=== PATIENT | female | born 1985 | race Caucasian/White ===

== ENCOUNTER → 2017-12-10 13:36 | Outpatient (CLI) | payer OTHER, SELFPAY ==
--- NOTE | 2017-12-10 13:37 | DI.MRI.S_ITS ---
PROCEDURE: MR LUMBAR SPINE WO CON INDICATIONS: Back pain w/sciatica RLE TECHNIQUE: Noncontrast sagittal T1 spin echo and T2 fast echo, sagittal STIR, axial T1 and T2 fast spin echo through the lumbar spine. In cases with scoliosis, additional coronal T2 fast spin echo may be performed. COMPARISON: [facility], , L-SPINE 2-3 VIEWS, 10/05/2014, 12:23. FINDINGS: Image quality: Motion degraded examination. Alignment and Curvature: There is normal bony alignment. Bone Marrow: Marrow is of normal overall signal. No acute vertebral body compression fractures. Lower lumbar facet arthropathy from L4-S1 Spinal Cord: Conus medullaris terminates at the L2 level. Visualized cord demonstrates normal signal and size. Paraspinous Soft Tissues: No paravertebral masses. Dependent subcutaneous soft tissue edema seen from the level of L1-L4 primarily. L1-L2: Normal appearance. L2-L3: Normal appearance. L3-L4: Normal appearance. L4-L5: Normal appearance. L5-S1: Mild disc height loss and broad-based posterior disc bulge. Superimposed small central disc protrusion image 30 series 5. There is mild central canal narrowing. Mild partial effacement of the left and right lateral recess although does not definitely abut the descending nerve roots. Moderate right foraminal narrowing. Mild left foraminal stenosis. IMPRESSION: L5-S1 disc degeneration and lower lumbar facet arthropathy. Moderate right L5-S1 foraminal narrowing. Mild left foraminal narrowing Dictated by: Sunny Benjamin M.D. on 12/10/2017 at 14:55 Approved by: Sunny Benjamin M.D. on 12/10/2017 at 15:02
== END ==
PROVIDERS: PCP Physician Assistant; Visit Provider Physician Assistant
DX: M51.17 Intervertebral disc disorders with radiculopathy, lumbosacral region (principal); M47.27 Other spondylosis with radiculopathy, lumbosacral region; M48.07 Spinal stenosis, lumbosacral region
CPT/HCPCS: 72148

== ENCOUNTER → 2018-04-03 11:22 | Outpatient (CLI) | payer OTHER, SELFPAY ==
--- NOTE | 2018-04-03 11:24 | DI.RAD.S_ITS ---
PROCEDURE: XR FINGER LT MIN 2V INDICATIONS: Possible broken thumb TECHNIQUE: AP hand, 2 views of the first finger(s) acquired. COMPARISON: None. FINDINGS: Bones: No fractures or dislocations. No suspicious bony lesions. Soft tissues: No suspicious soft tissue calcifications. IMPRESSION: No gross acute left thumb fracture or dislocation. Dictated by: Akshat Sanchez M.D. on 04/03/2018 at 12:00 Approved by: Akshat Sanchez M.D. on 04/03/2018 at 12:03
== END ==
PROVIDERS: PCP Physician Assistant; Visit Provider Physician Assistant
DX: S69.92XA Unspecified injury of left wrist, hand and finger(s), initial encounter (principal)
CPT/HCPCS: 73140

== ENCOUNTER → 2018-09-16 15:42 | Outpatient (CLI) | payer OTHER, SELFPAY ==
[2018-09-16 16:46] LABS: Alanine Aminotransferase 47 IU/L (9-52); Albumin 4.3 g/dL (3.5-5.0); Albumin Globulin Ratio 1.4 (1.0-2.8); Alkaline Phosphatase 78 U/L (38-126); Aspartate Aminotransferase 29 IU/L (14-36); BUN Creatinine Ratio 26.7 (6-22); Bilirubin Total 0.4 mg/dL (0.2-1.3); Blood Urea Nitrogen 16 mg/dL (7-17); Calcium 9.1 mg/dL (8.4-10.2); Carbon Dioxide 23 mmol/L (22-32); Chloride 107 mmol/L (98-107); Estimated Glomerular Filt Rate > 60.0 mL/min (>60); Globulin 3.1 g/dL (1.7-4.1); Glucose 84 mg/dL (70-100); HEMOLYSIS < 15 (0-50); Potassium 3.6 mmol/L (3.4-5.1); Sodium 140 mmol/L (137-145); Total Protein 7.4 g/dL (6.3-8.2)
[2018-09-16 16:59] LABS: Prolactin 20.1 ng/mL (3.0-18.6)
[2018-09-16 17:00] LABS: Follicle Stimulating Hormone 5.61 mIU/mL; Luteinizing Hormone 2.07 mIU/mL; Progesterone, Total 0.84 ng/mL
[2018-09-16 17:13] LABS: Thyroid Stimulating Hormone 0.73 uIU/mL (0.47-4.68)
[2018-09-16 17:16] LABS: Estradiol, Total 31.1 pg/mL; Testosterone 26.4 ng/dL (5.71-77.0)
[2018-09-18 12:28] LABS: Dehydroepiandrosterone Sulfate 269 mcg/dL (23-266)
[2018-09-19 20:01] LABS: Estrogen 129.9 pg/mL
== END ==
PROVIDERS: PCP Physician Assistant; Visit Provider Physician Assistant
DX: L68.0 Hirsutism (principal); N92.6 Irregular menstruation, unspecified; R10.2 Pelvic and perineal pain; E66.01 Morbid (severe) obesity due to excess calories; Z68.41 Body mass index [BMI] 40.0-44.9, adult
CPT/HCPCS: 36415; 80053; 82627; 82670; 82672; 83001; 83002; 84144; 84146; 84403; 84443

== ENCOUNTER → 2018-11-05 11:44 | Outpatient (CLI) | payer OTHER, SELFPAY ==
--- NOTE | 2018-11-05 11:47 | DI.MRI.S_ITS ---
PROCEDURE: MR BRAIN (PITUITARY) WWO CON INDICATIONS: Elevated Prolactin and DHEA levels; irreg menses; wt gain TECHNIQUE: Noncontrast sagittal and axial FLAIR, axial gradient echo, axial diffusion and ADC through the brain. Thin-slice sagittal and coronal T1 spin echo, coronal T2 fast spin echo through the pituitary. After the administration contrast, optional dynamic coronal T1 spin echo, thin-slice coronal and sagittal T1 spin echo images through the pituitary fossa; axial T1 spin echo with fat saturation through the brain. COMPARISON: None. FINDINGS: Image quality: Excellent. Pituitary Gland: The pituitary tissue is largely seen along the floor of the sella turcica.. On the postcontrast imaging, no masses or abnormally enhancing areas are seen. The pituitary stalk and infundibulum have an unremarkable appearance. A normal appearing pituitary bright spot is seen posteriorly on the precontrast sagittal T1-weighted images. The optic chiasm and the ventral forebrain have an unremarkable appearance. CSF Spaces: Ventricles are normal in size and shape. Basal cisterns are patent. No extra-axial fluid collections. Brain: No intracranial bleeds or mass effects. No abnormal intracranial enhancement. Huitron-white matter interface is intact. Diffusion weighted images demonstrate no acute ischemic insults. Brainstem is normal. Normal intravascular flow voids are present. Skull and face: Calvarial marrow is normal in signal. Orbits appear normal. Scrutiny is given to the posterior globes. It does not appear flattened. The optic nerves are unremarkable, without abnormal fluid seen along the optic nerves. Sinuses: Moderate mucosal thickening is seen within the layers of the significant paranasal sinus disease is seen elsewhere. No significant abnormal mastoid air cell can be seen. IMPRESSION: No pituitary masses or abnormal enhancement can be seen. The pituitary tissue is largely compressed along the floor of the sella turcica. Dictated by: Nic Angel M.D. on 11/05/2018 at 13:24 Approved by: Nic Angel M.D. on 11/05/2018 at 13:27
== END ==
PROVIDERS: PCP Physician Assistant; Visit Provider Physician Assistant
DX: E22.9 Hyperfunction of pituitary gland, unspecified (principal); N92.6 Irregular menstruation, unspecified; R63.5 Abnormal weight gain; E27.8 Other specified disorders of adrenal gland
CPT/HCPCS: 70553

== ENCOUNTER 2019-01-08 15:56 | Emergency (ER) | payer OTHER, SELFPAY ==
[2019-01-08 16:05] VITALS: BP 135/87; PULSE 94; RESP 18; TEMP 37.1; O2SAT 99; BMI 40.7
--- NOTE | 2019-01-08 16:25 | ED.GENADULT ---
HPI - General Adult <Zohaib Holt DO - Last Filed: 01/09/19 17:59> General Chief complaint: Urogenital-Female Stated complaint: tumors on or near ovary, has pains Time Seen by Provider: 01/08/19 16:10 Source: patient Mode of arrival: Ambulatory Limitations: no limitations History of Present Illness HPI narrative: 33-year-old female here for evaluation of acute onset of right-sided lower abdomen/adnexal pain. Patient states she has known large dermoid cyst diagnosed by her weight loss counselor provider. She has also been on control for the past 10 days secondary to PCOS. She was told that if she ever had worsening abdominal pain she should come to the emergency department for concern of ovarian torsion. Related Data Home Medications Medication Instructions Recorded Confirmed pseudoephedrine HCl 30 mg PO Q6HP PRN #0 11/23/15 01/08/19 magnesium oxide 500 mg PO BEDTIME #0 05/02/17 01/08/19 multivitamin [Multiple Vitamins] 1 tab PO DAILY #0 05/02/17 01/08/19 cetirizine 10 mg PO DAILY PRN #0 05/28/17 01/08/19 albuterol sulfate [Proventil HFA] 2 puff INH Q4H PRN 01/08/19 01/08/19 clonazepam 0.5 - 1 mg PO DAILY PRN 01/08/19 01/08/19 desog-e.estradiol/e.estradiol 1 tab PO QPM 01/08/19 01/08/19 [Kariva (28)] gabapentin [Neurontin] 300 mg PO BEDTIME 01/08/19 01/08/19 methocarbamol 500 - 1,000 mg PO DAILY PRN 01/08/19 01/08/19 sertraline 50 mg PO QPM 01/08/19 01/08/19 Previous Rx's Medication Instructions Recorded oxycodone 5 mg tablet 5 - 10 mg PO QDAYP PRN #40 tab 12/02/18 oxycodone 5 mg PO Q4-6H PRN #10 tab 01/08/19 Allergies Allergy/AdvReac Type Severity Reaction Status Date / Time adhesive [ADHESIVE] Allergy Mild Rash Verified 01/08/19 16:05 acetaminophen [From [facility]CO] AdvReac Intermediate MADE ME Verified 01/08/19 16:05 FEEL WIRED. I COULDN'T SLEEP. NOT EFFECTIVE hydrocodone [From [facility]CO] AdvReac Intermediate MADE ME Verified 01/08/19 16:05 FEEL WIRED. I COULDN'T SLEEP. NOT EFFECTIVE Review of Systems <Zohaib Holt DO - Last Filed: 01/09/19 17:59> Constitutional Constitutional: Denies fever(s) Cardiovascular Cardiovascular: Denies chest pain and Denies dyspnea Respiratory Respiratory: Denies dyspnea Gastrointestinal Gastrointestinal: Reports abdominal pain, Denies nausea and Denies vomiting Genitourinary Genitourinary: Denies dysuria, Reports pelvic pain and Denies vaginal discharge Musculoskeletal Musculoskeletal: Denies myalgias and Denies arthralgias Integumentary/Breasts Skin/Breast: Denies lesions and Denies rash Neurologic Neurologic: Denies behavioral changes Psychiatric Psychiatric: Denies behavioral changes Hematologic/Lymphatic Hematologic/Lymphatic: Denies easy bleeding and Denies easy bruising Patient History <DO Richy Pillai Last Filed: 01/09/19 17:59> Medical History Vaginal delivery (Acute) Surgical History (Updated 06/19/17 @ 06:34 by Conversion Provider) Status post tonsillectomy and adenoidectomy Social History Smoking Status: Never smoker second hand exposure: No alcohol intake: current substance use type: does not use Substance Use Type: does not use Exam <DO Richy Pillai Last Filed: 01/09/19 17:59> Initial Vital Signs Initial Vital Signs: Vital Signs Temperature 98.8 F 01/08/19 16:05 Pulse Rate 94 H 01/08/19 16:05 Respiratory Rate 18 01/08/19 16:05 Blood Pressure 135/87 01/08/19 16:05 Pulse Oximetry 99 01/08/19 16:05 Const General: cooperative and comfortable Orientation: alert, awake and oriented x3 HENMT Head: normal to inspection and normocephalic Resp Effort & Inspection: normal respiratory effort Auscultation: clear to auscultation bilaterally Cardio Rate: regular rate Rhythm: regular rhythm GI Inspection: non-distended Palpation: soft, No firm and tender (Left lower abdomen left adnexa) Back/Spine/Pelvis Back: No CVA tenderness Skin Lesions: no lesions Rashes: no rashes Neuro General: alert, awake and oriented x3 Cognition: normal cognition Speech: speech normal Extrem General: normal to inspection and capillary refill normal Psych Appearance: grossly normal and well kempt <Brown Magdaleno DO - Last Filed: 01/08/19 23:23> Initial Vital Signs Initial Vital Signs: Vital Signs Temperature 98.8 F 01/08/19 16:05 Pulse Rate 94 H 01/08/19 16:05 Respiratory Rate 18 01/08/19 16:05 Blood Pressure 135/87 01/08/19 16:05 Pulse Oximetry 99 01/08/19 16:05 Course <Zohaib Holt DO - Last Filed: 01/09/19 17:59> Orders Ordered: Discontinued Medications Hydromorphone HCl (Dilaudid) 0.5 mg IV NOW ONE Stop: 01/08/19 17:21 Last Admin: 01/08/19 17:26 Dose: 0.5 mg Documented by: MALOU Hydromorphone HCl (Dilaudid) 0.5 mg IV NOW ONE Stop: 01/08/19 18:49 Last Admin: 01/08/19 19:02 Dose: 0.5 mg Documented by: CARMENARRINGJUSTINA Morphine Sulfate (Morphine) 4 mg IV NOW ONE Stop: 01/08/19 16:28 Last Admin: 01/08/19 16:46 Dose: 4 mg Documented by: ANANYA Ondansetron HCl (Zofran) 4 mg IV NOW ONE Stop: 01/08/19 16:28 Last Admin: 01/08/19 16:46 Dose: 4 mg Documented by: CARMENARRINGJUSTINA Vital Signs Vital signs: Vital Signs - 8 hr 01/08/19 16:05 01/08/19 16:53 01/08/19 17:10 Temperature 98.8 F Pulse Rate 94 H 89 91 H Respiratory Rate 18 17 22 Blood Pressure 135/87 Blood Pressure [Right Arm] 116/74 119/81 Pulse Oximetry 99 98 98 01/08/19 18:00 01/08/19 19:10 Temperature Pulse Rate 87 Respiratory Rate 16 Blood Pressure Blood Pressure [Right Arm] 122/77 107/75 Pulse Oximetry 97 <Brown Magdaleno DO - Last Filed: 01/08/19 23:23> Course Course Narrative: Patient has been signed out to me by Dr. Holt. I have performed an independent history and physical exam. Ultrasound demonstrates good flow to both ovaries, torsion thought much less likely at this point. Her pain is drastically improved. I have discussed the case with her hop worker whom suggest we discharged her home with good return precautions as she has an appointment scheduled for Sunday already. Patient has had questions answered to her apparent satisfaction Orders Ordered: Discontinued Medications Hydromorphone HCl (Dilaudid) 0.5 mg IV NOW ONE Stop: 01/08/19 17:21 Last Admin: 01/08/19 17:26 Dose: 0.5 mg Documented by: MALOU Hydromorphone HCl (Dilaudid) 0.5 mg IV NOW ONE Stop: 01/08/19 18:49 Last Admin: 01/08/19 19:02 Dose: 0.5 mg Documented by: CAMRENARRINGJUSTINA Morphine Sulfate (Morphine) 4 mg IV NOW ONE Stop: 01/08/19 16:28 Last Admin: 01/08/19 16:46 Dose: 4 mg Documented by: CARMENARRINGJUSTINA Ondansetron HCl (Zofran) 4 mg IV NOW ONE Stop: 01/08/19 16:28 Last Admin: 01/08/19 16:46 Dose: 4 mg Documented by: CARMENARRINGJUSTINA Vital Signs Vital signs: Vital Signs - 8 hr 01/08/19 16:05 01/08/19 16:53 01/08/19 17:10 Temperature 98.8 F Pulse Rate 94 H 89 91 H Respiratory Rate 18 17 22 Blood Pressure 135/87 Blood Pressure [Right Arm] 116/74 119/81 Pulse Oximetry 99 98 98 01/08/19 18:00 01/08/19 19:10 Temperature Pulse Rate 87 Respiratory Rate 16 Blood Pressure Blood Pressure [Right Arm] 122/77 107/75 Pulse Oximetry 97 Medical Decision Making <Zohaib Holt, DO - Last Filed: 01/09/19 17:59> Medical Records Medical records reviewed: Yes I reviewed the patient's medical records. Lab Data Lab results reviewed: Yes I reviewed the patient's lab results. Result diagrams: 01/08/19 16:41 01/08/19 16:41 Labs: Lab Results 01/08/19 01/08/19 Range/Units 16:41 16:41 WBC 9.0 (4.5-11.0) X10^3/uL RBC 4.49 (4.0-5.2) X10^6/uL Hgb 13.5 (12.0-16.0) g/dL Hct 39.0 (36-46) % MCV 86.8 (80-100) fL MCH 30.1 (26-34) PG MCHC 34.7 (30-36) % RDW 13.1 (11.6-14.8) % Plt Count 235 (150-400) X10^3/uL Neut % (Auto) 66.3 (50-75) % Lymph % (Auto) 25.5 (25-40) % [place] % (Auto) 6.1 (3-14) % Eos % (Auto) 0.9 L (2-4) % Baso % (Auto) 1.2 (0-2) % Neut # (Auto) 6000 (6466-0070) /uL Lymph # (Auto) 2300 (0920-4064) /uL [place] # (Auto) 600 (0-900) /uL Eos # (Auto) 100 (0-450) /uL Baso # (Auto) 100 (0-100) /uL Sodium 139 (137-145) mmol/L Potassium 4.2 (3.4-5.1) mmol/L Chloride 107 (98-107) mmol/L Carbon Dioxide 22 (22-32) mmol/L BUN 15 (7-17) mg/dL Creatinine 0.60 (0.52-1.04) mg/dL Estimated GFR > 60.0 (>60) mL/min BUN/Creatinine Ratio 25.0 H (6-22) Glucose 92 (70-100) mg/dL Calcium 9.3 (8.4-10.2) mg/dL Point of Care Testing Test Results Negative Urine Dip Bedside Urine Glucose Negative Bedside Urine Bilirubin ++ 2 Bedside Urine Ketone +/- 5 Urine Specific [place] 1.020 Bedside Urine Occult Blood - Negative Bedside Urine pH 6.0 Bedside Urine Protein +/- 15 Bedside Urine Urobilinogen +/- 1mg Bedside Urine Nitrite - Negative Bedside Urine Leukocytes - Negative Esterase Point of care testing: Point of Care Testing Test Results Negative Urine Dip Bedside Urine Glucose Negative Bedside Urine Bilirubin ++ 2 Bedside Urine Ketone +/- 5 Urine Specific [place] 1.020 Bedside Urine Occult Blood - Negative Bedside Urine pH 6.0 Bedside Urine Protein +/- 15 Bedside Urine Urobilinogen +/- 1mg Bedside Urine Nitrite - Negative Bedside Urine Leukocytes - Negative Esterase MDM Narrative Medical decision making narrative: Patient with known large dermoid cyst. Patient does have left lower quadrant/left adnexal pain. Ultrasound ordered for evaluation of ovarian torsion. Care turned over to Dr. Magdaleno at change of shift to follow up on ultrasound. <Brown Magdaleno DO - Last Filed: 01/08/19 23:23> Lab Data Labs: Lab Results 01/08/19 01/08/19 Range/Units 16:41 16:41 WBC 9.0 (4.5-11.0) X10^3/uL RBC 4.49 (4.0-5.2) X10^6/uL Hgb 13.5 (12.0-16.0) g/dL Hct 39.0 (36-46) % MCV 86.8 (80-100) fL MCH 30.1 (26-34) PG MCHC 34.7 (30-36) % RDW 13.1 (11.6-14.8) % Plt Count 235 (150-400) X10^3/uL Neut % (Auto) 66.3 (50-75) % Lymph % (Auto) 25.5 (25-40) % [place] % (Auto) 6.1 (3-14) % Eos % (Auto) 0.9 L (2-4) % Baso % (Auto) 1.2 (0-2) % Neut # (Auto) 6000 (5479-8010) /uL Lymph # (Auto) 2300 (3213-9811) /uL [place] # (Auto) 600 (0-900) /uL Eos # (Auto) 100 (0-450) /uL Baso # (Auto) 100 (0-100) /uL Sodium 139 (137-145) mmol/L Potassium 4.2 (3.4-5.1) mmol/L Chloride 107 (98-107) mmol/L Carbon Dioxide 22 (22-32) mmol/L BUN 15 (7-17) mg/dL Creatinine 0.60 (0.52-1.04) mg/dL Estimated GFR > 60.0 (>60) mL/min BUN/Creatinine Ratio 25.0 H (6-22) Glucose 92 (70-100) mg/dL Calcium 9.3 (8.4-10.2) mg/dL Point of Care Testing Test Results Negative Urine Dip Bedside Urine Glucose Negative Bedside Urine Bilirubin ++ 2 Bedside Urine Ketone +/- 5 Urine Specific [place] 1.020 Bedside Urine Occult Blood - Negative Bedside Urine pH 6.0 Bedside Urine Protein +/- 15 Bedside Urine Urobilinogen +/- 1mg Bedside Urine Nitrite - Negative Bedside Urine Leukocytes - Negative Esterase Point of care testing: Point of Care Testing Test Results Negative Urine Dip Bedside Urine Glucose Negative Bedside Urine Bilirubin ++ 2 Bedside Urine Ketone +/- 5 Urine Specific [place] 1.020 Bedside Urine Occult Blood - Negative Bedside Urine pH 6.0 Bedside Urine Protein +/- 15 Bedside Urine Urobilinogen +/- 1mg Bedside Urine Nitrite - Negative Bedside Urine Leukocytes - Negative Esterase Discharge Plan Departure Patient Disposition: Home Clinical Impression: Pelvic pain, Dermoid cyst of both ovaries Discharge Date/Time: 01/08/19 19:18 Instructions: DI for Pelvic Pain Activity Restrictions/Additional Instructions: *You have been diagnosed with [pelvic pain, likely from dermoid cysts ] *What to do: *Take medications as directed *Follow up with 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 on Sunday as planned *Return to ER if you should have any new, worsening or concerning symptoms, such as [worsening pain, persistent vomiting, fever >101F, or other bothersome symptoms ] Prescriptions: New oxycodone 5 mg tablet 5 mg PO Q4-6H PRN (Reason: pain) Qty: 10 RF: 0 No Action pseudoephedrine HCl 30 MG tablet 30 mg PO Q6HP PRN (Reason: Congestion) Qty: 0 RF: 0 magnesium oxide 500 mg Tablet 500 mg PO BEDTIME Qty: 0 RF: 0 multivitamin [Multiple Vitamins] 1 EACH tablet 1 tab PO DAILY Qty: 0 RF: 0 cetirizine 10 MG tablet 10 mg PO DAILY PRN (Reason: Allergy Symptoms) Qty: 0 RF: 0 oxycodone 5 mg tablet 5 - 10 mg PO QDAYP PRN (Reason: back pain) Qty: 40 RF: 0 methocarbamol 500 mg tablet 500 - 1,000 mg PO DAILY PRN (Reason: muscle spasm) RF: 0 clonazepam 1 mg tablet 0.5 - 1 mg PO DAILY PRN (Reason: Anxiety) RF: 0 gabapentin [Neurontin] 300 mg capsule 300 mg PO BEDTIME RF: 0 albuterol sulfate [Proventil HFA] 90 MCG/PUFF HFA aerosol inhaler 2 puff INH Q4H PRN (Reason: Shortness Of Breath) RF: 0 sertraline 50 mg tablet 50 mg PO QPM RF: 0 desog-e.estradiol/e.estradiol [Kariva (28)] 0.15-0.02 mgx21 /0.01 mg x 5 tablet 1 tab PO QPM RF: 0 Referrals: Maye Borja PA-C [Primary Care Provider] -
--- NOTE | 2019-01-08 16:27 | DI.US.S_ITS ---
PROCEDURE: US PELVIC COMPLETE INDICATIONS: KNOWN DERMOID; INCREASING PAIN TECHNIQUE: Real-time scanning was performed of the pelvic organs, with image documentation. Additional endovaginal scanning was necessary due to incomplete visualization of the adnexal and endometrial structures by transabdominal scanning. COMPARISON: [facility], US, US PELVIC COMPLETE, 12/17/2018, 15:39. FINDINGS: Transabdominal scanning: Limited scanning through the kidneys shows no hydronephrosis. No pathologic free abdominal or pelvic fluid. Endovaginal scanning: Uterus: Uterus is normal in size at 7.5 x 4.3 x 5.0 cm. The endometrium measures 5-6 mm in combined thickness. Ovaries: Right ovary is unremarkable measuring 2.4 x 2.1 x 3.1 cm. Doppler interrogation demonstrating the expected waveforms The left ovary measures 2.4 x 1.5 cm and there is a large 9.3 x 8.5 x 9.4 cm known dermoid with heterogeneous echotexture. Doppler interrogation demonstrates expected waveforms within the left ovary. IMPRESSION: Large known left dermoid. No evidence of ovarian torsion Dictated by: Sunny Benjamin M.D. on 01/08/2019 at 19:36 Approved by: Sunny Benjamin M.D. on 01/08/2019 at 19:38
[2019-01-08] MEDS: MORPHINE 4 MG/ML INJ IV (16:46)
[2019-01-08] MEDS: ONDANSETRON 4 MG/2 ML INJ IV (16:46)
[2019-01-08 16:50] LABS: Add Manual Diff / Slide Review NO; Basophils Absolute Auto 100 /uL (0-100); Basophils Percent Auto 1.2 % (0-2); Eosinophils Absolute Auto 100 /uL (0-450); Eosinophils Percent Auto 0.9 % (2-4); Hemoglobin 13.5 g/dL (12.0-16.0); Lymphocytes Absolute Auto 2300 /uL (1100-4500); Lymphocytes Percent Auto 25.5 % (25-40); Mean Corpuscular HGB Conc 34.7 % (30-36); Mean Corpuscular Hemoglobin 30.1 PG (26-34); Mean Corpuscular Volume 86.8 fL (80-100); Monocytes Absolute Auto 600 /uL (0-900); Monocytes Percent Auto 6.1 % (3-14); Neutrophils Absolute Auto 6000 /uL (1500-7000); Neutrophils Percent Auto 66.3 % (50-75); Platelet Count 235 X10^3/uL (150-400); Red Blood Cell Count 4.49 X10^6/uL (4.0-5.2); Red Cell Distribution Width 13.1 % (11.6-14.8)
[2019-01-08 16:53] VITALS: BP 116/74; PULSE 89; RESP 17; O2SAT 98
[2019-01-08 17:03] LABS: Blood Urea Nitrogen 15 mg/dL (7-17); Calcium 9.3 mg/dL (8.4-10.2); Carbon Dioxide 22 mmol/L (22-32); Chloride 107 mmol/L (98-107); Estimated Glomerular Filt Rate > 60.0 mL/min (>60); Glucose 92 mg/dL (70-100); HEMOLYSIS 42 (0-50); Potassium 4.2 mmol/L (3.4-5.1); Sodium 139 mmol/L (137-145)
[2019-01-08 17:10] VITALS: BP 119/81; PULSE 91; RESP 22; O2SAT 98
[2019-01-08] MEDS: HYDROMORPHONE 0.5 MG INJ IV ×2 (17:26→19:02)
[2019-01-08 18:00] VITALS: BP 122/77
[2019-01-08 19:10] VITALS: BP 107/75; PULSE 87; RESP 16; O2SAT 97
== END 2019-01-08 19:18 | disposition home or self-care (01) ==
PROVIDERS: Emergency Medicine; Emergency Provider Emergency Medicine; PCP Physician Assistant
DX: R10.2 Pelvic and perineal pain (principal); D27.1 Benign neoplasm of left ovary; D27.0 Benign neoplasm of right ovary
CPT/HCPCS: 36415; 76830; 76856; 80048; 81003; 81025; 85025; 96374; 96375; 96376; 99283; 99284; J1170; J2270; J2405

== ENCOUNTER 2019-01-24 06:35 | Day surgery (SDC) | payer OTHER, SELFPAY ==
[2019-01-22 13:25] VITALS: BMI 40.1
[2019-01-24] VITALS (10 sets, daily range): BP systolic 103–127; BP diastolic 59–82; PULSE 93–135; RESP 10–20; TEMP 36.9–37.2; O2SAT 96–100; BMI 40.1
--- NOTE | 2019-01-24 | PATH_ITS ---
[facility] Accession Number: [id number] . 01 Material submitted: . uterine adnexa - LEFT OVARY, FALLOPIAN TUBE AND DERMOID CYST . 02 Diagnosis: Left Fallopian Tube, Ovary and Dermoid Cyst: Complete cross-sections of fallopian tube x1; negative for epithelial atypia or malignancy. Ovary with a mature cystic teratoma / dermoid cyst (8.5 x 6.8 x 2.5 cm); negative for atypia or malignancy. MRV 01/27/2019 1500 Local . 02 Electronically signed: . Lili Ordaz MD, Pathologist NPI- [id number] . 01 Gross description: . Received in formalin, labeled left fallopian tube + ovary + dermoid cyst, is a fimbriated fallopian tube (length-4.5 cm, diameter-0.4 cm) and a solid and cystic ovary in multiple pieces (8.5 x 6.8 x 2.5 cm in aggregate). The fallopian tube has heredia-rg smooth shiny serosa and a heredia unremarkable lumen. The ovary has rg-pink smooth shiny flat serosa and contains yellow greasy wax-like material and matted strands of hair. A scant amount of normal ovarian parenchyma is identified. Section code: (A1) fallopian tube, representative government relations serial sections; (A2) fimbria, bivalved, entirely submitted; (A3-A7) ovary, representative government relations tissue. ([id number]) /MRV 01/27/2019 1500 Local . 02 Pathologist provided ICD-10: D27.1, D27.0, R10.2 . 02 CPT . 276499 Performed at: [address], [place], [place] [id number] MD Mich Moran MD Phone: [phone] Performed at: 02 [facility] [address] [place] [id number] MD Mariya Espinoza MD Phone: [phone]
[2019-01-24] MEDS: LACTATED RINGERS 1,000 ML 100 ML IV ×2 (07:11→09:30)
--- NOTE | 2019-01-24 07:44 | PM.PREOP ---
Pre-operative Note Interval Note History & Physical reviewed/Exam performed by Physician: Yes Changes to H&P: No
[2019-01-24] MEDS: MIDAZOLAM 2 MG/2 ML VIAL IV (07:46)
--- NOTE | 2019-01-24 08:23 | SUR.OPER ---
Lithotomy on padded OR bed, head on pillow, arms secured on padded arm boards at <90 degrees abduction. Legs secured in padded yellow fins stirrups.
[2019-01-24] MEDS: BUPIVACAINE 0.25% W/ EPI (PF) 10 ML VIAL 20 ML INJ (08:29)
[2019-01-24] MEDS: ONDANSETRON 4 MG/2 ML INJ IV ×2 (09:51→10:20)
--- NOTE | 2019-01-24 09:56 | PM.OP.1 ---
Operative Date/Time/Diagnoses Date of procedure: 01/24/19 Time of procedure: 07:56 Pre-op diagnosis: Left ovarian dermoid cyst Post-op diagnosis: same Procedure & Clinicians Procedure: Left salpingoophorectomy Same procedure as scheduled: Yes Indications: Left ovarian dermoid cyst, pelvic pain Surgeon: Re Islas [employer] Specialist: July Gonzalez Anesthesia Type: General Operative Notes Findings: Normal uterus, right tube and right ovary. Left ovary with large, fat and hair filled cyst, causing stretching of fallopian tube. Abdominal survey otherwise normal. Closure Type: primary Specimen(s): other (left ovary and tube, left dermoid cyst) Estimated Blood Loss (mL): 0 Procedure in detail: After proper consents were obtained, the patient was taken to the operating room and general anesthesia obtained. She was placed in the dorsal lithotomy position and prepped and draped in the normal sterile fashion. A kramer catheter was placed in the bladder, and a sponge stick in the vagina. Attention was turned to the abdomen, where the patient became was infiltrated and a 5mm incision was made through her prior infraumbilical laparoscopy scar. Entry was attempted with a Veress needle, but the patient's preperitoneal tissue thickness required open entry via the cut down method, which was performed in the usual fashion with two Allis clamps and metzenbaum scissors. A 12mm trocar was introduced under direct visualization, and the abdomen insufflated through this trocar to 15 mm of mercury. 5 mm ports were introduced on the right and left sides of the abdomen under direct visualization in the usual fashion. The patient was placed in Trendelenburg, and an abdominal survey performed with the above findings noted. The right ovary and tube were noted to be normal, and the left ovary noted to have a large dermoid cyst. The left fallopian tube was grasped with atraumatic graspers, and the PK device used to cauterize and cut the infundibulopelvic ligament, the utero-ovarian ligament, and to remove the left fallopian tube. Good hemostasis was noted. At this point, a 15 mm Endo-Catch bag was introduced through the infraumbilical port after removal of the trocar. Under direct visualization, the left fallopian tube and ovary were placed in this bag and the end of the bag drawn up through the incision. With the assistance of a small Jolynn, the left ovarian cyst was removed piecemeal through the incision from within the bag without complication. The repeat abdominal survey was performed with the laparoscopic, and irrigation performed. Good hemostasis was noted at the site of the removal of the left ovary and tube, the trocars removed from the abdomen, incisions closed with 4 0 Biosyn with Dermabond. The sponge stick and Kramer catheter were removed. The patient tolerated the procedure well and was transferred to recovery room in stable condition. Complications: none Post-operative Condition: stable Disposition: PACU Plan for aftercare: Patient for discharge home
[2019-01-24] MEDS: fentaNYL 100 MCG/2 ML INJ 50 MCG IV (10:31)
[2019-01-24] MEDS: OXYCODONE/ACETAMINOPHEN 5/325 TABLET 1 TAB PO (10:32)
[2019-01-24] MEDS: fentaNYL 100 MCG/2 ML INJ IV (10:38)
--- NOTE | 2019-01-24 10:41 | SUR.PHASEI ---
Pt arrived, awakened and c/o nausea, medicated with zofran, order obtained for reglan due to continued nausea, after reglan given nausea resolved, pt then c/0 8/10 pain and medicated with fentanyl and percocet. pt in pacu observation after iv med given.
--- NOTE | 2019-01-24 11:05 | SUR.PHASEI ---
Pt to opd, pain 0/10.
== END 2019-01-24 11:33 | disposition home or self-care (01) ==
PROVIDERS: PCP Physician Assistant; Visit Provider Obstetrics & Gynecology
PROC: (CPT 58661; principal; 2019-01-24 07:45)
DX: D27.1 Benign neoplasm of left ovary (principal); E66.9 Obesity, unspecified; Z68.41 Body mass index [BMI] 40.0-44.9, adult
CPT/HCPCS: 58661; J1100; J1885; J2250; J2405; J2704; J3010

== ENCOUNTER 2019-01-25 06:56 | Inpatient (IN) | payer OTHER, SELFPAY ==
[2019-01-25] VITALS (56 sets, daily range): BP systolic 62–130; BP diastolic 38–88; PULSE 126–153; RESP 16–45; TEMP 35.4–38.4; O2SAT 91–99; BMI 39.5
--- NOTE | 2019-01-25 07:08 | DI.RAD.S_ITS ---
PROCEDURE: XR CHEST 1V INDICATIONS: chest pain TECHNIQUE: One view of the chest was acquired. COMPARISON: [facility], , XR CXR 2 VIEW, 06/05/1998, 14:05. FINDINGS: Surgical changes and devices: None. Lungs and pleura: There are low lung volumes. Linear opacities are demonstrated in the lung bases. No pleural effusions or pneumothorax. Mediastinum: Mediastinal contours appear normal. Heart size is normal. Bones and chest wall: No suspicious bony lesions. Overlying soft tissues appear unremarkable. IMPRESSION: 1. Low lung volumes with linear bibasilar opacities likely representing atelectasis. Dictated by: Mich Urrutia M.D. on 01/25/2019 at 7:26 Approved by: Mich Urrutia M.D. on 01/25/2019 at 7:27
[2019-01-25] MEDS: ONDANSETRON 4 MG/2 ML INJ IV (07:20)
[2019-01-25 07:29] LABS: Add Manual Diff / Slide Review NO; Basophils Absolute Auto 100 /uL (0-100); Basophils Percent Auto 1.3 % (0-2); Eosinophils Absolute Auto 0 /uL (0-450); Eosinophils Percent Auto 0.1 % (2-4); Hematocrit 58.1 % (36-46); Hemoglobin 19.4 g/dL (12.0-16.0); Lymphocytes Absolute Auto 500 /uL (1100-4500); Lymphocytes Percent Auto 9.5 % (25-40); Mean Corpuscular HGB Conc 33.4 % (30-36); Mean Corpuscular Hemoglobin 30.1 PG (26-34); Mean Corpuscular Volume 90.1 fL (80-100); Monocytes Absolute Auto 300 /uL (0-900); Monocytes Percent Auto 5.6 % (3-14); Neutrophils Absolute Auto 4700 /uL (1500-7000); Neutrophils Percent Auto 83.5 % (50-75); Platelet Count 418 X10^3/uL (150-400); Red Blood Cell Count 6.45 X10^6/uL (4.0-5.2); Red Cell Distribution Width 13.4 % (11.6-14.8); White Blood Cell Count 5.6 X10^3/uL (4.5-11.0)
[2019-01-25 07:35] LABS: INR 1.2 (0.9-1.3); Prothrombin Time 14.3 SECONDS (10.1-12.7)
--- NOTE | 2019-01-25 07:36 | PC.NURSE ---
Pt arrived to ED pale in color, vomiting into emesis basin. Pt skin cool and clammy. sclera pale. Hypotensive 80's systolic, HR 145. MD at bedside. pt had L ovary removed for Dermoid cyst yesterday and has been vomiting x 12 hours. no blood noted in vomit. AAOx3, RR 30-35, coached to slow breathing, placed on cardiac monitoring, abd firm and distended. Laproscopic incisions intact. MD at bedside for FAST exam. pt lied flat and trendelenberged. IV x 2 placed and labs drawn and sent. Meds given per MAR. IVF infusing by pressure bag and Lab notified of 2 units of STAT blood. OR team called. 0749: OR team in ED to consult. 0800: O Neg STAT blood infusing at this time. consent signed and in chart. 0815: pt tolerating blood well. Fentanyl given per order. BP 90/55. pt appears more pink in color.
[2019-01-25 07:38] LABS: PTT Partial Thromboplastin Tim 30 SECONDS (26.4-36.2)
[2019-01-25 07:39] LABS: Albumin 4.4 g/dL (3.5-5.0); Albumin Globulin Ratio 1.4 (1.0-2.8); Alkaline Phosphatase 60 U/L (38-126); Aspartate Aminotransferase 27 IU/L (14-36); BUN Creatinine Ratio 14.2 (6-22); Bilirubin Total 1.6 mg/dL (0.2-1.3); Blood Urea Nitrogen 17 mg/dL (7-17); Calcium 9.8 mg/dL (8.4-10.2); Carbon Dioxide 14 mmol/L (22-32); Chloride 103 mmol/L (98-107); Creatine Kinase 44 U/L (30-135); Estimated Glomerular Filt Rate 51.7 mL/min (>60); Globulin 3.2 g/dL (1.7-4.1); Glucose 228 mg/dL (70-100); HEMOLYSIS 23 (0-50); Lipase 24 U/L (23-300); Potassium 3.8 mmol/L (3.4-5.1); Sodium 138 mmol/L (137-145); Total Protein 7.6 g/dL (6.3-8.2)
[2019-01-25] MEDS: fentaNYL 100 MCG/2 ML INJ 25 MCG IV ×2 (07:39→08:10)
--- NOTE | 2019-01-25 07:42 | ED_ITS ---
HPI - Nausea/Vomiting/Diarrhea General Chief complaint: Nausea/Vomiting/Diarrhea Stated complaint: surgery yesterday/throwing up Time Seen by Provider: 01/25/19 07:18 Mode of arrival: Wheelchair History of Present Illness HPI Narrative: This is a 33-year-old female who underwent oophorectomy and dermoid cyst removal wt Dr. Islas yesterday who presents with abdominal pain distention and lightheadedness. She states that she was in pain and nauseated throughout most of the night, this morning she began to feel lightheaded she feels like her abdomen is more distended than usual, and she has pain which she rates as severe and somewhat diffuse throughout her abdomen but worse on the right side. She has had vomiting multiple times throughotu the night, she denies any blood in her vomit or blood in her stool. Related Data Home Medications Medication Instructions Recorded Confirmed pseudoephedrine HCl 30 mg PO Q6HP PRN #0 11/23/15 01/22/19 magnesium oxide 500 mg PO BEDTIME #0 05/02/17 01/24/19 multivitamin [Multiple Vitamins] 1 tab PO DAILY #0 05/02/17 01/24/19 cetirizine 10 mg PO DAILY PRN #0 05/28/17 01/24/19 albuterol sulfate [Proventil HFA] 2 puff INH Q4H PRN 01/08/19 01/22/19 clonazepam 0.5 - 1 mg PO DAILY PRN 01/08/19 01/24/19 desog-e.estradiol/e.estradiol 1 tab PO QPM 01/08/19 01/24/19 [Lyudmila (28)] gabapentin [Neurontin] 300 mg PO BEDTIME 01/08/19 01/24/19 methocarbamol 500 - 1,000 mg PO DAILY PRN 01/08/19 01/24/19 sertraline 50 mg PO QPM 01/08/19 01/24/19 Previous Rx's Medication Instructions Recorded oxycodone 5 mg tablet 5 mg PO Q4-6H PRN #40 tab 01/11/19 ondansetron 4 mg PO Q8H #30 each 01/24/19 oxycodone 5 mg PO Q6H PRN #5 tab 01/24/19 Allergies Allergy/AdvReac Type Severity Reaction Status Date / Time adhesive [ADHESIVE] Allergy Mild Rash Verified 01/10/19 13:45 hydrocodone [From NORCO] AdvReac Intermediate MADE ME Verified 01/10/19 13:45 FEEL WIRED. I COULDN'T SLEEP. NOT EFFECTIVE Review of Systems Constitutional Constitutional: Denies fever(s) Eyes Eyes: Denies change in vision Cardiovascular Cardiovascular: Denies chest pain Respiratory Respiratory: Denies hemoptysis Gastrointestinal Gastrointestinal: Reports abdominal pain Genitourinary Genitourinary: Denies hematuria Musculoskeletal Comments: No LE edema Neurologic Comments: lightheaded Hematologic/Lymphatic Hematologic/Lymphatic: Denies easy bleeding Patient History Medical History Vaginal delivery (Acute) Surgical History Status post tonsillectomy and adenoidectomy Social History household members: spouse Smoking Status: Never smoker second hand exposure: No alcohol intake: current substance use type: does not use Smoking Status: Never smoker Substance Use Type: does not use Exam Narrative Exam Narrative: General:Pale, tachypneic, awake and alert Head: Atraumatic Neck: Normal range of motion ENT: Pale lips, pale conjunctiva Cardiac: Tachycardic, regular rhythm, narrow complex which appears to be sinus on the monitor Respiratory: Tachypneic, lungs clear to auscultation bilaterally Abd: Soft, rotund, laparoscopy incisions appear well closed and approximated with skin glue in place. Patient is diffusely tender more so on the right abdomen, no guarding Neuro: Alert and oriented x 3 Initial Vital Signs Initial Vital Signs: Vital Signs Temperature 95.8 F L 01/25/19 07:11 Pulse Rate 145 H 01/25/19 07:11 Respiratory Rate 30 H 01/25/19 07:11 Blood Pressure 92/58 L 01/25/19 07:11 Pulse Oximetry 97 01/25/19 07:11 Course Orders Ordered: Acetaminophen (Tylenol) 650 mg [place] Q6HR PRN PRN Reason: Fever Last Admin: 01/25/19 17:41 Dose: 650 mg Documented by: KEV Dextrose ([email or web address]) 25 gm IV PRN PRN PRN Reason: Hypoglycemia Enoxaparin Sodium (Lovenox) 40 mg SUBCUT DAILY [facility] Last Admin: 01/25/19 15:34 Dose: 40 mg Documented by: KEV Lactated Ringer's (Lactated Ringers) 1,000 mls @ 175 mls/hr IV CONT WILDA Last Admin: 01/25/19 19:28 Dose: 175 mls/hr Documented by: Infusion: 01/25/19 19:28 Dose: 175 mls/hr Documented by: Infusion: 01/25/19 16:11 Dose: 175 mls/hr Documented by: Admin: 01/25/19 13:58 Dose: 125 mls/hr Documented by: DENVER Piperacillin/Tazobactam/Dextrose (Zosyn) 3.375 gm in 50 mls @ 100 mls/hr IV Q6H WILDA Last Infusion: 01/25/19 18:55 Dose: 0 mls/hr Documented by: Admin: 01/25/19 18:25 Dose: 100 mls/hr Documented by: KEV Norepinephrine Bitartrate 4 mg (/ Dextrose) 254 mls @ 30.48 mls/hr IV TITRATE WILDA; Protocol Last Titration: 01/25/19 19:37 Dose: 15 mcg/min, 57.15 mls/hr Documented by: Admin: 01/25/19 19:37 Dose: 20 mcg/min, 76.2 mls/hr Documented by: Titration: 01/25/19 19:29 Dose: 20 mcg/min, 76.2 mls/hr Documented by: Titration: 01/25/19 18:55 Dose: 20 mcg/min, 76.2 mls/hr Documented by: Titration: 01/25/19 16:00 Dose: 15 mcg/min, 57.15 mls/hr Documented by: Titration: 01/25/19 15:04 Dose: 10 mcg/min, 38.1 mls/hr Documented by: Titration: 01/25/19 13:46 Dose: 6 mcg/min, 22.86 mls/hr Documented by: Titration: 01/25/19 13:40 Dose: 4 mcg/min, 15.24 mls/hr Documented by: Admin: 01/25/19 13:36 Dose: 2 mcg/min, 7.62 mls/hr Documented by: DENVER Propofol (Propofol) 1,000 mg in 100 mls @ 3.334 mls/hr IV TITRATE WILDA; Protocol Last Admin: 01/25/19 18:36 Dose: 45 mcg/kg/min, 30.005 mls/hr Documented by: Titration: 01/25/19 18:36 Dose: 45 mcg/kg/min, 30.005 mls/hr Documented by: Titration: 01/25/19 17:33 Dose: 45 mcg/kg/min, 30.005 mls/hr Documented by: Titration: 01/25/19 16:55 Dose: 40 mcg/kg/min, 26.671 mls/hr Documented by: Titration: 01/25/19 16:40 Dose: 45 mcg/kg/min, 30.005 mls/hr Documented by: Admin: 01/25/19 15:24 Dose: 50 mcg/kg/min, 33.339 mls/hr Documented by: Titration: 01/25/19 15:24 Dose: 50 mcg/kg/min, 33.339 mls/hr Documented by: Admin: 01/25/19 12:25 Dose: 50 mcg/kg/min, 33.339 mls/hr Documented by: JAGJIT Lactated Ringer's (Lactated Ringers) 1,000 mls @ 1,000 mls/hr IV BOLUS ONE Stop: 01/25/19 20:10 Last Admin: 01/25/19 19:27 Dose: 1,000 mls/hr Documented by: KEV Vasopressin 20 unit/ Sodium (Chloride) 101 mls @ 6.06 mls/hr IV TITRATE WILDA Last Admin: 01/25/19 19:54 Dose: 0.02 unit/min, 6.06 mls/hr Documented by: KEV Insulin Aspart (Novolog Flexpen) 0 unit SUBCUT Q6HR WILDA; Protocol Last Admin: 01/25/19 17:55 Dose: 1 unit Documented by: KEV Cosigned by: CHARU Morphine Sulfate (Morphine) 2 mg IV Q1H PRN PRN Reason: Pain, Moderate (4-6) Last Admin: 01/25/19 18:24 Dose: 2 mg Documented by: Admin: 01/25/19 16:34 Dose: 2 mg Documented by: KEV Naloxone HCl (Narcan) 0.2 mg IV Q2MIN PRN PRN Reason: Opiate Reversal Pantoprazole Sodium (Protonix) 40 mg IV DAILY WILDA Discontinued Medications Albuterol (Ventolin) 2.5 mg INH NOW PRN PRN Reason: Coughing, Wheezing, Dyspnea Bupivacaine HCl/Epinephrine Bitart (Sensorcaine 0.5% W/ Epi (Pf)) 30 ml INJ NOW ONE Stop: 01/25/19 10:54 Last Admin: 01/25/19 10:53 Dose: 30 ml Documented by: JENNY Diphenhydramine HCl (Benadryl) 25 mg IV NOW ONE Stop: 01/25/19 12:46 Last Admin: 01/25/19 12:20 Dose: 25 mg Documented by: JAGJIT Fentanyl (Sublimaze) 25 mcg IV Q1H PRN PRN Reason: Pain, Severe (7-10) Last Admin: 01/25/19 07:39 Dose: 25 mcg Documented by: SHOAIB Fentanyl (Sublimaze) 25 mcg IV NOW ONE Stop: 01/25/19 08:07 Last Admin: 01/25/19 08:10 Dose: 25 mcg Documented by: SHOAIB Fentanyl (Sublimaze) 50 mcg IV NOW ONE Stop: 01/25/19 08:43 Last Admin: 01/25/19 08:47 Dose: 50 mcg Documented by: SHOAIB Hydromorphone HCl (Dilaudid) 0 mg IV Q5M PRN PRN Reason: Pain, Severe (7-10) Hydromorphone HCl (Dilaudid) 0 mg IV Q5M PRN PRN Reason: Pain, Moderate (4-6) Hydromorphone HCl (Dilaudid) 0 mg IV Q5MIN PRN PRN Reason: Pain, Mild (1-3) Sodium Chloride (Normal Saline 0.9%) 1,000 mls @ 1,000 mls/hr IV BOLUS STA Stop: 01/25/19 09:16 Last Infusion: 01/25/19 09:00 Dose: 0 mls/hr Documented by: Admin: 01/25/19 08:41 Dose: 1,000 mls/hr Documented by: SHOAIB Acetaminophen (Ofirmev) 1,000 mg in 100 mls @ 400 mls/hr IV NOW ONE Stop: 01/25/19 09:45 Last Infusion: 01/25/19 10:15 Dose: 0 mls/hr Documented by: Admin: 01/25/19 09:50 Dose: 400 mls/hr Documented by: LEXUS Lactated Ringer's (Lactated Ringers) 1,000 mls @ 42 mls/hr IV CONT WILDA Last Infusion: 01/25/19 14:11 Dose: 0 mls/hr Documented by: Admin: 01/25/19 11:51 Dose: 42 mls/hr Documented by: Infusion: 01/25/19 10:40 Dose: 42 mls/hr Documented by: Admin: 01/25/19 09:30 Dose: 42 mls/hr Documented by: Infusion: 01/25/19 09:30 Dose: 42 mls/hr Documented by: Admin: 01/25/19 09:00 Dose: 42 mls/hr Documented by: GE[place] Piperacillin/Tazobactam/Dextrose (Zosyn) 3.375 gm in 50 mls @ 100 mls/hr IV NOW ONE Stop: 01/25/19 10:18 Last Infusion: 01/25/19 11:38 Dose: 0 mls/hr Documented by: Admin: 01/25/19 10:10 Dose: 100 mls/hr Documented by: LEXUS Cefazolin Sodium/Dextrose (Ancef) 2 gm in 100 mls @ 200 mls/hr IV NOW ONE Stop: 01/25/19 11:22 Last Infusion: 01/25/19 09:26 Dose: 0 mls/hr Documented by: Admin: 01/25/19 09:10 Dose: 200 mls/hr Documented by: [place] Lactated Ringer's (Lactated Ringers) 1,000 mls @ 1,000 mls/hr IV BOLUS ONE Stop: 01/25/19 13:55 Last Infusion: 01/25/19 14:11 Dose: 0 mls/hr Documented by: Admin: 01/25/19 12:30 Dose: 1,000 mls/hr Documented by: [place] Norepinephrine Bitartrate 4 mg (/ Dextrose) 254 mls @ 30.48 mls/hr IV TITRATE [facility]; Protocol Last Admin: 01/25/19 13:37 Dose: Not Given Documented by: DENVER Piperacillin/Tazobactam/Dextrose (Zosyn) 3.375 gm in 50 mls @ 100 mls/hr IV NOW ONE Stop: 01/25/19 13:45 Last Admin: 01/25/19 14:54 Dose: Not Given Documented by: JAGJIT Fluconazole (Diflucan) 400 mg in 200 mls @ 100 mls/hr IV NOW ONE Stop: 01/25/19 15:59 Last Infusion: 01/25/19 16:00 Dose: 0 mls/hr Documented by: Admin: 01/25/19 13:45 Dose: 100 mls/hr Documented by: JAGJIT Lactated Ringer's (Lactated Ringers) 1,000 mls @ 500 mls/hr IV BOLUS ONE Stop: 01/25/19 17:47 Last Infusion: 01/25/19 18:13 Dose: 0 mls/hr Documented by: Admin: 01/25/19 16:11 Dose: 500 mls/hr Documented by: KEV Insulin Aspart (Novolog Flexpen) 0 unit SUBCUT Q6H [facility]; Protocol Ondansetron HCl (Zofran) 4 mg IV Q2HR PRN PRN Reason: Nausea And Vomiting Last Admin: 01/25/19 07:20 Dose: 4 mg Documented by: SHOAIB Ondansetron HCl (Zofran) 4 mg IV NOW PRN PRN Reason: Nausea And Vomiting Oxycodone HCl (Percolone) 5 mg PO NOW PRN PRN Reason: Mild or moderate pain Pantoprazole Sodium (Protonix) 40 mg IV NOW ONE Stop: 01/25/19 13:17 Last Admin: 01/25/19 14:53 Dose: 40 mg Documented by: JAGJIT Vasopressin (Vasostrict) 20 unit IV CONT WILDA Vital Signs Vital signs: Vital Signs - 8 hr 01/25/19 07:11 01/25/19 07:23 01/25/19 07:26 Temperature 95.8 F L Pulse Rate 145 H 142 H 130 H Respiratory Rate 30 H 45 H 33 H Blood Pressure 92/58 L Blood Pressure [Right Arm] 62/40 L 96/67 Pulse Oximetry 97 95 95 01/25/19 07:30 01/25/19 07:35 01/25/19 07:40 Temperature Pulse Rate 130 H 127 H 127 H Respiratory Rate 35 H 35 H 36 H Blood Pressure Blood Pressure [Right Arm] 105/71 90/61 Pulse Oximetry 95 95 95 MDM - Nausea/Vomiting/Diarrhea Differential Diagnosis Differential diagnosis: Likely drug-induced nausea and vomiting, dehydration and other (Hypovolemic shock, intraabdominal hemorrhage, bowel injury, electrolyte abnormality) Medical Records Attestation: I reviewed the patient's medical records. Lab Data Attestation: I reviewed the patient's lab results. Result diagrams: 01/25/19 18:10 01/25/19 18:10 Labs: Lab Results 01/25/19 01/25/19 01/25/19 Range/Units 07:15 07:15 07:15 WBC 5.6 (4.5-11.0) X10^3/uL RBC 6.45 H (4.0-5.2) X10^6/uL Hgb 19.4 H (12.0-16.0) g/dL Hct 58.1 H (36-46) % MCV 90.1 (80-100) fL MCH 30.1 (26-34) PG MCHC 33.4 (30-36) % RDW 13.4 (11.6-14.8) % Plt Count 418 H (150-400) X10^3/uL Neut % (Auto) 83.5 H (50-75) % Lymph % (Auto) 9.5 L (25-40) % [place] % (Auto) 5.6 (3-14) % Eos % (Auto) 0.1 L (2-4) % Baso % (Auto) 1.3 (0-2) % Neut # (Auto) 4700 (2690-3770) /uL Lymph # (Auto) 500 L (7970-1464) /uL [place] # (Auto) 300 (0-900) /uL Eos # (Auto) 0 (0-450) /uL Baso # (Auto) 100 (0-100) /uL PT 14.3 H (10.1-12.7) SECONDS INR 1.2 (0.9-1.3) APTT 30 (26.4-36.2) SECONDS Sodium 138 (137-145) mmol/L Potassium 3.8 (3.4-5.1) mmol/L Chloride 103 (98-107) mmol/L Carbon Dioxide 14 L (22-32) mmol/L BUN 17 (7-17) mg/dL Creatinine 1.20 H (0.52-1.04) mg/dL Estimated GFR 51.7 L (>60) mL/min BUN/Creatinine Ratio 14.2 (6-22) Glucose 228 H (70-100) mg/dL Lactate (0.7-2.1) mmol/L Calcium 9.8 (8.4-10.2) mg/dL Total Bilirubin 1.6 H (0.2-1.3) mg/dL AST 27 (14-36) IU/L ALT 27 (<35) IU/L Alkaline Phosphatase 60 (38-126) U/L Total Creatine Kinase 44 (30-135) U/L CK-MB (CK-2) TNP CK-MB (CK-2) Rel Index TNP Troponin I < 0.012 (0.01-0.034) ng/mL Total Protein 7.6 (6.3-8.2) g/dL Albumin 4.4 (3.5-5.0) g/dL Globulin 3.2 (1.7-4.1) g/dL Albumin/Globulin Ratio 1.4 (1.0-2.8) Lipase 24 (23-300) U/L Blood Type Antibody Screen Crossmatch 01/25/19 01/25/19 Range/Units 07:15 07:15 WBC (4.5-11.0) X10^3/uL RBC (4.0-5.2) X10^6/uL Hgb (12.0-16.0) g/dL Hct (36-46) % MCV (80-100) fL MCH (26-34) PG MCHC (30-36) % RDW (11.6-14.8) % Plt Count (150-400) X10^3/uL Neut % (Auto) (50-75) % Lymph % (Auto) (25-40) % [place] % (Auto) (3-14) % Eos % (Auto) (2-4) % Baso % (Auto) (0-2) % Neut # (Auto) (7631-4491) /uL Lymph # (Auto) (4217-9287) /uL [place] # (Auto) (0-900) /uL Eos # (Auto) (0-450) /uL Baso # (Auto) (0-100) /uL PT (10.1-12.7) SECONDS INR (0.9-1.3) APTT (26.4-36.2) SECONDS Sodium (137-145) mmol/L Potassium (3.4-5.1) mmol/L Chloride (98-107) mmol/L Carbon Dioxide (22-32) mmol/L BUN (7-17) mg/dL Creatinine (0.52-1.04) mg/dL Estimated GFR (>60) mL/min BUN/Creatinine Ratio (6-22) Glucose (70-100) mg/dL Lactate 7.2 H* (0.7-2.1) mmol/L Calcium (8.4-10.2) mg/dL Total Bilirubin (0.2-1.3) mg/dL AST (14-36) IU/L ALT (<35) IU/L Alkaline Phosphatase (38-126) U/L Total Creatine Kinase (30-135) U/L CK-MB (CK-2) CK-MB (CK-2) Rel Index Troponin I (0.01-0.034) ng/mL Total Protein (6.3-8.2) g/dL Albumin (3.5-5.0) g/dL Globulin (1.7-4.1) g/dL Albumin/Globulin Ratio (1.0-2.8) Lipase (23-300) U/L Blood Type O Positive Antibody Screen Negative Crossmatch See Detail Imaging Data CT scan - abdomen: Radiologist's impression: IMPRESSION: 1. Small to moderate amount of pneumoperitoneum and free fluid. Although the findings are likely related to patient's recent arthroscopic surgery, there is a slightly hyperdense component of the free fluid in the right lower quadrant. Associated hemorrhage cannot be excluded although no discrete focus of active extravasation is identified. Recommend correlation clinically and a short term followup repeat study if indicated. 2. Segmental wall thickening involving small bowel loops in the left upper quadrant and the ascending colon are nonspecific. The findings may reflect a mild infectious or inflammatory process or reactive changes related to recent surgery. A message was left with the patient's nurse for Dr. Islas who was in surgery at the time of dictation. Dictated by: Mich Urrutia M.D. on 01/25/2019 at 7:57 Approved by: Mich Urrutia M.D. on 01/25/2019 at 8:08 ECG Data Interpretation: Time 7:14 a.m., rate 145, rhythm sinus tachycardia, there is poor R-wave progression, there is questionable ST depression in 1 and aVL though this may be rate related, there is no convincing ST elevation. MDM Narrative Medical decision making narrative: On arrival patient is hypotensive, tachycardic, and tachypneic. She appears very uncomfortable and she has generalized abdominal tenderness. Her initial systolic blood pressures in the 80s. IVs were inserted bilaterally, she was placed on a monitor, and the labs and a blood type and screen were ordered. Bedside ultrasound was performed showing free fluid in the abdomen, which is difficult to interpret given the patient has had laparoscopic surgery yesterday, but is concerning for potential hemorrhagic process or possible hollow viscous injury. She was given a L of normal saline and a unit of blood empirically, and I immediately called Dr. Islas discussing my concern and feeling that she needs to go to the OR for re- exploration. Dr. Islas performed the surgery on the patient yesterday, she promptly arrived in the emergency department. With these interventions pt had improvement in her heart rate, which decreased from the 140s to 110s, her systolic blood pressure increased from a low of around 60 systolic up to 100s. No fever. Patient got Zofran as well as pushes of fentanyl 25 mg for pain control. After discussion with Dr. Islas she would like a CT prior to OR, I do feel patient is hemodynamically stable enough to tolerate this. Labs showed hemoconcentration, no leukocytosis, borderline mild leukopenia. She was given additional L of normal saline. Patient was taken to CT and subsequently was quickly transferred to the operating room, with plans for admission to OB afterwards. While she was in the operating room the read came back showing some pneumoperitoneum and free fluid, which may represent hemorrhage versus postoperative findings, there is some small bowel thickening which is read as nonspecific. I did update Dr. Islas with this read while they were in the OR, they are performing laparoscopy. Discharge Plan Departure Patient Disposition: Admitted As Inpatient Clinical Impression: Hypovolemic shock Discharge Date/Time: 01/25/19 09:00 Admit Date/Time: 01/25/19 07:44 Admit Provider: Re Islas
[2019-01-25 07:43] LABS: Lactate (Lactic Acid) 7.2 mmol/L (0.7-2.1)
[2019-01-25 07:45] LABS: Alanine Aminotransferase 27 IU/L (<35)
[2019-01-25 07:51] LABS: Troponin I < 0.012 ng/mL (0.01-0.034)
--- NOTE | 2019-01-25 07:53 | DI.CT.S_ITS ---
PROCEDURE: CT ABDOMEN PELVIS W CON INDICATIONS: Abdominal pain and distension one day status post laparoscopic oophorectomy. TECHNIQUE: After the administration of intravenous contrast, 5 mm thick sections acquired from the diaphragm to the symphysis. 5 mm coronal and sagittal reformats were acquired. For radiation dose reduction, the following was used: automated exposure control, adjustment of mA and/or kV according to patient size. COMPARISON: [facility], , PELVIC COMPLETE, 01/08/2019, 18:00. FINDINGS: Image quality: Excellent. ABDOMEN: Lung bases: There are small bilateral pleural effusions with associated dependent atelectasis. Heart size is normal. Solid organs: Evaluation of the liver demonstrates no focal hepatic lesions. The gallbladder is surgically absent. Biliary system is non-dilated. Pancreas enhances normally. No peripancreatic fat stranding or fluid collections. No pancreatic duct dilatation. The spleen is normal in size. No adrenal nodules. Kidneys demonstrate no hydronephrosis. Peritoneum and bowel: There are a few segments of mild small bowel wall thickening in the left upper quadrant. There is also mild segmental wall thickening of the ascending and proximal transverse colon. Colonic diverticulosis is demonstrated. There is a moderate amount of pneumoperitoneum throughout the abdomen and pelvis likely related to recent laparoscopic surgery. There is also a small to moderate amount of free fluid them straight within all 4 quadrants in the abdomen and pelvis. This includes slightly hyperdense fluid in the right lower quadrant. No loculated fluid collections. No definite focus of active extravasation identified. Nodes and vessels: No retroperitoneal or mesenteric adenopathy by size criteria. Aorta and inferior vena cava are normal in size. Miscellaneous: No ventral hernias. PELVIS: Genitourinary: Bladder wall thickness is normal. Miscellaneous: No inguinal hernias or adenopathy. Bones: No suspicious bony lesions. No vertebral body compression fractures. IMPRESSION: 1. Small to moderate amount of pneumoperitoneum and free fluid. Although the findings are likely related to patient's recent arthroscopic surgery, there is a slightly hyperdense component of the free fluid in the right lower quadrant. Associated hemorrhage cannot be excluded although no discrete focus of active extravasation is identified. Recommend correlation clinically and a short term followup repeat study if indicated. 2. Segmental wall thickening involving small bowel loops in the left upper quadrant and the ascending colon are nonspecific. The findings may reflect a mild infectious or inflammatory process or reactive changes related to recent surgery. A message was left with the patient's nurse for Dr. Islas who was in surgery at the time of dictation. Dictated by: Mich Urrutia M.D. on 01/25/2019 at 7:57 Approved by: Mich Urrutia M.D. on 01/25/2019 at 8:08
[2019-01-25 08:06] LABS: Hematocrit 52.5 % (36-46); Hemoglobin 17.8 g/dL (12.0-16.0); Mean Corpuscular HGB Conc 33.8 % (30-36); Mean Corpuscular Hemoglobin 30.4 PG (26-34); Mean Corpuscular Volume 89.7 fL (80-100); Platelet Count 376 X10^3/uL (150-400); Red Blood Cell Count 5.86 X10^6/uL (4.0-5.2); Red Cell Distribution Width 13.2 % (11.6-14.8); White Blood Cell Count 4.4 X10^3/uL (4.5-11.0)
--- NOTE | 2019-01-25 08:19 | P.HP_ITS ---
History of Present Illness History of Present Illness Date Patient Seen: 01/25/19 Time Patient Seen: 08:00 Chief complaint: surgery yesterday/throwing up Narrative: This patient is a 33yo P1 presenting to the ED with pain, nausea, vomiting, tachycardia, and hypotension after a laparoscopic left salpingoophorectomy on the morning of 01/24, for a large dermoid cyst. The patient reports that she began having nausea and right shoulder pain last night at approx. 8 PM, and that she has been nauseated and vomiting, unable to tolerate PO fluids or pain medication, and in increasingly severe abdominal pain since. She reports that she has no chest pain, palpitations, NEWBY, visual changes, or fevers. She has voided, but is not passing flatus. Her surgery had no noted intraoperative complications. Patient History Medical History Vaginal delivery (Acute) Surgical History Status post tonsillectomy and adenoidectomy Family & Social History Social History: household members spouse Safety & Behavioral: Feels Safe in Current Yes Environment Been Physically Hurt or No Threatened By a Person Tobacco & Substance use: Smoking Status Never smoker alcohol intake current Substance Use Type does not use Meds Home Medications and Allergies Home Medications Medication Instructions Recorded Confirmed Type pseudoephedrine HCl 30 mg PO Q6HP PRN #0 11/23/15 01/22/19 History magnesium oxide 500 mg PO BEDTIME #0 05/02/17 01/24/19 History multivitamin [Multiple Vitamins] 1 tab PO DAILY #0 05/02/17 01/24/19 History cetirizine 10 mg PO DAILY PRN #0 05/28/17 01/24/19 History albuterol sulfate [Proventil HFA] 2 puff INH Q4H PRN 01/08/19 01/22/19 History clonazepam 0.5 - 1 mg PO DAILY PRN 01/08/19 01/24/19 History desog-e.estradiol/e.estradiol 1 tab PO QPM 01/08/19 01/24/19 History [Kariva (28)] gabapentin [Neurontin] 300 mg PO BEDTIME 01/08/19 01/24/19 History methocarbamol 500 - 1,000 mg PO DAILY PRN 01/08/19 01/24/19 History sertraline 50 mg PO QPM 01/08/19 01/24/19 History oxycodone 5 mg tablet 5 mg PO Q4-6H PRN #40 tab 01/11/19 01/24/19 Rx ondansetron 4 mg PO Q8H #30 each 01/24/19 Rx oxycodone 5 mg PO Q6H PRN #5 tab 01/24/19 Rx Allergies Allergy/AdvReac Type Severity Reaction Status Date / Time adhesive [ADHESIVE] Allergy Mild Rash Verified 01/10/19 13:45 hydrocodone [From NORCO] AdvReac Intermediate MADE ME Verified 01/10/19 13:45 FEEL WIRED. I COULDN'T SLEEP. NOT EFFECTIVE Review of Systems Constitutional Constitutional: Reports system reviewed and no additional complaints, except as documented Cardiovascular Cardiovascular: Reports as per HPI Respiratory Respiratory: Reports as per HPI Gastrointestinal Gastrointestinal: Reports as per HPI Genitourinary Genitourinary: Reports as per HPI Exam Vital Signs (past 8 hours): - 01/25/19 07:11 01/25/19 07:23 01/25/19 07:26 Temperature 95.8 F L Pulse Rate 145 H 142 H 130 H Respiratory Rate 30 H 45 H 33 H Blood Pressure 92/58 L Blood Pressure [Right Arm] 62/40 L 96/67 Pulse Oximetry 97 95 95 01/25/19 07:30 01/25/19 07:35 01/25/19 07:40 Temperature Pulse Rate 130 H 127 H 127 H Respiratory Rate 35 H 35 H 36 H Blood Pressure Blood Pressure [Right Arm] 105/71 90/61 Pulse Oximetry 95 95 95 01/25/19 07:45 01/25/19 07:50 01/25/19 07:55 Temperature Pulse Rate 133 H 131 H 133 H Respiratory Rate 39 H 28 H 38 H Blood Pressure Blood Pressure [Right Arm] 92/68 91/38 L 81/56 L Pulse Oximetry 95 95 96 01/25/19 07:59 01/25/19 08:01 01/25/19 08:13 Temperature 98.3 F 97.7 F Pulse Rate 135 H 134 H 133 H Respiratory Rate 44 H 40 H 36 H Blood Pressure 81/56 L 90/55 L Blood Pressure [Right Arm] 81/54 L Pulse Oximetry 95 Oxygen Delivery Method Room Air Const Other: Patient visibly pale and uncomfortable, though alert/oriented and able to converse easily. Patient accompanied by and mother. GI Inspection: distended, incision (well approximated laparoscopy incisions covered in dermabond. ) and obesity Palpation: guarding and tender Objective Labs Result Diagrams: 01/25/19 07:54 01/25/19 07:15 Labs: Laboratory Results - last 24 hr 01/25/19 01/25/19 01/25/19 07:15 07:15 07:15 WBC 5.6 RBC 6.45 H Hgb 19.4 H Hct 58.1 H MCV 90.1 MCH 30.1 MCHC 33.4 RDW 13.4 Plt Count 418 H Neut % (Auto) 83.5 H Lymph % (Auto) 9.5 L [place] % (Auto) 5.6 Eos % (Auto) 0.1 L Baso % (Auto) 1.3 Neut # (Auto) 4700 Lymph # (Auto) 500 L [place] # (Auto) 300 Eos # (Auto) 0 Baso # (Auto) 100 PT 14.3 H INR 1.2 APTT 30 Sodium 138 Potassium 3.8 Chloride 103 Carbon Dioxide 14 L BUN 17 Creatinine 1.20 H Estimated GFR 51.7 L BUN/Creatinine Ratio 14.2 Glucose 228 H Lactate Calcium 9.8 Total Bilirubin 1.6 H AST 27 ALT 27 Alkaline Phosphatase 60 Total Creatine Kinase 44 CK-MB (CK-2) TNP CK-MB (CK-2) Rel Index TNP Troponin I < 0.012 Total Protein 7.6 Albumin 4.4 Globulin 3.2 Albumin/Globulin Ratio 1.4 Lipase 24 01/25/19 01/25/19 07:15 07:54 WBC 4.4 L RBC 5.86 H Hgb 17.8 H Hct 52.5 H MCV 89.7 MCH 30.4 MCHC 33.8 RDW 13.2 Plt Count 376 Neut % (Auto) Lymph % (Auto) [place] % (Auto) Eos % (Auto) Baso % (Auto) Neut # (Auto) Lymph # (Auto) [place] # (Auto) Eos # (Auto) Baso # (Auto) PT INR APTT Sodium Potassium Chloride Carbon Dioxide BUN Creatinine Estimated GFR BUN/Creatinine Ratio Glucose Lactate 7.2 H* Calcium Total Bilirubin AST ALT Alkaline Phosphatase Total Creatine Kinase CK-MB (CK-2) CK-MB (CK-2) Rel Index Troponin I Total Protein Albumin Globulin Albumin/Globulin Ratio Lipase Assessment & Plan Assessment & Plan narrative: Based on this patient's presentation, the ddx includes intraabdominal bleeding, bowel injury, and severe dehydration due to nausea and vomiting after surgery. The patient is being rescusitated with IV fluids and is responding, and is stable to transport to CT scan to assess for bowel injury. The above was explained to the patient, and she was consented for diagnostic laparoscopy, possible laparotomy, and all other indicated procedures. The patient and her mother vocalized understanding. - Continue aggressive IV hydration, administered 1 u pRBCs in ED - Patient for CT scan, then transfer to OR for above evaluation - Further plan pending results
[2019-01-25] MEDS: SODIUM CHLORIDE 0.9% 1,000 ML 1000 ML IV (08:41)
[2019-01-25] MEDS: fentaNYL 100 MCG/2 ML INJ 50 MCG IV (08:47)
--- NOTE | 2019-01-25 08:47 | PC.NURSE ---
0828: Pt taken to CT with this RN and CAR WASHER. pt tolerated well. Blood completed on fluid warmer and flushed and documented per TAR. Per MD, no need for additional unit of blood due. Order for 2nd liter NS. Warmed NS infusing per order. 0847: Verbal order from Dr Islas for Fentanyl 50mcg. given. BP 130/88 HR 128, 96% RA. Pt c/o SOB and placed on 2L and tolerating well. Awaiting further orders.
[2019-01-25] MEDS: LACTATED RINGERS 1,000 ML 42 ML IV ×3 (09:00→11:51)
[2019-01-25] MEDS: CEFAZOLIN 2 GM/100 ML FROZ.PIGGY IV (09:10)
--- NOTE | 2019-01-25 09:11 | PC.NURSE ---
0900: Assisted pt to OR at 0900. Report given to OR team. Taken on cafeteria monitor.
[2019-01-25 09:33] LABS: Reflexed Lactate in 2 Hours Y
[2019-01-25] MEDS: ACETAMINOPHEN IV 1,000 MG/100 ML VIAL 400 MG IV (09:50)
[2019-01-25] MEDS: PIPERACILLIN-TAZO 3.375 GM/50 ML FROZ.PIGGY IV ×2 (10:10→18:25)
--- NOTE | 2019-01-25 10:46 | SUR.OPER ---
Supine on padded OR bed, head on pillow, arms secured on padded arm boards at <90 degrees abduction, legs uncrossed, safety belt at thigh, tape over blanket over lower legs.
[2019-01-25] MEDS: BUPIVACAINE 0.5% W/ EPI (PF) 30 ML VIAL INJ (10:53)
[2019-01-25 10:54] LABS: Hematocrit 49.1 % (36-46); Hemoglobin 16.5 g/dL (12.0-16.0); Mean Corpuscular HGB Conc 33.5 % (30-36); Mean Corpuscular Hemoglobin 30.4 PG (26-34); Mean Corpuscular Volume 90.7 fL (80-100); Platelet Count 283 X10^3/uL (150-400); Red Blood Cell Count 5.41 X10^6/uL (4.0-5.2); Red Cell Distribution Width 13.6 % (11.6-14.8)
[2019-01-25 11:05] LABS: INR 1.5 (0.9-1.3); Prothrombin Time 17.4 SECONDS (10.1-12.7)
[2019-01-25 11:08] LABS: D Dimer 978 ng/mL (<230); PTT Partial Thromboplastin Tim 30 SECONDS (26.4-36.2)
[2019-01-25 11:34] LABS: Fibrinogen 481 mg/dL (211-428)
[2019-01-25 11:46] LABS: Lactate 2HR (Lactic Acid Rflx) 5.5 mmol/L (0.7-2.1)
[2019-01-25] MEDS: diphenhydrAMINE 50 MG/ML VIAL 25 MG IV (12:20)
--- NOTE | 2019-01-25 12:21 | DI.RAD.S_ITS ---
PROCEDURE: XR CHEST 1V INDICATIONS: ET tube TECHNIQUE: One view of the chest was acquired. COMPARISON: [facility], CT, CT ABDOMEN PELVIS W CON, 01/25/2019, 8:26. [facility], CR, XR CHEST 1V, 01/25/2019, 7:11. FINDINGS: Surgical changes and devices: There is a new endotracheal tube with the tip approximately 3.3 cm from the adama. Lungs and pleura: There are new confluent left retrocardiac opacities consistent with consolidation or atelectasis. No definite pleural effusions or pneumothorax. Mediastinum: Mediastinal contours appear unchanged. Heart size is normal. Bones and chest wall: No suspicious bony lesions. Overlying soft tissues appear unremarkable. IMPRESSION: 1. New confluent left retrocardiac opacities consistent with consolidation or atelectasis. Dictated by: Mich Urrutia M.D. on 01/25/2019 at 11:44 Approved by: Mich Urrutia M.D. on 01/25/2019 at 11:46
[2019-01-25] MEDS: PROPOFOL 1,000 MG/100 ML VIAL 33.339 MG IV ×2 (12:25→15:24)
--- NOTE | 2019-01-25 12:27 | P.OP_ITS ---
Operative Date/Time/Diagnoses Date of procedure: 01/25/19 Time of procedure: 08:00 Pre-op diagnosis: suspected bowel injury vs intraabdominal bleeding Post-op diagnosis: same Procedure & Clinicians Procedure: exploratory laparoscopy converted to exploratory laparotomy with intraoperative general surgery consult, end to end small bowel reanastomosis after resection of bowel injury, and open wound packing. Same procedure as scheduled: No Indications: Septic shock Surgeon: Re Islas Pulling Unit Operator: July Gonzalez Anesthesia Type: General Operative Notes Findings: Significant amount of intraabdominal stool and fluid. Closure Type: not applicable Specimen(s): none sent Applied: catheter and drain(s) Blood products transfused: packed red blood cells (continued 1u pRBCs from ED) Procedure in detail: The patient's prior infraumbilical port site was used for directly visualized entry into the abdomen with a 10mm trocar. On insertion of the laproscope, a significant amount of stool was visualized, and an intraoperative consult to general surgery was placed. Please see Dr. Aguirre's note for further details. Post-operative Condition: critical Disposition: ICU
--- NOTE | 2019-01-25 12:28 | P.CONS_ITS ---
History of Present Illness Consult details Date Patient Seen: 01/25/19 Time Patient Seen: 13:07 Chief complaint: surgery yesterday/throwing up Reason for consult: septic shock Requesting provider: Re Islas Narrative: Sophie Verdin is a 33-year-old female with history of chronic low back pain, and possible PCOS who presented to the emergency room today with abdominal pain and emesis. History from the patient unable to be obtained as she is currently sedated and intubated so history is largely gathered from ernesto tavarez notes and discussion. She is status post laparoscopic left salpingoophorectomy on the morning of 01/24 for a large dermoid cyst. Intraoperatively there were no donated complications. According to notes, she reported right shoulder pain last night as well as nausea and vomiting with inability to tolerate fluids or medications. She had increasing abdominal pain and decided to come to the emergency room this morning. In the emergency room, she was tachycardic, tachypneic, hypotensive and she had a distended and severely tender abdomen. Her initial labs were notable for a normal WBC count, a hemoglobin of 19 from baseline of around 13 per prior labs, INR 1.5, creatinine of 1.2 from baseline of 0.6, total bilirubin of 1.6, and a lactate of 7 which has improved slightly with IVF. Initial concern was for possible postoperative bleeding, she was given 1 unit of PRBCs. The blood bank has called to say that she may have a possible reaction, however it may just be cold agglutinins. CT scan of the abdomen was done which showed nonspecific small bowel wall thickening and a small amount of free fluid in the pelvis as well as a small amount of free air. In the operating room she was noted to have a small-bowel perforation, and underwent a short segment small-bowel resection. There was stool in the abdomen, her abdomen was left open and she currently has a wound VAC and 2 drains which are hooked up to continuous suction. Upon my evaluation the patient was sedated on propofol, intubated on minimal vent settings and saturating well. She received a total of 4 L and a 5th L of fluid was running, she remained hypotensive. PICC line is currently pending so patient to be started on peripheral pressors until PICC line is placed. She did have mildly elevated peak and plateau pressures, this improved slightly with decreased volume. Blood gas is pending. Her chest x-ray was unremarkable. Medicine was consulted for assistance with management of septic shock and ventilator management. [facility] Medical History Vaginal delivery (Acute) Surgical History Status post tonsillectomy and adenoidectomy Social History household members: spouse Smoking Status: Never smoker second hand exposure: No alcohol intake: current substance use type: does not use Meds Home Medications and Allergies Home Medications Medication Instructions Recorded Confirmed Type pseudoephedrine HCl 30 mg PO Q6HP PRN #0 11/23/15 01/22/19 History magnesium oxide 500 mg PO BEDTIME #0 05/02/17 01/24/19 History multivitamin [Multiple Vitamins] 1 tab PO DAILY #0 05/02/17 01/24/19 History cetirizine 10 mg PO DAILY PRN #0 05/28/17 01/24/19 History albuterol sulfate [Proventil HFA] 2 puff INH Q4H PRN 01/08/19 01/22/19 History clonazepam 0.5 - 1 mg PO DAILY PRN 01/08/19 01/24/19 History desog-e.estradiol/e.estradiol 1 tab PO QPM 01/08/19 01/24/19 History [Kariva (28)] gabapentin [Neurontin] 300 mg PO BEDTIME 01/08/19 01/24/19 History methocarbamol 500 - 1,000 mg PO DAILY PRN 01/08/19 01/24/19 History sertraline 50 mg PO QPM 01/08/19 01/24/19 History oxycodone 5 mg tablet 5 mg PO Q4-6H PRN #40 tab 01/11/19 01/24/19 Rx ondansetron 4 mg PO Q8H #30 each 01/24/19 Rx oxycodone 5 mg PO Q6H PRN #5 tab 01/24/19 Rx Allergies Allergy/AdvReac Type Severity Reaction Status Date / Time adhesive [ADHESIVE] Allergy Mild Rash Verified 01/10/19 13:45 hydrocodone [From NORCO] AdvReac Intermediate MADE ME Verified 01/10/19 13:45 FEEL WIRED. I COULDN'T SLEEP. NOT EFFECTIVE Review of Systems Review of Systems ROS Unobtainable: due to endotracheal tube Exam Vital Signs (past 8 hours): - 01/25/19 07:11 01/25/19 07:23 01/25/19 07:26 Temperature 95.8 F L Pulse Rate 145 H 142 H 130 H Respiratory Rate 30 H 45 H 33 H Blood Pressure 92/58 L Blood Pressure [Right Arm] 62/40 L 96/67 Pulse Oximetry 97 95 95 01/25/19 07:30 01/25/19 07:35 01/25/19 07:40 Temperature Pulse Rate 130 H 127 H 127 H Respiratory Rate 35 H 35 H 36 H Blood Pressure Blood Pressure [Right Arm] 105/71 90/61 Pulse Oximetry 95 95 95 01/25/19 07:45 01/25/19 07:50 01/25/19 07:55 Temperature Pulse Rate 133 H 131 H 133 H Respiratory Rate 39 H 28 H 38 H Blood Pressure Blood Pressure [Right Arm] 92/68 91/38 L 81/56 L Pulse Oximetry 95 95 96 01/25/19 07:59 01/25/19 08:01 01/25/19 08:13 Temperature 98.3 F 97.7 F Pulse Rate 135 H 134 H 133 H Respiratory Rate 44 H 40 H 36 H Blood Pressure 81/56 L 90/55 L Blood Pressure [Right Arm] 81/54 L Pulse Oximetry 95 01/25/19 08:35 01/25/19 08:40 01/25/19 08:45 Temperature Pulse Rate 130 H Respiratory Rate 28 H Blood Pressure Blood Pressure [Right Arm] 110/68 130/88 130/88 Pulse Oximetry 96 01/25/19 08:50 01/25/19 09:00 Temperature Pulse Rate 126 H 127 H Respiratory Rate 34 H 20 Blood Pressure 101/66 Blood Pressure [Right Arm] 101/71 Pulse Oximetry 95 96 Oxygen Delivery Method Nasal Cannula Oxygen Flow Rate 2 Narrative Exam Narrative: GENERAL APPEARANCE: Obese female, slightly pale, intubated and sedated SKIN: Inspection of the skin reveals no rashes, ulcerations or petechiae. HEENT: ETT in place, thin white secretions upon suction, oral mucosa appears dry. NECK: Supple and symmetric. There was no thyroid enlargement, and no tenderness, or masses were felt. CHEST: Normal AP diameter and normal contour without any kyphoscoliosis. LUNGS: Auscultation of the lungs anteriorly revealed no wheezes, rhonchi, or rales. CARDIOVASCULAR: Tachycardic and regular without murmurs rubs or gallops. ABDOMEN: open abdomen with wound VAC and 2 drains with serosanguineous output. Dressings c/d/i. MUSCULOSKELETAL: There were no effusions noted. EXTREMITIES: No cyanosis, clubbing or edema. NEUROLOGIC: Sedated, breathing over set breathing rate. Objective Imaging Chest x-ray: Radiologist's impression: 1. New confluent left retrocardiac opacities consistent with consolidation or atelectasis. CT scan - abdomen: Radiologist's impression: 1. Small to moderate amount of pneumoperitoneum and free fluid. Although the findings are likely related to patient's recent arthroscopic surgery, there is a slightly hyperdense component of the free fluid in the right lower quadrant. Associated hemorrhage cannot be excluded although no discrete focus of active extravasation is identified. Recommend correlation clinically and a short term followup repeat study if indicated. 2. Segmental wall thickening involving small bowel loops in the left upper quadrant and the ascending colon are nonspecific. The findings may reflect a mild infectious or inflammatory process or reactive changes related to recent surgery. Labs Result Diagrams: 01/25/19 10:15 01/25/19 07:15 Labs: Laboratory Results - last 24 hr 01/25/19 01/25/19 01/25/19 07:15 07:15 07:15 WBC 5.6 RBC 6.45 H Hgb 19.4 H Hct 58.1 H MCV 90.1 MCH 30.1 MCHC 33.4 RDW 13.4 Plt Count 418 H Neut % (Auto) 83.5 H Lymph % (Auto) 9.5 L [place] % (Auto) 5.6 Eos % (Auto) 0.1 L Baso % (Auto) 1.3 Neut # (Auto) 4700 Lymph # (Auto) 500 L [place] # (Auto) 300 Eos # (Auto) 0 Baso # (Auto) 100 PT 14.3 H INR 1.2 APTT 30 Fibrinogen D-Dimer Sodium 138 Potassium 3.8 Chloride 103 Carbon Dioxide 14 L BUN 17 Creatinine 1.20 H Estimated GFR 51.7 L BUN/Creatinine Ratio 14.2 Glucose 228 H Lactate Calcium 9.8 Total Bilirubin 1.6 H AST 27 ALT 27 Alkaline Phosphatase 60 Total Creatine Kinase 44 CK-MB (CK-2) TNP CK-MB (CK-2) Rel Index TNP Troponin I < 0.012 Total Protein 7.6 Albumin 4.4 Globulin 3.2 Albumin/Globulin Ratio 1.4 Lipase 24 Blood Type Antibody Screen Crossmatch 01/25/19 01/25/19 01/25/19 07:15 07:15 07:54 WBC 4.4 L RBC 5.86 H Hgb 17.8 H Hct 52.5 H MCV 89.7 MCH 30.4 MCHC 33.8 RDW 13.2 Plt Count 376 Neut % (Auto) Lymph % (Auto) [place] % (Auto) Eos % (Auto) Baso % (Auto) Neut # (Auto) Lymph # (Auto) [place] # (Auto) Eos # (Auto) Baso # (Auto) PT INR APTT Fibrinogen D-Dimer Sodium Potassium Chloride Carbon Dioxide BUN Creatinine Estimated GFR BUN/Creatinine Ratio Glucose Lactate 7.2 H* Calcium Total Bilirubin AST ALT Alkaline Phosphatase Total Creatine Kinase CK-MB (CK-2) CK-MB (CK-2) Rel Index Troponin I Total Protein Albumin Globulin Albumin/Globulin Ratio Lipase Blood Type O Positive Antibody Screen Negative Crossmatch See Detail 01/25/19 01/25/19 01/25/19 10:15 10:15 10:15 WBC 3.0 L RBC 5.41 H Hgb 16.5 H Hct 49.1 H MCV 90.7 MCH 30.4 MCHC 33.5 RDW 13.6 Plt Count 283 Neut % (Auto) Lymph % (Auto) [place] % (Auto) Eos % (Auto) Baso % (Auto) Neut # (Auto) Lymph # (Auto) [place] # (Auto) Eos # (Auto) Baso # (Auto) PT 17.4 H INR 1.5 H APTT 30 Fibrinogen 481 H D-Dimer 978 H Sodium Potassium Chloride Carbon Dioxide BUN Creatinine Estimated GFR BUN/Creatinine Ratio Glucose Lactate 5.5 H* Calcium Total Bilirubin AST ALT Alkaline Phosphatase Total Creatine Kinase CK-MB (CK-2) CK-MB (CK-2) Rel Index Troponin I Total Protein Albumin Globulin Albumin/Globulin Ratio Lipase Blood Type Antibody Screen Crossmatch Assessment & Plan Assessment & Plan narrative: Sophie Verdin is a 33-year-old female with history of chronic low back pain, and possible PCOS who presented to the emergency room today with abdominal pain and emesis. She is status post laparoscopic left salpingoophorectomy on the morning of 01/24 for a large dermoid cyst, she underwent a diagnostic laparoscopy which revealed a small bowel perforation. She is now status post short-segment small bowel resection and admitted to the ICU. Medicine is consulted for assistance with management for septic shock and ventilator management. 1. Septic shock, present on admission -secondary to bowel perforation and subsequent stool spillage into her abdomen. Patient was given antibiotics and was fluid resuscitated but her pressures remain low. She will start on per ipheral Levophed until a PICC line is placed. SOFA score is 6. -continue to wean from Levophed as able. -monitor drain output -chest x-ray read as left retrocardiac infiltrate versus atelectasis, likely atelectasis upon my interpretation. However patient was urgently taken to operating room and had vomited prior. Continue to monitor for aspiration and patient's current antibiotics are covering any aspiration event. -continue Zosyn -continue fluid resuscitation, monitor drain output. -continue mechanical ventilation until improved hemodynamically. Continue propofol and prn morphine. -respiratory therapy eval and treat -continue to follow lactate 2. Acute renal failure, present on admission, active - Baseline cr 0.6, on admission 1.2 from septic shock and hypovolemic. - continue care as noted above. 3. Acute hypoxemic respiratory failure secondary to sepsis, ABG on vent showing PF ratio of 202. Will continue to treat underling sepsis and optimize ventilatory status until hemodynamically improved. Possible aspiration given emesis and then subsequent intubation as well, however patient is on zosyn at this time for intra-abdominal source which will cover aspiration event. - repeat blood gas this evening, titrate settings as necessary. - continue management of sepsis as noted above. 4. Anion gap metabolic acidosis, present on admission, active - secondary to s eptic shock and elevated lactate. Continue management as noted above. Her gas showed a slight repspiratory component to her acidosis as well 5. Elevated glucose - may be reactive secondary to sepsis however given possible PCOS and obesity diabetes is a possibilty. - A1c will be unreliable given recent transfusion - FS q6 hr with corrective sliding scale - recommend outpatient A1c after approx. 90 days given transfusion. 6. Dehydration, acute, present on admission - secondary to nausea / vomiting and intra-abdominal spillage. Hg on admission was 19 (baseline of around 13). She will need continued IVF for management of sepsis as well as replacement of her abdominal losses given drains. 7. S/p Small bowel resection - complication of laparoscopic salpingoophorectomy. - Plan for return to the operating room on 01/27 per general surgery - monitor drain output and replete as necessary. I spent 35 minutes providing critical care management this patient. This excludes time spent in performing separately billed procedures. Medicine will continue to follow this patient.
[2019-01-25] MEDS: LACTATED RINGERS 1,000 ML 1000 ML IV ×2 (12:30→19:27)
--- NOTE | 2019-01-25 13:13 | SUR.PHASEI ---
Pt transported to room 103 via bed. Pt bagged by Dr. Calloway, RT in room upon arrival, attached to vent with vent settings- see anasthesia work sheet. BP low on arrival treated with fluids and meds per Dr. Calloway. Abdominal wound open with clear covering C/D/I. Three VIPUL in place. Byers draining yuniel clear urine. Both Dr. Aguirre and Dr. Calloway at bedside. Care assumed by Kristal DUNLAP.
[2019-01-25] MEDS: NOREPINEPHRINE 4 MG in DEXTROSE 5% IN WATER 250 ML 7.62 ML IV (13:36)
[2019-01-25 13:41] LABS: Fractionated Inspired Oxygen 35; HCO3 ABG 16 mmol/L (22-26); Oxygen Saturation ABG 91 % (95-100); PCO2 ABG 36.4 mmHg (35-45); PO2 ABG 71 mmHg (80-100); TCO2 ABG 17 mmol/L (21-31); pH ABG 7.26 (7.35-7.45)
[2019-01-25] MEDS: FLUCONAZOLE 400 MG/200 ML PIGGYBACK 100 MG IV (13:45)
[2019-01-25] MEDS: LACTATED RINGERS 1,000 ML 125 ML IV (13:58)
--- NOTE | 2019-01-25 14:28 | DI.RAD.S_ITS ---
PROCEDURE: XR CHEST FOR PICC 1V INDICATIONS: PICC placement TECHNIQUE: One limited view of the chest was acquired. COMPARISON: [facility], , XR CHEST 1V, 01/25/2019, 12:21. FINDINGS: Surgical changes and devices: There is a left upper extremity PICC line with the tip extending into the proximal right atrium. Lungs and pleura: The lung apices are incompletely included on the current study. The visualized lung bases demonstrate confluent left retrocardiac opacities and indistinct peripheral right basilar opacities Mediastinum: Mediastinal contours appear normal. Heart size is normal. Bones and chest wall: No suspicious bony lesions. Overlying soft tissues appear unremarkable. IMPRESSION: 1. PICC line tip extends into the right atrium. 2. Persistent left retrocardiac and peripheral right basilar opacities consistent with consolidation, atelectasis or aspiration. 3. Lung apices not included on the current study. Dictated by: Mich Urrutia M.D. on 01/25/2019 at 14:03 Approved by: Mich Urrutia M.D. on 01/25/2019 at 14:19
[2019-01-25] MEDS: PANTOPRAZOLE 40 MG VIAL IV (14:53)
--- NOTE | 2019-01-25 15:17 | P.OP_ITS ---
Operative Date/Time/Diagnoses Date of procedure: 01/25/19 Time of procedure: 11:39 Pre-op diagnosis: Sepsis. Post-op diagnosis: same (Sepsis secondary to small-bowel transsection with leakage of succus) Procedure & Clinicians Procedure: Open exploration with resection of transected ends of small bowel and primary small bowel to small bowel anastomosis. Abdomen packed open due to degree of spillage/soiling Same procedure as scheduled: No (Initial operation was begun by Dr. Villanueva and I was called in to assist) Indications: Septic shock with elevated lactate, hypotension, tachycardia, peritoneal findings on examination and fluid within the abdomen on CT Surgeon: Dayo Aguirre Student Accounts Coordinator: Re Islas Click Yes if Unassisted: No Anesthesia Type: General Operative Notes Findings: Transected jejunum with extensive spillage Closure Type: non-primary (Not closed) Specimen(s): none sent Prosthetic devices, grafts, tissues, transplants, or devices: None Applied: catheter (Byers), drain(s) and other (Endotracheal tube) Estimated Blood Loss (mL): 10 Blood products transfused: none Procedure in detail: The patient was asleep prepped draped with laparoscopic incision at the umbilicus when I arrived. I'd been called because of a finding of stool within the abdomen. Vertical incision was made from the umbilicus to the suprapubic area and carried down into the abdomen proper. We encountered a large amount of succus colored fluid which was suctioned as we went. I began to deliver the intestine into the wound and identified a complete transection of the small bowel under the omentum. We placed stitches in the end of it to close both ends and then continued to explore for any other injuries. I extended the incision above the umbilicus to allow exploration to be more complete. The small bowel was run and there were no other injuries though there was a great deal of exudate on the surface of the small intestine. The sigmoid and cecum appeared to be intact. There were no other apparent injuries and I felt that because of the location of the patient's prior operation that any injury of the colon elsewhere or of the stomach was highly unlikely. I suctioned a very large amount of fluid not only from the pelvis but also from both upper quadrants. There was a great deal of green fluid above the liver and spleen. There was also fluid between loops of small bowel. I dissected between all of this and copiously irrigated the abdomen. There was a fair amount of vegetable material which I attempted to remove. I then resected the ends of the small bowel back to viable tissue with sharp dissection and performed an end-to-end 2 layer anastomosis with an inner running layer of 3 0 Vicryl and an outer seromuscular layer of silk. This was done by extending the incision along the anti mesenteric border to make the anastomosis wider. I tested it and there was a small amount of leak on the anti mesenteric border which I corrected with additional suture. Retested for leak and it appeared to be patent and allow fluid and gas to go across without any further leakage. I irrigated the entire abdomen and pelvis once again and removed all the fluid that I could. Because of the extensive amount of spillage and the patient's profound sepsis I decided not to close her abdomen by rather to place a sterile plastic drape over the intestine with holes in it to allow for fluid to leak through into 5 lap pads which are counted and then 2 drains placed within that followed by a Betadine impregnated sticky drape(ioban). An additional drain was placed in the pelvis of a flat Hans-Villalpando type prior to placing plastic over the intestine. Suction was applied and it appeared to be adequate. There had been very little blood loss during the procedure. Patient's blood pressure required pharmacologic support through the operation. She appeared to make good urine however. Complications: none Post-operative Condition: critical Disposition: ICU (On a ventilator)
--- NOTE | 2019-01-25 15:25 | PC.NURSE ---
PT ACCEPTED TO ROOM 103, ON MECHANICAL VENTILATION - HYPOTENSIVE AND REQUIRED IV NORPINEPHRINE- ON PROPOFOL, AND IV FLUIDS- VIPUL DRAINS X 3, MOELLER PATENT
[2019-01-25] MEDS: ENOXAPARIN 40 MG/0.4 ML SYRINGE SUBCUT (15:34)
[2019-01-25] MEDS: LACTATED RINGERS 1,000 ML 500 ML IV (16:11)
[2019-01-25] MEDS: MORPHINE 2 MG/ML INJ IV ×2 (16:34→18:24)
[2019-01-25] MEDS: ACETAMINOPHEN 650 MG SUPP PR (17:41)
[2019-01-25] MEDS: INSULIN ASPART 100 UNIT/ML INSULN PEN SUBCUT (17:55)
[2019-01-25] MEDS: PROPOFOL 1,000 MG/100 ML VIAL 30.005 MG IV ×2 (18:36→21:45)
[2019-01-25 18:37] LABS: Basophils Absolute Auto 0 /uL (0-100); Basophils Percent Auto 0.1 % (0-2); Eosinophils Absolute Auto 0 /uL (0-450); Eosinophils Percent Auto 0.1 % (2-4); Hematocrit 49.1 % (36-46); Hemoglobin 16.7 g/dL (12.0-16.0); Lymphocytes Absolute Auto 800 /uL (1100-4500); Lymphocytes Percent Auto 21.4 % (25-40); Mean Corpuscular Hemoglobin 30.3 PG (26-34); Mean Corpuscular Volume 89.2 fL (80-100); Monocytes Absolute Auto 300 /uL (0-900); Monocytes Percent Auto 6.4 % (3-14); Neutrophils Absolute Auto 2800 /uL (1500-7000); Platelet Count 265 X10^3/uL (150-400); Red Cell Distribution Width 13.3 % (11.6-14.8)
[2019-01-25 18:39] LABS: Add Manual Diff / Slide Review SLIDE REVIEW
[2019-01-25 18:42] LABS: Albumin 2.1 g/dL (3.5-5.0); Alkaline Phosphatase 28 U/L (38-126); Aspartate Aminotransferase 22 IU/L (14-36); Bilirubin Total 1.6 mg/dL (0.2-1.3); Blood Urea Nitrogen 18 mg/dL (7-17); Calcium 7.6 mg/dL (8.4-10.2); Carbon Dioxide 17 mmol/L (22-32); Chloride 108 mmol/L (98-107); Estimated Glomerular Filt Rate > 60.0 mL/min (>60); Globulin 2.1 g/dL (1.7-4.1); Glucose 161 mg/dL (70-100); HEMOLYSIS 16 (0-50); Potassium 3.7 mmol/L (3.4-5.1); Sodium 134 mmol/L (137-145); Total Protein 4.2 g/dL (6.3-8.2)
[2019-01-25 18:50] LABS: Alanine Aminotransferase 18 IU/L (<35)
[2019-01-25 19:01] LABS: Lactate (Lactic Acid) 4.3 mmol/L (0.7-2.1)
[2019-01-25 19:15] LABS: RBC Morphology Normal Morphology
[2019-01-25] MEDS: LACTATED RINGERS 1,000 ML 175 ML IV (19:28)
[2019-01-25] MEDS: NOREPINEPHRINE 4 MG in DEXTROSE 5% IN WATER 250 ML 76.2 ML IV (19:37)
[2019-01-25 19:45] LABS: HCO3 ABG 16 mmol/L (22-26); Oxygen Saturation ABG 93 % (95-100); PCO2 ABG 34.8 mmHg (35-45); PO2 ABG 77 mmHg (80-100); TCO2 ABG 17 mmol/L (21-31); pH ABG 7.28 (7.35-7.45)
[2019-01-25 19:46] LABS: Fractionated Inspired Oxygen 35
[2019-01-25] MEDS: VASOPRESSIN 20 UNIT in SODIUM CHLORIDE 0.9% 100 ML 6.06 ML IV (19:54)
[2019-01-25 20:21] LABS: Reflexed Lactate in 2 Hours Y
[2019-01-25 20:55] LABS: Magnesium 1.2 mg/dL (1.6-2.3)
[2019-01-25 21:18] LABS: Lactate 2HR (Lactic Acid Rflx) 3.8 mmol/L (0.7-2.1)
[2019-01-25 21:24] LABS: Hematocrit 49.2 % (36-46); Hemoglobin 16.9 g/dL (12.0-16.0); Mean Corpuscular HGB Conc 34.3 % (30-36); Mean Corpuscular Hemoglobin 30.7 PG (26-34); Mean Corpuscular Volume 89.3 fL (80-100); Platelet Count 232 X10^3/uL (150-400); Red Blood Cell Count 5.51 X10^6/uL (4.0-5.2); Red Cell Distribution Width 13.3 % (11.6-14.8); White Blood Cell Count 4.9 X10^3/uL (4.5-11.0)
[2019-01-25 21:31] LABS: Blood Urea Nitrogen 18 mg/dL (7-17); Calcium 7.4 mg/dL (8.4-10.2); Carbon Dioxide 18 mmol/L (22-32); Chloride 106 mmol/L (98-107); Estimated Glomerular Filt Rate > 60.0 mL/min (>60); Glucose 162 mg/dL (70-100); HEMOLYSIS 37 (0-50); Potassium 4.1 mmol/L (3.4-5.1); Sodium 133 mmol/L (137-145)
--- NOTE | 2019-01-25 21:44 | PM.EVENT ---
Event Note Date Patient Seen: 01/25/19 Time Patient Seen: 21:15 Event Note: Patient's chart reviewed. Patient was seen at bedside. s/p laparoscopic left salpingo-oophrectomy for large dermoid cyst. 01/24 developed right shoulder pain, nausea, vomiting, and inability to tolerate oral intake 01/25 presented to ED tachycardic, tachypneic, and hypotensive. Abdomen noted as tender and distended. - Patient was taken to the OR. - She was found to have small-bowel perforation, s/p resection Lab trend since admission reviewed. - Add on Mag to 01/25 1810 lab - No labs until am scheduled. STAT labs at 2100 - CBC, BMP, lactate - Spiked a low grade temp at 2006, 101.1F (non-pharmacological interventions, passive cooling), ie received rectal tylenol 650 mg at 1741 01/25 2115, patient seen at bedside and plan of care discussed w/ RN VS BP 92/46 (on levophed at 10 mcg/min) HR 151-153 RR 25-26 (ventilated) SpO2 95% (FiO2 35%) GCS E(4) V(NT-intubated) M(NT - sedated) RASS -1 Sedated with propofol (at 50 mcg/kg/min). Opens eye spontaneously to light tactile stimuli. Restrained Intubated / Ventilated. Rate 12 TV 450 Peep 5 FiO2 35%. Spontaneous respirations, overbreathing the vent. Does not appear to be in an overt respiratory distress Auscultated (anterior chest only). RUL - clear RML - diminished RLL - crackles CASSI - clear LLL - diminished Pupils reactive. Opens spontaneously. No ocular edema or scleral icterus. No OGT present ST on tele monitor in the room, rates 151-153. S1S2. No murmur. No JVD. Abdomen remarkable for central obesity. Soft. Iqip-sy-xiqwsury distention. +BS (hypoactive in RLQ, LUQ, and LLQ) Mid-line abdominal incision, partially open. Appears to have abdominal packing. Site covered with occlusive dressing. Mild drainage present. x2 VIPUL drains present, attached to suction. Upper and lower extremity bilateral edema, non-pitting No mottling Folley catheter present, to DD (it was reported that FC was placed in ED - Add on mag (Mg 1.2). Give 4 mg MgSO4 IV. - STAT 2100 labs (drawn at 2114) reviewed wbc 4.9 rbc 5.51 hgb 16.9 hct 49.2 plt 232 Na 133 k 4.1 Cl 106 CO2 18 BUN 18 Cr 0.9 Glu 162 - Cr improved, (1.2 -. 0.9, baseline 0.6), will give toradol 30 mg x1 for febrile state and suspected pain / discomfort - Change rectal tylenol dosing to from Q6H to Q4H - Most recent lactate ordered and lactate trend reviewed... 7.2 (714) -> 5.5 (1015) -> (4.3 (1809) -> 3.8 (2099) - Continue trending lactate Q3H until WNL, next draw on 01/26 at 0030 - Continue IVF hydration (LR at 175 ml/hr) - Next lab 01/26 30 - CBC, Renal Panel, Mg, lactate, ionized calcium Patient's condition is guarded, but improving, will monitor closely 0020 seen at bedside Discussed with RN patient care Increasing Vasopressin from 0.02 to 0.03 Would like to avoid upward titration of Levophed of possible, goal SBP > 100 Hourly UO monitoring Patient able to reports that she is in pain, will give 2 mg morphine now On propofol, goal sedation RASS to -1 to -2 0155 checked on patient will give 1L NS bolus 0400 checked on patient Continues to be on Levophed 10 mcg, vasopressin 0.03, and propofol 50 mcg SBP 113 mg, maintaining. discussed about titrating Levophed downward 1-2 mcg at this time OG tube has been placed in she had 350 mls out HR improved 130-135 RR 22-24, no titration on FiO2 UO of 350 since 2299, approximately 40 ml/hr, adequate checked on patient multiple times again up to 7a BP remains stable, titrating levophed downward, weaned to 3 mcg by 7 am HR elevated 140-150 range, I'm being told patient c/o pain / restless / more awake this am, encouraged RN to give morphine to abril pain Ok to increase propofol, goal RASS -1 to -2 Am labs reviewed, continues to have downward trending sodium, will change IVF to NS at 150
[2019-01-25] MEDS: KETOROLAC 30 MG/ML VIAL IV (21:53)
[2019-01-25] MEDS: MAGNESIUM SULFATE 4 GM/100 ML PIGGYBACK IV (22:00)
--- NOTE | 2019-01-25 22:27 | PC.NURSE ---
Pt. remain on vent support with sats in the mid 90's, lungs CTA. Pt. also on vasopressin at 0.02unit/min and Norepi at 10mcg/min. Pt. also received a total of 2L LR boluses. Pt. remains tachycardic currently in the 150's, T-max of 101.1 temporal. pt. received TN tylenol and toradol IV. Hospitalist came to bedside and assess pt's status and labs ordered, Mg+ ordered and currently infusing. BT's absent, Right VIPUL with 5 ml serosanguinous output. Left VIPUL with same amt. as previous shift. Midline abd. incision with drsg. intact. Byers with 300 ml. dark yuniel output. Cont. to monitor and treat.
[2019-01-25 22:57] LABS: Neutrophils Absolute Manual 2940 /uL (3000-5900); Total Cells Counted 100
[2019-01-25 22:58] LABS: Nucleated Red Blood Cells 1 #/Diff; RBC Morphology Normal Morphology
[2019-01-26] VITALS (59 sets, daily range): BP systolic 86–121; BP diastolic 42–79; PULSE 131–153; RESP 14–30; TEMP 37.1–38.4; O2SAT 91–97
[2019-01-26] MEDS: MORPHINE 2 MG/ML INJ IV ×12 (00:40→20:25)
[2019-01-26 00:50] LABS: Hematocrit 51.4 % (36-46); Hemoglobin 17.2 g/dL (12.0-16.0); Mean Corpuscular HGB Conc 33.5 % (30-36); Mean Corpuscular Hemoglobin 29.9 PG (26-34); Mean Corpuscular Volume 89.2 fL (80-100); Platelet Count 254 X10^3/uL (150-400); Red Blood Cell Count 5.76 X10^6/uL (4.0-5.2); Red Cell Distribution Width 13.3 % (11.6-14.8); White Blood Cell Count 6.1 X10^3/uL (4.5-11.0)
--- NOTE | 2019-01-26 00:51 | PC.NURSE ---
Addendum entered by Karl Ann R.N. 01/26/19 07:02: 0645: Norepinephrine drip decreased to 3mcg/min per KIYA Dwyer Addendum entered by Karl Ann R.N. 01/26/19 07:00: 0615: Portable CXR done. Addendum entered by Karl Ann R.N. 01/26/19 07:00: 0550: Norepinephrine drip decreased to 5mcg/min. Addendum entered by Karl Ann R.N. 01/26/19 06:59: 0545: RT here to draw ABG. Addendum entered by Karl Ann R.N. 01/26/19 05:27: 0500: Lab here to draw morning labs. Addendum entered by Karl Ann R.N. 01/26/19 05:24: 0445: Norepinepherin drep rate decreased to 8mcg/min = 30.5cc/hr. Addendum entered by Karl Ann R.N. 01/26/19 05:17: 0330: OG tube placed. Pt tolerated well. 300cc green secretions returned. Tube to low suction. Morphine 2mg IV given prior to tube insertion. Addendum entered by Karl Ann R.N. 01/26/19 05:16: 0240: Lab here to draw lactate. Addendum entered by Karl Ann R.N. 01/26/19 05:15: 0210: Dr. Aguirre called to get update on pt. No new orders given. Addendum entered by Karl Ann R.N. 01/26/19 04:54: 0100: Pt opens eyes, able to communicate by nodding head. Turned with Poonam bed rotation. Original Note: Quality Improvement Coordinator (Rn) Note: 2329: Current blood pressure reading from 2327 is 84/52 with map 64. KIYA Dwyer notified. Pt remains on Propofol drip at 50mcg/kg/min = 33.3cc/hr. Vasopressin drip in infusing at 0.02u/m = 6ml/hr. Norepinepherine drip is infusing at 10mcg/min = 38cc/hr. PICC in place in lt upper arm. PIVs in rt hand and lt AC are in place. Byers catheter patent, with dark yuniel urine. Urine meter placed at this time. VIPUL drain in rt side of abdominal wound intact and compressed. Wound drains on lt side of wound intact and to low continuous wall suction. Current ventilator settings: TV 450, rate 14, FIO2 35%. SCDs on. 2344: B/P cuff re-placed on rt arm. Magnesium rider finished. 0010: KIYA Dwyer at bedside. Vasopressin rate changed as ordered to 0.3u/m = 9cc/hr at 0007. CBG 150 = no insulin coverage.
[2019-01-26 01:00] LABS: Lactate (Lactic Acid) 3.8 mmol/L (0.7-2.1)
[2019-01-26 01:01] LABS: Albumin 2.6 g/dL (3.5-5.0); Blood Urea Nitrogen 18 mg/dL (7-17); Calcium 7.9 mg/dL (8.4-10.2); Carbon Dioxide 18 mmol/L (22-32); Chloride 105 mmol/L (98-107); Estimated Glomerular Filt Rate > 60.0 mL/min (>60); Glucose 163 mg/dL (70-100); HEMOLYSIS 29 (0-50); Magnesium 2.6 mg/dL (1.6-2.3); Phosphorous 3.8 mg/dL (2.5-4.5); Potassium 4.2 mmol/L (3.4-5.1); Sodium 132 mmol/L (137-145)
[2019-01-26] MEDS: PROPOFOL 1,000 MG/100 ML VIAL 33.299 MG IV ×2 (02:00→04:31)
[2019-01-26] MEDS: PIPERACILLIN-TAZO 3.375 GM/50 ML FROZ.PIGGY IV ×4 (02:08→19:04)
[2019-01-26] MEDS: SODIUM CHLORIDE 0.9% 1,000 ML 1000 ML IV (02:10)
[2019-01-26 02:34] LABS: Reflexed Lactate in 2 Hours Y
[2019-01-26 02:58] LABS: Lactate 2HR (Lactic Acid Rflx) 3.4 mmol/L (0.7-2.1)
[2019-01-26] MEDS: LACTATED RINGERS 1,000 ML 175 ML IV (03:36)
[2019-01-26] MEDS: NOREPINEPHRINE 4 MG in DEXTROSE 5% IN WATER 250 ML 38.1 ML IV (03:37)
[2019-01-26 05:10] LABS: Neutrophils Absolute Manual 3294 /uL (3000-5900); Total Cells Counted 100
[2019-01-26 05:11] LABS: RBC Morphology Normal Morphology
[2019-01-26 05:34] LABS: Lactate (Lactic Acid) 3.8 mmol/L (0.7-2.1)
[2019-01-26 05:36] LABS: Alanine Aminotransferase 15 IU/L (<35); Albumin 2.5 g/dL (3.5-5.0); Alkaline Phosphatase 40 U/L (38-126); Aspartate Aminotransferase 27 IU/L (14-36); BUN Creatinine Ratio 17.8 (6-22); Bilirubin Total 1.6 mg/dL (0.2-1.3); Blood Urea Nitrogen 16 mg/dL (7-17); Calcium 7.6 mg/dL (8.4-10.2); Carbon Dioxide 19 mmol/L (22-32); Chloride 104 mmol/L (98-107); Estimated Glomerular Filt Rate > 60.0 mL/min (>60); Globulin 2.6 g/dL (1.7-4.1); Glucose 157 mg/dL (70-100); HEMOLYSIS 22 (0-50); INR 1.9 (0.9-1.3); Magnesium 2.3 mg/dL (1.6-2.3); Phosphorous 3.6 mg/dL (2.5-4.5); Potassium 4.1 mmol/L (3.4-5.1); Prothrombin Time 22.2 SECONDS (10.1-12.7); Sodium 132 mmol/L (137-145); Total Protein 5.1 g/dL (6.3-8.2)
[2019-01-26 05:38] LABS: Hematocrit 46.7 % (36-46); Hemoglobin 15.9 g/dL (12.0-16.0); Mean Corpuscular HGB Conc 34.1 % (30-36); Mean Corpuscular Hemoglobin 30.4 PG (26-34); Mean Corpuscular Volume 89.3 fL (80-100); Platelet Count 214 X10^3/uL (150-400); Red Blood Cell Count 5.23 X10^6/uL (4.0-5.2); Red Cell Distribution Width 13.4 % (11.6-14.8); White Blood Cell Count 7.3 X10^3/uL (4.5-11.0)
[2019-01-26 05:40] LABS: Add Manual Diff / Slide Review YES
--- NOTE | 2019-01-26 06:00 | DI.RAD.S_ITS ---
PROCEDURE: XR CHEST 1V INDICATIONS: intubated TECHNIQUE: One view of the chest was acquired. COMPARISON: [facility], CR, XR CHEST FOR PICC 1V, 01/25/2019, 14:33. FINDINGS: Surgical changes and devices: Endotracheal tube redemonstrated with tip approximately 3 cm from the adama. Left upper extremity PICC line has been slightly withdrawn with the tip in the superior vena cava. Nasogastric tube extends into the stomach with the tip not included on current study. Lungs and pleura: There are increased bilateral [id number]-wkvmcrni sized pleural effusions. There are persistent confluent left retrocardiac opacities consistent with consolidation or atelectasis. There also increased right basilar opacities consistent with atelectasis or consolidation. No definite pneumothorax on this supine study. Mediastinum: Mediastinal contours appear unchanged. Heart size is normal. Bones and chest wall: No suspicious bony lesions. Overlying soft tissues appear unremarkable. IMPRESSION: 1. Increased bilateral pleural effusions and bibasilar opacities consistent with consolidation or atelectasis. Dictated by: Mich Urrutia M.D. on 01/26/2019 at 7:09 Approved by: Mich Urrutia M.D. on 01/26/2019 at 7:11
[2019-01-26] MEDS: INSULIN ASPART 100 UNIT/ML INSULN PEN SUBCUT ×2 (06:12→12:04)
[2019-01-26 06:19] LABS: Fractionated Inspired Oxygen 35; HCO3 ABG 17 mmol/L (22-26); Oxygen Saturation ABG 96 % (95-100); PCO2 ABG 31.5 mmHg (35-45); PO2 ABG 84 mmHg (80-100); TCO2 ABG 18 mmol/L (21-31); pH ABG 7.35 (7.35-7.45)
[2019-01-26 07:22] LABS: Reflexed Lactate in 2 Hours Y
[2019-01-26] MEDS: MORPHINE 5 MG/ML INJ 2 MG IV (07:25)
[2019-01-26 07:29] LABS: Neutrophils Absolute Manual 5767 /uL (3000-5900); RBC Morphology Normal Morphology; Total Cells Counted 100
[2019-01-26 07:56] LABS: Lactate 2HR (Lactic Acid Rflx) 3.6 mmol/L (0.7-2.1)
[2019-01-26] MEDS: PROPOFOL 1,000 MG/100 ML VIAL 40.007 MG IV ×6 (08:00→18:56)
[2019-01-26] MEDS: SODIUM CHLORIDE 0.9% 1,000 ML 150 ML IV (08:23)
[2019-01-26 08:42] LABS: Bacteria Urine None Seen; RBC Urine None Seen (0-5/HPF)
[2019-01-26 08:45] LABS: Bilirubin Urine UA 1+ (NEGATIVE); Color Urine UA YELLOW; Glucose Urine UA NEGATIVE (Negative); Ketones Urine UA NEGATIVE (NEGATIVE); Leukocyte Esterase Urine UA NEGATIVE (NEGATIVE); Nitrite Urine UA NEGATIVE (Negative); Occult Blood Urine UA TRACE-LYSED (Negative); Protein Urine UA 1+ (Negative); Specific Gravity Urine UA >=1.030 (1.000-1.035); Urobilinogen Urine UA 0.2 E.U./dL (0.2)
[2019-01-26 08:46] LABS: Appearance Urine UA CLOUDY; pH Urine UA 5.5 (4.5-8.0)
[2019-01-26] MEDS: ENOXAPARIN 40 MG/0.4 ML SYRINGE SUBCUT (08:51)
[2019-01-26] MEDS: PANTOPRAZOLE 40 MG VIAL IV (08:51)
[2019-01-26 08:56] LABS: Amorphous Sediment Urine 4+; Culture Indicated Urine Cult Not Indicated; Ictotest Urine Negative (Negative); WBC Urine 0-1/HPF (0-5/HPF)
--- NOTE | 2019-01-26 09:58 | PM.PNPO.1 ---
Subjective Subjective Date Patient Seen: 01/26/19 Time Patient Seen: 09:59 Interval history: Patient remains on a ventilator with a propofol drip. She has been weaned off of her vasopressin and is presently on a low dose of Levophed infusion. Blood pressure has been acceptable through the night. Her urine output has been acceptable as well. Exam Vital Signs (past 8 hours): - 01/26/19 02:00 01/26/19 02:20 01/26/19 02:45 Temperature 98.8 F Pulse Rate 134 H 131 H Respiratory Rate 24 22 24 Blood Pressure 113/74 110/67 107/69 Pulse Oximetry 96 96 01/26/19 03:00 01/26/19 03:15 01/26/19 03:30 Temperature Pulse Rate 131 H 134 H 136 H Respiratory Rate 22 21 22 Blood Pressure 111/73 107/76 106/72 Pulse Oximetry 95 95 95 01/26/19 03:45 01/26/19 04:00 01/26/19 04:15 Temperature Pulse Rate 135 H 133 H 133 H Respiratory Rate 26 H 25 H 26 H Blood Pressure 108/79 113/69 113/73 Pulse Oximetry 96 96 95 01/26/19 04:30 01/26/19 04:45 01/26/19 05:10 Temperature 99.8 F H Pulse Rate 136 H 136 H 136 H Respiratory Rate 20 27 H 23 Blood Pressure 113/69 107/70 118/73 Pulse Oximetry 95 95 95 01/26/19 05:15 01/26/19 05:30 01/26/19 05:45 Temperature Pulse Rate 138 H 141 H 141 H Respiratory Rate 22 26 H 25 H Blood Pressure 112/79 121/76 113/77 Pulse Oximetry 95 95 95 01/26/19 06:00 01/26/19 06:15 01/26/19 06:30 Temperature Pulse Rate 140 H 138 H 139 H Respiratory Rate 23 24 28 H Blood Pressure 115/73 101/67 106/70 Pulse Oximetry 95 95 94 01/26/19 06:45 01/26/19 07:00 01/26/19 07:15 Temperature 99.4 F Pulse Rate 145 H 150 H 138 H Respiratory Rate 29 H 29 H 21 Blood Pressure 113/64 113/69 101/55 L Pulse Oximetry 92 96 94 01/26/19 07:40 01/26/19 08:40 01/26/19 09:45 Temperature Pulse Rate 135 H 138 H 137 H Respiratory Rate 21 23 18 Blood Pressure 97/56 L 99/59 L 98/59 L Pulse Oximetry 95 93 91 Fraction of Inspired Oxygen 35 Oxygen Delivery Method Mechanical Ventilation Oxygen Flow Rate 2 Narrative Exam Narrative: Breathing spontaneously. Lungs are clear anteriorly. Decreased breath sounds in the bases. Heart rapid rate and rhythm. Abdomen is protuberant soft. The dressing/open abdomen is intact. No this of any evisceration. Objective Labs Result Diagrams: 01/26/19 05:05 01/26/19 05:05 Labs: Laboratory Results - last 24 hr 01/25/19 01/25/19 01/25/19 07:15 10:15 10:15 WBC 3.0 L RBC 5.41 H Hgb 16.5 H Hct 49.1 H MCV 90.7 MCH 30.4 MCHC 33.5 RDW 13.6 Plt Count 283 Neut % (Auto) Lymph % (Auto) [place] % (Auto) Eos % (Auto) Baso % (Auto) Neut # (Auto) Lymph # (Auto) [place] # (Auto) Eos # (Auto) Baso # (Auto) Total Counted Seg Neutrophils % Band Neutrophils % Lymphocytes % (Manual) Monocytes % (Manual) Metamyelocytes % Myelocytes % Neutrophils # (Manual) Nucleated RBCs RBC Morphology PT INR APTT Fibrinogen D-Dimer ABG pH ABG pCO2 ABG pO2 ABG HCO3 ABG Total CO2 ABG O2 Saturation ABG Base Excess FiO2 Sodium Potassium Chloride Carbon Dioxide BUN Creatinine Estimated GFR BUN/Creatinine Ratio Glucose Lactate 5.5 H* Calcium Phosphorus Magnesium Total Bilirubin AST ALT Alkaline Phosphatase Total Protein Albumin Globulin Albumin/Globulin Ratio Urine Color Urine Appearance Urine pH Ur Specific [place] Urine Protein Urine Glucose (UA) Urine Ketones Urine Occult Blood Urine Nitrate Urine Bilirubin Urine Ictotest Urine Urobilinogen Ur Leukocyte Esterase Urine RBC Urine WBC Amorphous Sediment Urine Bacteria Ur Culture Indicated? Nasal Screen MRSA (PCR) Blood Type O Positive Antibody Screen Negative Crossmatch See Detail 01/25/19 01/25/19 01/25/19 10:15 12:20 13:22 WBC RBC Hgb Hct MCV MCH MCHC RDW Plt Count Neut % (Auto) Lymph % (Auto) [place] % (Auto) Eos % (Auto) Baso % (Auto) Neut # (Auto) Lymph # (Auto) [place] # (Auto) Eos # (Auto) Baso # (Auto) Total Counted Seg Neutrophils % Band Neutrophils % Lymphocytes % (Manual) Monocytes % (Manual) Metamyelocytes % Myelocytes % Neutrophils # (Manual) Nucleated RBCs RBC Morphology PT 17.4 H INR 1.5 H APTT 30 Fibrinogen 481 H D-Dimer 978 H ABG pH 7.26 L* ABG pCO2 36.4 ABG pO2 71 L ABG HCO3 16 L ABG Total CO2 17 L ABG O2 Saturation 91 L ABG Base Excess -11.0 L FiO2 35 Sodium Potassium Chloride Carbon Dioxide BUN Creatinine Estimated GFR BUN/Creatinine Ratio Glucose Lactate Calcium Phosphorus Magnesium Total Bilirubin AST ALT Alkaline Phosphatase Total Protein Albumin Globulin Albumin/Globulin Ratio Urine Color Urine Appearance Urine pH Ur Specific [place] Urine Protein Urine Glucose (UA) Urine Ketones Urine Occult Blood Urine Nitrate Urine Bilirubin Urine Ictotest Urine Urobilinogen Ur Leukocyte Esterase Urine RBC Urine WBC Amorphous Sediment Urine Bacteria Ur Culture Indicated? Nasal Screen MRSA (PCR) Negative for mrsa Blood Type Antibody Screen Crossmatch 01/25/19 01/25/19 01/25/19 18:10 18:10 18:10 WBC 4.0 L RBC 5.50 H Hgb 16.7 H Hct 49.1 H MCV 89.2 MCH 30.3 MCHC 34.0 RDW 13.3 Plt Count 265 Neut % (Auto) 72.0 Lymph % (Auto) 21.4 L [place] % (Auto) 6.4 Eos % (Auto) 0.1 L Baso % (Auto) 0.1 Neut # (Auto) 2800 Lymph # (Auto) 800 L [place] # (Auto) 300 Eos # (Auto) 0 Baso # (Auto) 0 Total Counted Seg Neutrophils % Band Neutrophils % Lymphocytes % (Manual) Monocytes % (Manual) Metamyelocytes % Myelocytes % Neutrophils # (Manual) Nucleated RBCs RBC Morphology Normal morphology PT INR APTT Fibrinogen D-Dimer ABG pH ABG pCO2 ABG pO2 ABG HCO3 ABG Total CO2 ABG O2 Saturation ABG Base Excess FiO2 Sodium 134 L Potassium 3.7 Chloride 108 H Carbon Dioxide 17 L BUN 18 H Creatinine 0.90 Estimated GFR > 60.0 BUN/Creatinine Ratio 20.0 Glucose 161 H Lactate 4.3 H* Calcium 7.6 L Phosphorus Magnesium Total Bilirubin 1.6 H AST 22 ALT 18 Alkaline Phosphatase 28 L Total Protein 4.2 L Albumin 2.1 L Globulin 2.1 Albumin/Globulin Ratio 1.0 Urine Color Urine Appearance Urine pH Ur Specific [place] Urine Protein Urine Glucose (UA) Urine Ketones Urine Occult Blood Urine Nitrate Urine Bilirubin Urine Ictotest Urine Urobilinogen Ur Leukocyte Esterase Urine RBC Urine WBC Amorphous Sediment Urine Bacteria Ur Culture Indicated? Nasal Screen MRSA (PCR) Blood Type Antibody Screen Crossmatch 01/25/19 01/25/19 01/25/19 18:10 19:35 21:00 WBC RBC Hgb Hct MCV MCH MCHC RDW Plt Count Neut % (Auto) Lymph % (Auto) [place] % (Auto) Eos % (Auto) Baso % (Auto) Neut # (Auto) Lymph # (Auto) [place] # (Auto) Eos # (Auto) Baso # (Auto) Total Counted Seg Neutrophils % Band Neutrophils % Lymphocytes % (Manual) Monocytes % (Manual) Metamyelocytes % Myelocytes % Neutrophils # (Manual) Nucleated RBCs RBC Morphology PT INR APTT Fibrinogen D-Dimer ABG pH 7.28 L* ABG pCO2 34.8 L ABG pO2 77 L ABG HCO3 16 L ABG Total CO2 17 L ABG O2 Saturation 93 L ABG Base Excess -10.0 L FiO2 35 Sodium Potassium Chloride Carbon Dioxide BUN Creatinine Estimated GFR BUN/Creatinine Ratio Glucose Lactate 3.8 H Calcium Phosphorus Magnesium 1.2 L Total Bilirubin AST ALT Alkaline Phosphatase Total Protein Albumin Globulin Albumin/Globulin Ratio Urine Color Urine Appearance Urine pH Ur Specific [place] Urine Protein Urine Glucose (UA) Urine Ketones Urine Occult Blood Urine Nitrate Urine Bilirubin Urine Ictotest Urine Urobilinogen Ur Leukocyte Esterase Urine RBC Urine WBC Amorphous Sediment Urine Bacteria Ur Culture Indicated? Nasal Screen MRSA (PCR) Blood Type Antibody Screen Crossmatch 01/25/19 01/25/19 01/26/19 21:15 21:15 00:30 WBC 4.9 6.1 RBC 5.51 H 5.76 H Hgb 16.9 H 17.2 H Hct 49.2 H 51.4 H MCV 89.3 89.2 MCH 30.7 29.9 MCHC 34.3 33.5 RDW 13.3 13.3 Plt Count 232 254 Neut % (Auto) Lymph % (Auto) [place] % (Auto) Eos % (Auto) Baso % (Auto) Neut # (Auto) Lymph # (Auto) [place] # (Auto) Eos # (Auto) Baso # (Auto) Total Counted 100 100 Seg Neutrophils % 9.0 L 10.0 L Band Neutrophils % 51.0 H 44.0 H Lymphocytes % (Manual) 6.0 L 12.0 L Monocytes % (Manual) 14.0 H 4.0 Metamyelocytes % 15.0 H 22.0 H Myelocytes % 5.0 H 8.0 H Neutrophils # (Manual) 2940 L 3294 Nucleated RBCs 1 H RBC Morphology Normal morphology Normal morphology PT INR APTT Fibrinogen D-Dimer ABG pH ABG pCO2 ABG pO2 ABG HCO3 ABG Total CO2 ABG O2 Saturation ABG Base Excess FiO2 Sodium 133 L Potassium 4.1 Chloride 106 Carbon Dioxide 18 L BUN 18 H Creatinine 0.90 Estimated GFR > 60.0 BUN/Creatinine Ratio 20.0 Glucose 162 H Lactate Calcium 7.4 L Phosphorus Magnesium Total Bilirubin AST ALT Alkaline Phosphatase Total Protein Albumin Globulin Albumin/Globulin Ratio Urine Color Urine Appearance Urine pH Ur Specific [place] Urine Protein Urine Glucose (UA) Urine Ketones Urine Occult Blood Urine Nitrate Urine Bilirubin Urine Ictotest Urine Urobilinogen Ur Leukocyte Esterase Urine RBC Urine WBC Amorphous Sediment Urine Bacteria Ur Culture Indicated? Nasal Screen MRSA (PCR) Blood Type Antibody Screen Crossmatch 01/26/19 01/26/19 01/26/19 00:30 00:30 02:43 WBC RBC Hgb Hct MCV MCH MCHC RDW Plt Count Neut % (Auto) Lymph % (Auto) [place] % (Auto) Eos % (Auto) Baso % (Auto) Neut # (Auto) Lymph # (Auto) [place] # (Auto) Eos # (Auto) Baso # (Auto) Total Counted Seg Neutrophils % Band Neutrophils % Lymphocytes % (Manual) Monocytes % (Manual) Metamyelocytes % Myelocytes % Neutrophils # (Manual) Nucleated RBCs RBC Morphology PT INR APTT Fibrinogen D-Dimer ABG pH ABG pCO2 ABG pO2 ABG HCO3 ABG Total CO2 ABG O2 Saturation ABG Base Excess FiO2 Sodium 132 L Potassium 4.2 Chloride 105 Carbon Dioxide 18 L BUN 18 H Creatinine 1.00 Estimated GFR > 60.0 BUN/Creatinine Ratio 18.0 Glucose 163 H Lactate 3.8 H 3.4 H Calcium 7.9 L Phosphorus 3.8 Magnesium 2.6 H Total Bilirubin AST ALT Alkaline Phosphatase Total Protein Albumin 2.6 L Globulin Albumin/Globulin Ratio Urine Color Urine Appearance Urine pH Ur Specific [place] Urine Protein Urine Glucose (UA) Urine Ketones Urine Occult Blood Urine Nitrate Urine Bilirubin Urine Ictotest Urine Urobilinogen Ur Leukocyte Esterase Urine RBC Urine WBC Amorphous Sediment Urine Bacteria Ur Culture Indicated? Nasal Screen MRSA (PCR) Blood Type Antibody Screen Crossmatch 01/26/19 01/26/19 01/26/19 05:05 05:05 05:05 WBC 7.3 RBC 5.23 H Hgb 15.9 Hct 46.7 H MCV 89.3 MCH 30.4 MCHC 34.1 RDW 13.4 Plt Count 214 Neut % (Auto) Not Reportable Lymph % (Auto) Not Reportable [place] % (Auto) Not Reportable Eos % (Auto) Not Reportable Baso % (Auto) Not Reportable Neut # (Auto) Lymph # (Auto) Not Reportable [place] # (Auto) Not Reportable Eos # (Auto) Baso # (Auto) Not Reportable Total Counted 100 Seg Neutrophils % 2.0 L D Band Neutrophils % 77.0 H Lymphocytes % (Manual) 5.0 L Monocytes % (Manual) 4.0 Metamyelocytes % 12.0 H Myelocytes % Neutrophils # (Manual) 5767 Nucleated RBCs RBC Morphology Normal morphology PT 22.2 H INR 1.9 H APTT Fibrinogen D-Dimer ABG pH ABG pCO2 ABG pO2 ABG HCO3 ABG Total CO2 ABG O2 Saturation ABG Base Excess FiO2 Sodium 132 L Potassium 4.1 Chloride 104 Carbon Dioxide 19 L BUN 16 Creatinine 0.90 Estimated GFR > 60.0 BUN/Creatinine Ratio 17.8 Glucose 157 H Lactate Calcium 7.6 L Phosphorus 3.6 Magnesium 2.3 Total Bilirubin 1.6 H AST 27 ALT 15 Alkaline Phosphatase 40 Total Protein 5.1 L Albumin 2.5 L Globulin 2.6 Albumin/Globulin Ratio 1.0 Urine Color Urine Appearance Urine pH Ur Specific [place] Urine Protein Urine Glucose (UA) Urine Ketones Urine Occult Blood Urine Nitrate Urine Bilirubin Urine Ictotest Urine Urobilinogen Ur Leukocyte Esterase Urine RBC Urine WBC Amorphous Sediment Urine Bacteria Ur Culture Indicated? Nasal Screen MRSA (PCR) Blood Type Antibody Screen Crossmatch 01/26/19 01/26/19 01/26/19 05:05 06:08 07:30 WBC RBC Hgb Hct MCV MCH MCHC RDW Plt Count Neut % (Auto) Lymph % (Auto) [place] % (Auto) Eos % (Auto) Baso % (Auto) Neut # (Auto) Lymph # (Auto) [place] # (Auto) Eos # (Auto) Baso # (Auto) Total Counted Seg Neutrophils % Band Neutrophils % Lymphocytes % (Manual) Monocytes % (Manual) Metamyelocytes % Myelocytes % Neutrophils # (Manual) Nucleated RBCs RBC Morphology PT INR APTT Fibrinogen D-Dimer ABG pH 7.35 ABG pCO2 31.5 L ABG pO2 84 ABG HCO3 17 L ABG Total CO2 18 L ABG O2 Saturation 96 ABG Base Excess -8.0 L FiO2 35 Sodium Potassium Chloride Carbon Dioxide BUN Creatinine Estimated GFR BUN/Creatinine Ratio Glucose Lactate 3.8 H 3.6 H Calcium Phosphorus Magnesium Total Bilirubin AST ALT Alkaline Phosphatase Total Protein Albumin Globulin Albumin/Globulin Ratio Urine Color Urine Appearance Urine pH Ur Specific [place] Urine Protein Urine Glucose (UA) Urine Ketones Urine Occult Blood Urine Nitrate Urine Bilirubin Urine Ictotest Urine Urobilinogen Ur Leukocyte Esterase Urine RBC Urine WBC Amorphous Sediment Urine Bacteria Ur Culture Indicated? Nasal Screen MRSA (PCR) Blood Type Antibody Screen Crossmatch 01/26/19 08:41 WBC RBC Hgb Hct MCV MCH MCHC RDW Plt Count Neut % (Auto) Lymph % (Auto) [place] % (Auto) Eos % (Auto) Baso % (Auto) Neut # (Auto) Lymph # (Auto) [place] # (Auto) Eos # (Auto) Baso # (Auto) Total Counted Seg Neutrophils % Band Neutrophils % Lymphocytes % (Manual) Monocytes % (Manual) Metamyelocytes % Myelocytes % Neutrophils # (Manual) Nucleated RBCs RBC Morphology PT INR APTT Fibrinogen D-Dimer ABG pH ABG pCO2 ABG pO2 ABG HCO3 ABG Total CO2 ABG O2 Saturation ABG Base Excess FiO2 Sodium Potassium Chloride Carbon Dioxide BUN Creatinine Estimated GFR BUN/Creatinine Ratio Glucose Lactate Calcium Phosphorus Magnesium Total Bilirubin AST ALT Alkaline Phosphatase Total Protein Albumin Globulin Albumin/Globulin Ratio Urine Color Yellow Urine Appearance Cloudy Urine pH 5.5 Ur Specific [place] >=1.030 H Urine Protein 1+ H Urine Glucose (UA) Negative Urine Ketones Negative Urine Occult Blood Trace-lysed Urine Nitrate Negative Urine Bilirubin 1+ H Urine Ictotest Negative Urine Urobilinogen 0.2 Ur Leukocyte Esterase Negative Urine RBC None seen Urine WBC 0-1/hpf Amorphous Sediment 4+ Urine Bacteria None seen Ur Culture Indicated? Cult not indicated Nasal Screen MRSA (PCR) Blood Type Antibody Screen Crossmatch Assessment & Plan Post-op Postoperative Procedures: Procedures Operation Date: 01/25/19 08:15 <No data on this case meets the specified criteria> Operation Date: 01/25/19 08:25 Actual Procedures Side Surgeon p Laparoscopy, Diagnostic, FASHION PHOTOGRAPHER/ resection of small portion of small bowel and primary anastamosis Re Islas MD Postoperative day: 1 Postoperative status narrative: Patient remains critically ill on pressor support addition and signs of improvement. Fluid needs appeared to have decreased and her [place] crit has actually come down which in this case is a good thing. She is making good urine and her BUN and creatinine have remained normal. Of concern is her elevated bilirubin and PT. It suggests some liver pathology which may be related to her hypotension. This will probably self correct. The possibility of acalculous cholecystitis is certainly something to consider as well though I think there are plenty of other things to explain her abnormalities. She still has an elevated lactate and a marked left shift with 77 bands despite a normal white blood cell total count. The fact that her white blood cell count is climbing is also a good sign, has prior values were low most likely due to sepsis. No unusual drainage is noted from her suction catheters though there was some leakage corrected with reinforcement with Tegaderm. She remains tachycardic which is also related to sepsis as well as the use of Levophed. Postoperative plan narrative: Either tomorrow or Sunday would like to take her back to the operating room and irrigated out her abdomen and remove any possible forming abscesses and then close her abdomen formally. She will probably require wound VAC. Will discuss this with her . Quality VTE Deep Vein Thrombosis/Pulmonary Embolism Present on Admission: No
--- NOTE | 2019-01-26 10:40 | CM.DANOTE ---
DCP: Case received, EMR reviewed and met with patient. Introduced self and role. Patient intubated at this time, since she will be having another surgery tomorrow, but was able to obtain some information from Trell, ICU nurse, as well as medical record. DCP assessment completed with information currently available. Patient is a 33 year old female who admitted yesterday morning to the care of the hospitalist/surgical team. PCP: [facility]. Payer: confirmed: [facility]. Patient came to the ER via private vehicle secondary to abdominal pain, nausea and vomiting. She had just had surgery Sunday. She holds current diagnosis of bowel perforation. She had surgery yesterday, and will be having more surgery tomorrow, for lavage. Patient had been in septic shock, and had been intubated. She is still intubated at this time, since she is having surgery tomorrow. Put name of this materials planner on the white board in her room. Patient lives in [place] with her spouse, Tay. According to Trell, ICU nurse, family is very supportive. Anticipate that patient will be here for a few days, due to the nature of her illness. P: DCP will continue to follow and check in when she is more stable. Sindi Meyer RN/Matrix Repairer
--- NOTE | 2019-01-26 11:35 | P.PN_ITS ---
Subjective Subjective Date Patient Seen: 01/26/19 Time Patient Seen: 11:15 Interval history: This patient is now POD#1 s/p exploratory laparotomy with repair of bowel injury via end to end small bowel reanastamosis, who remains in the ICU critically ill with sepsis secondary to intraabdominal stool spillage. The patient remains intubated though she is breathing on her own, is sedated with propofol, and has been weaned off vasopressin though she is still requiring a small dose of levophed. She has adequate urine output, and her abdominal drains have high output as expected. Her and a close friend are present in her room this AM, and she is attempting to communicate with them. Exam Vital Signs (past 8 hours): - 01/26/19 03:45 01/26/19 04:00 01/26/19 04:15 Temperature Pulse Rate 135 H 133 H 133 H Respiratory Rate 26 H 25 H 26 H Blood Pressure 108/79 113/69 113/73 Pulse Oximetry 96 96 95 01/26/19 04:30 01/26/19 04:45 01/26/19 05:10 Temperature 99.8 F H Pulse Rate 136 H 136 H 136 H Respiratory Rate 20 27 H 23 Blood Pressure 113/69 107/70 118/73 Pulse Oximetry 95 95 95 01/26/19 05:15 01/26/19 05:30 01/26/19 05:45 Temperature Pulse Rate 138 H 141 H 141 H Respiratory Rate 22 26 H 25 H Blood Pressure 112/79 121/76 113/77 Pulse Oximetry 95 95 95 01/26/19 06:00 01/26/19 06:15 01/26/19 06:30 Temperature Pulse Rate 140 H 138 H 139 H Respiratory Rate 23 24 28 H Blood Pressure 115/73 101/67 106/70 Pulse Oximetry 95 95 94 01/26/19 06:45 01/26/19 07:00 01/26/19 07:15 Temperature 99.4 F Pulse Rate 145 H 150 H 138 H Respiratory Rate 29 H 29 H 21 Blood Pressure 113/64 113/69 101/55 L Pulse Oximetry 92 96 94 01/26/19 07:40 01/26/19 08:40 01/26/19 09:45 Temperature Pulse Rate 135 H 138 H 137 H Respiratory Rate 21 23 18 Blood Pressure 97/56 L 99/59 L 98/59 L Pulse Oximetry 95 93 91 Fraction of Inspired Oxygen 35 Oxygen Delivery Method Mechanical Ventilation Oxygen Flow Rate 2 Narrative Exam Narrative: Patient opening eyes and attempting communication with family, who are present. Further exam deferred to allow family members time with patient. Objective Labs Result Diagrams: 01/26/19 05:05 01/26/19 05:05 Labs: Laboratory Results - last 24 hr 01/25/19 01/25/19 01/25/19 07:15 10:15 10:15 WBC RBC Hgb Hct MCV MCH MCHC RDW Plt Count Neut % (Auto) Lymph % (Auto) [place] % (Auto) Eos % (Auto) Baso % (Auto) Neut # (Auto) Lymph # (Auto) [place] # (Auto) Eos # (Auto) Baso # (Auto) Total Counted Seg Neutrophils % Band Neutrophils % Lymphocytes % (Manual) Monocytes % (Manual) Metamyelocytes % Myelocytes % Neutrophils # (Manual) Nucleated RBCs RBC Morphology PT 17.4 H INR 1.5 H APTT 30 Fibrinogen 481 H D-Dimer 978 H ABG pH ABG pCO2 ABG pO2 ABG HCO3 ABG Total CO2 ABG O2 Saturation ABG Base Excess FiO2 Sodium Potassium Chloride Carbon Dioxide BUN Creatinine Estimated GFR BUN/Creatinine Ratio Glucose Lactate 5.5 H* Calcium Phosphorus Magnesium Total Bilirubin AST ALT Alkaline Phosphatase Total Protein Albumin Globulin Albumin/Globulin Ratio Urine Color Urine Appearance Urine pH Ur Specific [place] Urine Protein Urine Glucose (UA) Urine Ketones Urine Occult Blood Urine Nitrate Urine Bilirubin Urine Ictotest Urine Urobilinogen Ur Leukocyte Esterase Urine RBC Urine WBC Amorphous Sediment Urine Bacteria Ur Culture Indicated? Nasal Screen MRSA (PCR) Blood Type O Positive Antibody Screen Negative Crossmatch See Detail 01/25/19 01/25/19 01/25/19 12:20 13:22 18:10 WBC 4.0 L RBC 5.50 H Hgb 16.7 H Hct 49.1 H MCV 89.2 MCH 30.3 MCHC 34.0 RDW 13.3 Plt Count 265 Neut % (Auto) 72.0 Lymph % (Auto) 21.4 L [place] % (Auto) 6.4 Eos % (Auto) 0.1 L Baso % (Auto) 0.1 Neut # (Auto) 2800 Lymph # (Auto) 800 L [place] # (Auto) 300 Eos # (Auto) 0 Baso # (Auto) 0 Total Counted Seg Neutrophils % Band Neutrophils % Lymphocytes % (Manual) Monocytes % (Manual) Metamyelocytes % Myelocytes % Neutrophils # (Manual) Nucleated RBCs RBC Morphology Normal morphology PT INR APTT Fibrinogen D-Dimer ABG pH 7.26 L* ABG pCO2 36.4 ABG pO2 71 L ABG HCO3 16 L ABG Total CO2 17 L ABG O2 Saturation 91 L ABG Base Excess -11.0 L FiO2 35 Sodium Potassium Chloride Carbon Dioxide BUN Creatinine Estimated GFR BUN/Creatinine Ratio Glucose Lactate Calcium Phosphorus Magnesium Total Bilirubin AST ALT Alkaline Phosphatase Total Protein Albumin Globulin Albumin/Globulin Ratio Urine Color Urine Appearance Urine pH Ur Specific [place] Urine Protein Urine Glucose (UA) Urine Ketones Urine Occult Blood Urine Nitrate Urine Bilirubin Urine Ictotest Urine Urobilinogen Ur Leukocyte Esterase Urine RBC Urine WBC Amorphous Sediment Urine Bacteria Ur Culture Indicated? Nasal Screen MRSA (PCR) Negative for mrsa Blood Type Antibody Screen Crossmatch 01/25/19 01/25/19 01/25/19 18:10 18:10 18:10 WBC RBC Hgb Hct MCV MCH MCHC RDW Plt Count Neut % (Auto) Lymph % (Auto) [place] % (Auto) Eos % (Auto) Baso % (Auto) Neut # (Auto) Lymph # (Auto) [place] # (Auto) Eos # (Auto) Baso # (Auto) Total Counted Seg Neutrophils % Band Neutrophils % Lymphocytes % (Manual) Monocytes % (Manual) Metamyelocytes % Myelocytes % Neutrophils # (Manual) Nucleated RBCs RBC Morphology PT INR APTT Fibrinogen D-Dimer ABG pH ABG pCO2 ABG pO2 ABG HCO3 ABG Total CO2 ABG O2 Saturation ABG Base Excess FiO2 Sodium 134 L Potassium 3.7 Chloride 108 H Carbon Dioxide 17 L BUN 18 H Creatinine 0.90 Estimated GFR > 60.0 BUN/Creatinine Ratio 20.0 Glucose 161 H Lactate 4.3 H* Calcium 7.6 L Phosphorus Magnesium 1.2 L Total Bilirubin 1.6 H AST 22 ALT 18 Alkaline Phosphatase 28 L Total Protein 4.2 L Albumin 2.1 L Globulin 2.1 Albumin/Globulin Ratio 1.0 Urine Color Urine Appearance Urine pH Ur Specific [place] Urine Protein Urine Glucose (UA) Urine Ketones Urine Occult Blood Urine Nitrate Urine Bilirubin Urine Ictotest Urine Urobilinogen Ur Leukocyte Esterase Urine RBC Urine WBC Amorphous Sediment Urine Bacteria Ur Culture Indicated? Nasal Screen MRSA (PCR) Blood Type Antibody Screen Crossmatch 01/25/19 01/25/1901/25/19 19:35 21:00 21:15 WBC 4.9 RBC 5.51 H Hgb 16.9 H Hct 49.2 H MCV 89.3 MCH 30.7 MCHC 34.3 RDW 13.3 Plt Count 232 Neut % (Auto) Lymph % (Auto) [place] % (Auto) Eos % (Auto) Baso % (Auto) Neut # (Auto) Lymph # (Auto) [place] # (Auto) Eos # (Auto) Baso # (Auto) Total Counted 100 Seg Neutrophils % 9.0 L Band Neutrophils % 51.0 H Lymphocytes % (Manual) 6.0 L Monocytes % (Manual) 14.0 H Metamyelocytes % 15.0 H Myelocytes % 5.0 H Neutrophils # (Manual) 2940 L Nucleated RBCs 1 H RBC Morphology Normal morphology PT INR APTT Fibrinogen D-Dimer ABG pH 7.28 L* ABG pCO2 34.8 L ABG pO2 77 L ABG HCO3 16 L ABG Total CO2 17 L ABG O2 Saturation 93 L ABG Base Excess -10.0 L FiO2 35 Sodium Potassium Chloride Carbon Dioxide BUN Creatinine Estimated GFR BUN/Creatinine Ratio Glucose Lactate 3.8 H Calcium Phosphorus Magnesium Total Bilirubin AST ALT Alkaline Phosphatase Total Protein Albumin Globulin Albumin/Globulin Ratio Urine Color Urine Appearance Urine pH Ur Specific [place] Urine Protein Urine Glucose (UA) Urine Ketones Urine Occult Blood Urine Nitrate Urine Bilirubin Urine Ictotest Urine Urobilinogen Ur Leukocyte Esterase Urine RBC Urine WBC Amorphous Sediment Urine Bacteria Ur Culture Indicated? Nasal Screen MRSA (PCR) Blood Type Antibody Screen Crossmatch 01/25/19 01/26/19 01/26/19 21:15 00:30 00:30 WBC 6.1 RBC 5.76 H Hgb 17.2 H Hct 51.4 H MCV 89.2 MCH 29.9 MCHC 33.5 RDW 13.3 Plt Count 254 Neut % (Auto) Lymph % (Auto) [place] % (Auto) Eos % (Auto) Baso % (Auto) Neut # (Auto) Lymph # (Auto) [place] # (Auto) Eos # (Auto) Baso # (Auto) Total Counted 100 Seg Neutrophils % 10.0 L Band Neutrophils % 44.0 H Lymphocytes % (Manual) 12.0 L Monocytes % (Manual) 4.0 Metamyelocytes % 22.0 H Myelocytes % 8.0 H Neutrophils # (Manual) 3294 Nucleated RBCs RBC Morphology Normal morphology PT INR APTT Fibrinogen D-Dimer ABG pH ABG pCO2 ABG pO2 ABG HCO3 ABG Total CO2 ABG O2 Saturation ABG Base Excess FiO2 Sodium 133 L 132 L Potassium 4.1 4.2 Chloride 106 105 Carbon Dioxide 18 L 18 L BUN 18 H 18 H Creatinine 0.90 1.00 Estimated GFR > 60.0 > 60.0 BUN/Creatinine Ratio 20.0 18.0 Glucose 162 H 163 H Lactate Calcium 7.4 L 7.9 L Phosphorus 3.8 Magnesium 2.6 H Total Bilirubin AST ALT Alkaline Phosphatase Total Protein Albumin 2.6 L Globulin Albumin/Globulin Ratio Urine Color Urine Appearance Urine pH Ur Specific [place] Urine Protein Urine Glucose (UA) Urine Ketones Urine Occult Blood Urine Nitrate Urine Bilirubin Urine Ictotest Urine Urobilinogen Ur Leukocyte Esterase Urine RBC Urine WBC Amorphous Sediment Urine Bacteria Ur Culture Indicated? Nasal Screen MRSA (PCR) Blood Type Antibody Screen Crossmatch 01/26/19 01/26/19 01/26/19 00:30 02:43 05:05 WBC 7.3 RBC 5.23 H Hgb 15.9 Hct 46.7 H MCV 89.3 MCH 30.4 MCHC 34.1 RDW 13.4 Plt Count 214 Neut % (Auto) Not Reportable Lymph % (Auto) Not Reportable [place] % (Auto) Not Reportable Eos % (Auto) Not Reportable Baso % (Auto) Not Reportable Neut # (Auto) Lymph # (Auto) Not Reportable [place] # (Auto) Not Reportable Eos # (Auto) Baso # (Auto) Not Reportable Total Counted 100 Seg Neutrophils % 2.0 L D Band Neutrophils % 77.0 H Lymphocytes % (Manual) 5.0 L Monocytes % (Manual) 4.0 Metamyelocytes % 12.0 H Myelocytes % Neutrophils # (Manual) 5767 Nucleated RBCs RBC Morphology Normal morphology PT INR APTT Fibrinogen D-Dimer ABG pH ABG pCO2 ABG pO2 ABG HCO3 ABG Total CO2 ABG O2 Saturation ABG Base Excess FiO2 Sodium Potassium Chloride Carbon Dioxide BUN Creatinine Estimated GFR BUN/Creatinine Ratio Glucose Lactate 3.8 H 3.4 H Calcium Phosphorus Magnesium Total Bilirubin AST ALT Alkaline Phosphatase Total Protein Albumin Globulin Albumin/Globulin Ratio Urine Color Urine Appearance Urine pH Ur Specific [place] Urine Protein Urine Glucose (UA) Urine Ketones Urine Occult Blood Urine Nitrate Urine Bilirubin Urine Ictotest Urine Urobilinogen Ur Leukocyte Esterase Urine RBC Urine WBC Amorphous Sediment Urine Bacteria Ur Culture Indicated? Nasal Screen MRSA (PCR) Blood Type Antibody Screen Crossmatch 01/26/19 01/26/19 01/26/19 05:05 05:05 05:05 WBC RBC Hgb Hct MCV MCH MCHC RDW Plt Count Neut % (Auto) Lymph % (Auto) [place] % (Auto) Eos % (Auto) Baso % (Auto) Neut # (Auto) Lymph # (Auto) [place] # (Auto) Eos # (Auto) Baso # (Auto) Total Counted Seg Neutrophils % Band Neutrophils % Lymphocytes % (Manual) Monocytes % (Manual) Metamyelocytes % Myelocytes % Neutrophils # (Manual) Nucleated RBCs RBC Morphology PT 22.2 H INR 1.9 H APTT Fibrinogen D-Dimer ABG pH ABG pCO2 ABG pO2 ABG HCO3 ABG Total CO2 ABG O2 Saturation ABG Base Excess FiO2 Sodium 132 L Potassium 4.1 Chloride 104 Carbon Dioxide 19 L BUN 16 Creatinine 0.90 Estimated GFR > 60.0 BUN/Creatinine Ratio 17.8 Glucose 157 H Lactate 3.8 H Calcium 7.6 L Phosphorus 3.6 Magnesium 2.3 Total Bilirubin 1.6 H AST 27 ALT 15 Alkaline Phosphatase 40 Total Protein 5.1 L Albumin 2.5 L Globulin 2.6 Albumin/Globulin Ratio 1.0 Urine Color Urine Appearance Urine pH Ur Specific [place] Urine Protein Urine Glucose (UA) Urine Ketones Urine Occult Blood Urine Nitrate Urine Bilirubin Urine Ictotest Urine Urobilinogen Ur Leukocyte Esterase Urine RBC Urine WBC Amorphous Sediment Urine Bacteria Ur Culture Indicated? Nasal Screen MRSA (PCR) Blood Type Antibody Screen Crossmatch 01/26/19 01/26/19 01/26/19 06:08 07:30 08:41 WBC RBC Hgb Hct MCV MCH MCHC RDW Plt Count Neut % (Auto) Lymph % (Auto) [place] % (Auto) Eos % (Auto) Baso % (Auto) Neut # (Auto) Lymph # (Auto) [place] # (Auto) Eos # (Auto) Baso # (Auto) Total Counted Seg Neutrophils % Band Neutrophils % Lymphocytes % (Manual) Monocytes % (Manual) Metamyelocytes % Myelocytes % Neutrophils # (Manual) Nucleated RBCs RBC Morphology PT INR APTT Fibrinogen D-Dimer ABG pH 7.35 ABG pCO2 31.5 L ABG pO2 84 ABG HCO3 17 L ABG Total CO2 18 L ABG O2 Saturation 96 ABG Base Excess -8.0 L FiO2 35 Sodium Potassium Chloride Carbon Dioxide BUN Creatinine Estimated GFR BUN/Creatinine Ratio Glucose Lactate 3.6 H Calcium Phosphorus Magnesium Total Bilirubin AST ALT Alkaline Phosphatase Total Protein Albumin Globulin Albumin/Globulin Ratio Urine Color Yellow Urine Appearance Cloudy Urine pH 5.5 Ur Specific [place] >=1.030 H Urine Protein 1+ H Urine Glucose (UA) Negative Urine Ketones Negative Urine Occult Blood Trace-lysed Urine Nitrate Negative Urine Bilirubin 1+ H Urine Ictotest Negative Urine Urobilinogen 0.2 Ur Leukocyte Esterase Negative Urine RBC None seen Urine WBC 0-1/hpf Amorphous Sediment 4+ Urine Bacteria None seen Ur Culture Indicated? Cult not indicated Nasal Screen MRSA (PCR) Blood Type Antibody Screen Crossmatch Assessment & Plan Assessment & Plan narrative: This patient is a 33yo POD#1 s/p exploratory laparotomy with end to end small bowel reanastomosis of a small bowel injury, which occurred during a laparoscopic left salpingooophorectomy for a left ovarian dermoid cyst. The patient remains critically ill, though with signs of improvement including a normalizing WBC count, decreasing need for pressor support, and downtrending lactate. The patient remains intubated on a propofol drip, continues treatment with zosyn, and remains on levophed. Per Dr. Hughes, patient is to return to OR in 1-2 days for repeat intraabdominal exploration and abdominal closure. Appreciate help from Keo Hughes and Lenard in managing patient's septic shock and bowel injury. Quality VTE Deep Vein Thrombosis/Pulmonary Embolism Present on Admission: No
[2019-01-26] MEDS: DEXTROSE 5% WATER 500 ML 21 ML IV (11:51)
[2019-01-26] MEDS: LACTATED RINGERS 1,000 ML 150 ML IV ×2 (11:52→18:42)
--- NOTE | 2019-01-26 12:41 | PC.NURSE ---
PT REMAINS INTUBATED AND LIGHTLY SEDATED THIS SHIFT- PROPOFOL AT 60MCG/KG BUT STILL REQUIRES SMALL AMOUNT OF NOREPINEPHRINE- VASOPRESSIN WEANED TO OFF. SINUS TACHYCARDIA RATE BETWEEN 145-150BPM , MAKING ADEQUATE URINE WITH SEDIMENT IN MOELLER BAG- SENT FOR UAC- NO EVIDENCE OF BACTERIA. SHE WAS ATTEMPTING TO COMMUNICATE WITH HER SPOUSE, HERRERA,- BUT BECAME INCREASINGLY AGITATED- RESTRAINTS REMAIN IN PLACE. ABD DRAINS PATENT TO WALL SUCTION WITH SERO-SANG DRAINAGE NO FURTHER DRAINAGE LEAKING BENEATH THE DRESSING- OGT TO LOW INTERMITTENT SUCTION
[2019-01-26] MEDS: NOREPINEPHRINE 4 MG in DEXTROSE 5% IN WATER 250 ML 19.05 ML IV (12:45)
--- NOTE | 2019-01-26 12:59 | P.PN_ITS ---
Subjective Subjective Date Patient Seen: 01/26/19 Time Patient Seen: 08:20 Interval history: Sophie Verdin is a 33-year-old female with history of chronic low back pain, and possible PCOS who presented to the emergency room today with abdominal pain and emesis. She is status post laparoscopic left salpingoophorectomy on the morning of 01/24 for a large dermoid cyst, she underwent a diagnostic laparoscopy which revealed a small bowel perforation. She is now status post short-segment small bowel resection on 01/25 and admitted to the ICU. Medicine is consulted for assistance with management for septic shock and ventilator management. This morning she continues to improve as far as her septic shock. She eventually required vasopressin which was has now been discontinued. She remains on Levophed of 5 as of this morning and her labs continue to improve. W ith increased sedation her heart rate does improve, but she remains tachycardic between 130-150 today. Sedation was held briefly and she attempted to communicate with her spouse but she became agitated today. She was then placed back on propofol which is currently at 60. Her oxygenation continues to improve with treatment of sepsis, however she should remain intubated today given patient is still on pressors and her PF ratio is still decreased. Exam Vital Signs (past 8 hours): - 01/26/19 05:10 01/26/19 05:15 01/26/19 05:30 Temperature Pulse Rate 136 H 138 H 141 H Respiratory Rate 23 22 26 H Blood Pressure 118/73 112/79 121/76 Pulse Oximetry 95 95 95 01/26/19 05:45 01/26/19 06:00 01/26/19 06:15 Temperature Pulse Rate 141 H 140 H 138 H Respiratory Rate 25 H 23 24 Blood Pressure 113/77 115/73 101/67 Pulse Oximetry 95 95 95 01/26/19 06:30 01/26/19 06:45 01/26/19 07:00 Temperature Pulse Rate 139 H 145 H 150 H Respiratory Rate 28 H 29 H 29 H Blood Pressure 106/70 113/64 113/69 Pulse Oximetry 94 92 96 01/26/19 07:15 01/26/19 07:40 01/26/19 08:40 Temperature 99.4 F Pulse Rate 138 H 135 H 138 H Respiratory Rate 21 21 23 Blood Pressure 101/55 L 97/56 L 99/59 L Pulse Oximetry 94 95 93 01/26/19 09:45 01/26/19 11:42 Temperature 99.5 F Pulse Rate 137 H 149 H Respiratory Rate 18 21 Blood Pressure 98/59 L 106/62 Pulse Oximetry 91 94 Fraction of Inspired Oxygen 35 Oxygen Delivery Method Mechanical Ventilation Oxygen Flow Rate 2 Narrative Exam Narrative: GENERAL APPEARANCE: Obese female, slightly pale, intubated and lightly sedated SKIN: Inspection of the skin reveals no rashes, ulcerations or petechiae. HEENT: ETT in place, no secretions, oral mucosa appears dry but improved. NECK: Supple and symmetric. There was no thyroid enlargement, and no tenderness, or masses were felt. CHEST: Normal AP diameter and normal contour without any kyphoscoliosis. LUNGS: Auscultation of the lungs anteriorly revealed no wheezes, rhonchi, or rales. CARDIOVASCULAR: Tachycardic and regular without murmurs rubs or gallops. ABDOMEN: open abdomen with wound VAC and 2 drains with serosanguineous output. Dressings c/d/i. MUSCULOSKELETAL: There were no effusions noted. EXTREMITIES: No cyanosis, clubbing. There is slight peripheral nonpitting edema bilaterally, minimal to trace. NEUROLOGIC: Lightly sedated but opens eyes to voice, follows commands, moving all extremities equally. Objective Labs Result Diagrams: 01/26/19 05:05 01/26/19 05:05 Labs: Laboratory Results - last 24 hr 01/25/19 01/25/19 01/25/19 07:15 12:20 13:22 WBC RBC Hgb Hct MCV MCH MCHC RDW Plt Count Neut % (Auto) Lymph % (Auto) [place] % (Auto) Eos % (Auto) Baso % (Auto) Neut # (Auto) Lymph # (Auto) [place] # (Auto) Eos # (Auto) Baso # (Auto) Total Counted Seg Neutrophils % Band Neutrophils % Lymphocytes % (Manual) Monocytes % (Manual) Metamyelocytes % Myelocytes % Neutrophils # (Manual) Nucleated RBCs RBC Morphology PT INR ABG pH 7.26 L* ABG pCO2 36.4 ABG pO2 71 L ABG HCO3 16 L ABG Total CO2 17 L ABG O2 Saturation 91 L ABG Base Excess -11.0 L FiO2 35 Sodium Potassium Chloride Carbon Dioxide BUN Creatinine Estimated GFR BUN/Creatinine Ratio Glucose Lactate Calcium Phosphorus Magnesium Total Bilirubin AST ALT Alkaline Phosphatase Total Protein Albumin Globulin Albumin/Globulin Ratio Urine Color Urine Appearance Urine pH Ur Specific [place] Urine Protein Urine Glucose (UA) Urine Ketones Urine Occult Blood Urine Nitrate Urine Bilirubin Urine Ictotest Urine Urobilinogen Ur Leukocyte Esterase Urine RBC Urine WBC Amorphous Sediment Urine Bacteria Ur Culture Indicated? Nasal Screen MRSA (PCR) Negative for mrsa Blood Type O Positive Antibody Screen Negative Crossmatch See Detail 01/25/19 01/25/19 01/25/19 18:10 18:10 18:10 WBC 4.0 L RBC 5.50 H Hgb 16.7 H Hct 49.1 H MCV 89.2 MCH 30.3 MCHC 34.0 RDW 13.3 Plt Count 265 Neut % (Auto) 72.0 Lymph % (Auto) 21.4 L [place] % (Auto) 6.4 Eos % (Auto) 0.1 L Baso % (Auto) 0.1 Neut # (Auto) 2800 Lymph # (Auto) 800 L [place] # (Auto) 300 Eos # (Auto) 0 Baso # (Auto) 0 Total Counted Seg Neutrophils % Band Neutrophils % Lymphocytes % (Manual) Monocytes % (Manual) Metamyelocytes % Myelocytes % Neutrophils # (Manual) Nucleated RBCs RBC Morphology Normal morphology PT INR ABG pH ABG pCO2 ABG pO2 ABG HCO3 ABG Total CO2 ABG O2 Saturation ABG Base Excess FiO2 Sodium 134 L Potassium 3.7 Chloride 108 H Carbon Dioxide 17 L BUN 18 H Creatinine 0.90 Estimated GFR > 60.0 BUN/Creatinine Ratio 20.0 Glucose 161 H Lactate 4.3 H* Calcium 7.6 L Phosphorus Magnesium Total Bilirubin 1.6 H AST 22 ALT 18 Alkaline Phosphatase 28 L Total Protein 4.2 L Albumin 2.1 L Globulin 2.1 Albumin/Globulin Ratio 1.0 Urine Color Urine Appearance Urine pH Ur Specific [place] Urine Protein Urine Glucose (UA) Urine Ketones Urine Occult Blood Urine Nitrate Urine Bilirubin Urine Ictotest Urine Urobilinogen Ur Leukocyte Esterase Urine RBC Urine WBC Amorphous Sediment Urine Bacteria Ur Culture Indicated? Nasal Screen MRSA (PCR) Blood Type Antibody Screen Crossmatch 01/25/19 01/25/19 01/25/19 18:10 19:35 21:00 WBC RBC Hgb Hct MCV MCH MCHC RDW Plt Count Neut % (Auto) Lymph % (Auto) [place] % (Auto) Eos % (Auto) Baso % (Auto) Neut # (Auto) Lymph # (Auto) [place] # (Auto) Eos # (Auto) Baso # (Auto) Total Counted Seg Neutrophils % Band Neutrophils % Lymphocytes % (Manual) Monocytes % (Manual) Metamyelocytes % Myelocytes % Neutrophils # (Manual) Nucleated RBCs RBC Morphology PT INR ABG pH 7.28 L* ABG pCO2 34.8 L ABG pO2 77 L ABG HCO3 16 L ABG Total CO2 17 L ABG O2 Saturation 93 L ABG Base Excess -10.0 L FiO2 35 Sodium Potassium Chloride Carbon Dioxide BUN Creatinine Estimated GFR BUN/Creatinine Ratio Glucose Lactate 3.8 H Calcium Phosphorus Magnesium 1.2 L Total Bilirubin AST ALT Alkaline Phosphatase Total Protein Albumin Globulin Albumin/Globulin Ratio Urine Color Urine Appearance Urine pH Ur Specific [place] Urine Protein Urine Glucose (UA) Urine Ketones Urine Occult Blood Urine Nitrate Urine Bilirubin Urine Ictotest Urine Urobilinogen Ur Leukocyte Esterase Urine RBC Urine WBC Amorphous Sediment Urine Bacteria Ur Culture Indicated? Nasal Screen MRSA (PCR) Blood Type Antibody Screen Crossmatch 01/25/19 01/25/19 01/26/19 21:15 21:15 00:30 WBC 4.9 6.1 RBC 5.51 H 5.76 H Hgb 16.9 H 17.2 H Hct 49.2 H 51.4 H MCV 89.3 89.2 MCH 30.7 29.9 MCHC 34.3 33.5 RDW 13.3 13.3 Plt Count 232 254 Neut % (Auto) Lymph % (Auto) [place] % (Auto) Eos % (Auto) Baso % (Auto) Neut # (Auto) Lymph # (Auto) [place] # (Auto) Eos # (Auto) Baso # (Auto) Total Counted 100 100 Seg Neutrophils % 9.0 L 10.0 L Band Neutrophils % 51.0 H 44.0 H Lymphocytes % (Manual) 6.0 L 12.0 L Monocytes % (Manual) 14.0 H 4.0 Metamyelocytes % 15.0 H 22.0 H Myelocytes % 5.0 H 8.0 H Neutrophils # (Manual) 2940 L 3294 Nucleated RBCs 1 H RBC Morphology Normal morphology Normal morphology PT INR ABG pH ABG pCO2 ABG pO2 ABG HCO3 ABG Total CO2 ABG O2 Saturation ABG Base Excess FiO2 Sodium 133 L Potassium 4.1 Chloride 106 Carbon Dioxide 18 L BUN 18 H Creatinine 0.90 Estimated GFR > 60.0 BUN/Creatinine Ratio 20.0 Glucose 162 H Lactate Calcium 7.4 L Phosphorus Magnesium Total Bilirubin AST ALT Alkaline Phosphatase Total Protein Albumin Globulin Albumin/Globulin Ratio Urine Color Urine Appearance Urine pH Ur Specific [place] Urine Protein Urine Glucose (UA) Urine Ketones Urine Occult Blood Urine Nitrate Urine Bilirubin Urine Ictotest Urine Urobilinogen Ur Leukocyte Esterase Urine RBC Urine WBC Amorphous Sediment Urine Bacteria Ur Culture Indicated? Nasal Screen MRSA (PCR) Blood Type Antibody Screen Crossmatch 01/26/19 01/26/19 01/26/19 00:30 00:30 02:43 WBC RBC Hgb Hct MCV MCH MCHC RDW Plt Count Neut % (Auto) Lymph % (Auto) [place] % (Auto) Eos % (Auto) Baso % (Auto) Neut # (Auto) Lymph # (Auto) [place] # (Auto) Eos # (Auto) Baso # (Auto) Total Counted Seg Neutrophils % Band Neutrophils % Lymphocytes % (Manual) Monocytes % (Manual) Metamyelocytes % Myelocytes % Neutrophils # (Manual) Nucleated RBCs RBC Morphology PT INR ABG pH ABG pCO2 ABG pO2 ABG HCO3 ABG Total CO2 ABG O2 Saturation ABG Base Excess FiO2 Sodium 132 L Potassium 4.2 Chloride 105 Carbon Dioxide 18 L BUN 18 H Creatinine 1.00 Estimated GFR > 60.0 BUN/Creatinine Ratio 18.0 Glucose 163 H Lactate 3.8 H 3.4 H Calcium 7.9 L Phosphorus 3.8 Magnesium 2.6 H Total Bilirubin AST ALT Alkaline Phosphatase Total Protein Albumin 2.6 L Globulin Albumin/Globulin Ratio Urine Color Urine Appearance Urine pH Ur Specific [place] Urine Protein Urine Glucose (UA) Urine Ketones Urine Occult Blood Urine Nitrate Urine Bilirubin Urine Ictotest Urine Urobilinogen Ur Leukocyte Esterase Urine RBC Urine WBC Amorphous Sediment Urine Bacteria Ur Culture Indicated? Nasal Screen MRSA (PCR) Blood Type Antibody Screen Crossmatch 01/26/19 01/26/19 01/26/19 05:05 05:05 05:05 WBC 7.3 RBC 5.23 H Hgb 15.9 Hct 46.7 H MCV 89.3 MCH 30.4 MCHC 34.1 RDW 13.4 Plt Count 214 Neut % (Auto) Not Reportable Lymph % (Auto) Not Reportable [place] % (Auto) Not Reportable Eos % (Auto) Not Reportable Baso % (Auto) Not Reportable Neut # (Auto) Lymph # (Auto) Not Reportable [place] # (Auto) Not Reportable Eos # (Auto) Baso # (Auto) Not Reportable Total Counted 100 Seg Neutrophils % 2.0 L D Band Neutrophils % 77.0 H Lymphocytes % (Manual) 5.0 L Monocytes % (Manual) 4.0 Metamyelocytes % 12.0 H Myelocytes % Neutrophils # (Manual) 5767 Nucleated RBCs RBC Morphology Normal morphology PT 22.2 H INR 1.9 H ABG pH ABG pCO2 ABG pO2 ABG HCO3 ABG Total CO2 ABG O2 Saturation ABG Base Excess FiO2 Sodium 132 L Potassium 4.1 Chloride 104 Carbon Dioxide 19 L BUN 16 Creatinine 0.90 Estimated GFR > 60.0 BUN/Creatinine Ratio 17.8 Glucose 157 H Lactate Calcium 7.6 L Phosphorus 3.6 Magnesium 2.3 Total Bilirubin 1.6 H AST 27 ALT 15 Alkaline Phosphatase 40 Total Protein 5.1 L Albumin 2.5 L Globulin 2.6 Albumin/Globulin Ratio 1.0 Urine Color Urine Appearance Urine pH Ur Specific [place] Urine Protein Urine Glucose (UA) Urine Ketones Urine Occult Blood Urine Nitrate Urine Bilirubin Urine Ictotest Urine Urobilinogen Ur Leukocyte Esterase Urine RBC Urine WBC Amorphous Sediment Urine Bacteria Ur Culture Indicated? Nasal Screen MRSA (PCR) Blood Type Antibody Screen Crossmatch 01/26/19 01/26/19 01/26/19 05:05 06:08 07:30 WBC RBC Hgb Hct MCV MCH MCHC RDW Plt Count Neut % (Auto) Lymph % (Auto) [place] % (Auto) Eos % (Auto) Baso % (Auto) Neut # (Auto) Lymph # (Auto) [place] # (Auto) Eos # (Auto) Baso # (Auto) Total Counted Seg Neutrophils % Band Neutrophils % Lymphocytes % (Manual) Monocytes % (Manual) Metamyelocytes % Myelocytes % Neutrophils # (Manual) Nucleated RBCs RBC Morphology PT INR ABG pH 7.35 ABG pCO2 31.5 L ABG pO2 84 ABG HCO3 17 L ABG Total CO2 18 L ABG O2 Saturation 96 ABG Base Excess -8.0 L FiO2 35 Sodium Potassium Chloride Carbon Dioxide BUN Creatinine Estimated GFR BUN/Creatinine Ratio Glucose Lactate 3.8 H 3.6 H Calcium Phosphorus Magnesium Total Bilirubin AST ALT Alkaline Phosphatase Total Protein Albumin Globulin Albumin/Globulin Ratio Urine Color Urine Appearance Urine pH Ur Specific [place] Urine Protein Urine Glucose (UA) Urine Ketones Urine Occult Blood Urine Nitrate Urine Bilirubin Urine Ictotest Urine Urobilinogen Ur Leukocyte Esterase Urine RBC Urine WBC Amorphous Sediment Urine Bacteria Ur Culture Indicated? Nasal Screen MRSA (PCR) Blood Type Antibody Screen Crossmatch 01/26/19 08:41 WBC RBC Hgb Hct MCV MCH MCHC RDW Plt Count Neut % (Auto) Lymph % (Auto) [place] % (Auto) Eos % (Auto) Baso % (Auto) Neut # (Auto) Lymph # (Auto) [place] # (Auto) Eos # (Auto) Baso # (Auto) Total Counted Seg Neutrophils % Band Neutrophils % Lymphocytes % (Manual) Monocytes % (Manual) Metamyelocytes % Myelocytes % Neutrophils # (Manual) Nucleated RBCs RBC Morphology PT INR ABG pH ABG pCO2 ABG pO2 ABG HCO3 ABG Total CO2 ABG O2 Saturation ABG Base Excess FiO2 Sodium Potassium Chloride Carbon Dioxide BUN Creatinine Estimated GFR BUN/Creatinine Ratio Glucose Lactate Calcium Phosphorus Magnesium Total Bilirubin AST ALT Alkaline Phosphatase Total Protein Albumin Globulin Albumin/Globulin Ratio Urine Color Yellow Urine Appearance Cloudy Urine pH 5.5 Ur Specific [place] >=1.030 H Urine Protein 1+ H Urine Glucose (UA) Negative Urine Ketones Negative Urine Occult Blood Trace-lysed Urine Nitrate Negative Urine Bilirubin 1+ H Urine Ictotest Negative Urine Urobilinogen 0.2 Ur Leukocyte Esterase Negative Urine RBC None seen Urine WBC 0-1/hpf Amorphous Sediment 4+ Urine Bacteria None seen Ur Culture Indicated? Cult not indicated Nasal Screen MRSA (PCR) Blood Type Antibody Screen Crossmatch Assessment & Plan Assessment & Plan narrative: Sophie Verdin is a 33-year-old female with history of chronic low back pain, and possible PCOS who presented to the emergency room today with abdominal pain and emesis. She is status post laparoscopic left salpingoophorectomy on the morning of 01/24 for a large dermoid cyst, she underwent a diagnostic laparoscopy which revealed a small bowel perforation. She is now status post short-segment small bowel resection and admitted to the ICU. Medicine is consulted for assistance with management for septic shock and ventilator management. She still remains on pressor support but is improving today. 1. Septic shock, present on admission, improving -secondary to bowel perforation and subsequent stool spillage into her abdomen. Patient was given antibiotics and was fluid resuscitated but her pressures remain low. She ultimately required vasopressin and Levophed but is now improving, and is on a small amount of Levophed which if she continues her current trend should be titrated off later today. -continue to wean from Levophed as able. -monitor drain output -chest x-ray read as left retrocardiac infiltrate versus atelectasis, likely atelectasis upon my interpretation. However patient was urgently taken to operating room and had vomited prior. Continue to monitor for aspiration and patient's current antibiotics are covering any aspiration event. -continue Zosyn -continue fluid resuscitation, monitor drain output. -continue mechanical ventilation until improved hemodynamically. Continue propofol and prn morphine. -respiratory therapy eval and treat - UA negative for infection 2. Acute renal failure, present on admission, improved- Baseline cr 0.6, on admission 1.2 from septic shock and hypovolemic. Cr now improved to 0.9. - continue care as noted above. 3. Acute hypoxemic respiratory failure secondary to sepsis, ABG on vent showing PF ratio of 202 initially and is slightly improved today to 240. Will continue to treat underling sepsis and optimize ventilatory status until hemodynamically improved. Possible aspiration given emesis and then subsequent intubation as well, however patient is on zosyn at this time for intra-abdominal source which will cover aspiration event. - repeat blood gas in AM. - continue management of sepsis as noted above. 4. Anion gap metabolic acidosis, present on admission, resolved- secondary to septic shock and elevated lactate. Improved with treatement of above sepsis. 5. Hyponatremia, mild, acute -likely secondary to hypovolemia as evidence by UA which has high specific gravity. -continue fluid support for sepsis as noted above. 6. Coagulopathy - elevated INR and bilirubin likely related to sepsis and hypotension. This will likely improve with time. - continue to monitor INR daily 7. Elevated glucose - may be reactive secondary to sepsis however given possible PCOS and obesity diabetes is a possibilty. - A1c will be unreliable given recent transfusion - FS q6 hr with corrective sliding scale - recommend outpatient A1c after approx. 90 days given transfusion. 8. Dehydration, acute, present on admission - secondary to nausea / vomiting and intra-abdominal spillage. Hg on admission was 19 (baseline of around 13). She will need continued IVF for management of sepsis as well as replacement of her abdominal losses given drains. 9. S/p Small bowel resection - complication of laparoscopic salpingoophorectomy. - Plan for return to the operating room on 01/27 or 01/28 per general surgery for washout, possible closure. - monitor drain output and replete as necessary. I spent 35 minutes providing critical care management this patient. This excludes time spent in performing separately billed procedures. Surrogate decision maker is spouse. Medicine will continue to follow this patient. Quality VTE Deep Vein Thrombosis/Pulmonary Embolism Present on Admission: No
[2019-01-26] MEDS: LORazepam 2 MG/ML INJ 0.5 MG IV (15:42)
[2019-01-26] MEDS: ACETAMINOPHEN 650 MG SUPP PR ×2 (15:46→21:30)
[2019-01-26] MEDS: LORazepam 20 MG in SODIUM CHLORIDE 0.9% 100 ML 6.551 ML IV (18:40)
--- NOTE | 2019-01-26 18:46 | PC.NURSE ---
Addendum entered by Bryanna Angela R.N. 01/26/19 22:12: 2100-Pt continues with elevated Temp. Rec'd order for Apap supp to q4h, administered. 100.9. Turned Ativan gtt down to 5mls/hr. Propofol currently 40mcg/kg/min. Addendum entered by Bryanna Angela R.N. 01/26/19 19:09: 1800-HR remains elevated, 155, Dr Weinberg made aware, orders rec'd. Ativan gtt started, @ 6.5mls/hr. PIV site to R hand lost, Ativan placed on PIV L AC, Propofol moved to second lumen of PICC. Pt remains diaphoretic/flushed, rectal temp 100.9 currently. Original Note: PM shift Pt is vented, Propofol @ 60mcg/kg/min, Pt remains lightly sedated, able to open eyes to voice. HR 140-150. Breathing over vent. Using Morphine PRN, BP stable with tapering on Levophed. Reduced to 3mcg/min. PRN Ativan given with good effect. Lungs are clear and dim, Spo2 95% on vent, Elevated temp @ 100.6, Dr Aguirre aware and APAP supp given. Rectal temp probe placed.
[2019-01-26 23:29] LABS: Hematocrit 36.1 % (36-46); Hemoglobin 12.9 g/dL (12.0-16.0); Mean Corpuscular HGB Conc 35.7 % (30-36); Mean Corpuscular Hemoglobin 31.6 PG (26-34); Mean Corpuscular Volume 88.4 fL (80-100); Platelet Count 149 X10^3/uL (150-400); Red Blood Cell Count 4.09 X10^6/uL (4.0-5.2); Red Cell Distribution Width 13.2 % (11.6-14.8); White Blood Cell Count 8.2 X10^3/uL (4.5-11.0)
[2019-01-26 23:30] LABS: Lactate (Lactic Acid) 2.1 mmol/L (0.7-2.1); Magnesium 2.5 mg/dL (1.6-2.3)
[2019-01-26 23:31] LABS: Albumin 2.4 g/dL (3.5-5.0); BUN Creatinine Ratio 17.1 (6-22); Blood Urea Nitrogen 12 mg/dL (7-17); Calcium 7.6 mg/dL (8.4-10.2); Carbon Dioxide 23 mmol/L (22-32); Chloride 105 mmol/L (98-107); Estimated Glomerular Filt Rate > 60.0 mL/min (>60); Glucose 114 mg/dL (70-100); HEMOLYSIS 28 (0-50); Phosphorous 2.3 mg/dL (2.5-4.5); Sodium 133 mmol/L (137-145)
[2019-01-26 23:32] LABS: Add Manual Diff / Slide Review YES
[2019-01-27] VITALS (59 sets, daily range): BP systolic 76–128; BP diastolic 36–80; PULSE 103–143; RESP 15–22; TEMP 36.3–38.6; O2SAT 18–99
--- NOTE | 2019-01-27 | PATH_ITS ---
[facility] Accession Number: [id number] . 01 Material submitted: . anastomosis - PRIOR ANASTOMOSIS . 02 Diagnosis: Small Bowel, Prior Anastomosis, Resection: Segment of small bowel with anastomotic site and serositis. No evidence of neoplasm. MRV 01/29/2019 1046 Local . 02 Electronically signed: . Emigdio Schwartz MD, PhD, Pathologist NPI- [id number] . 01 Gross description: . Received in formalin, labeled prior anastomosis, are two unoriented segments of small bowel sutured together (length-7.2 cm, resection margin #1 diameter-2.1 cm, resection margin #2 diameter-2.5 cm) with attached adipose tissue (up to 9.5 cm in depth). The resection margins are received stapled. The serosa is rg-heredia smooth and shiny. The mucosa is heredia with normal folds. No nodules, masses or lesions are identified. The resection margins are inked blue. Section code: (A1) resection margin #1, longitudinal front desk representative; (A2) resection margin #2, longitudinal front desk representative; (A3) front desk representative serial sections. ([id number]) /MRV 01/28/2019 1321 Local . 02 Pathologist provided ICD-10: A41.9, R65.21 . 02 CPT . 350910 Performed at: 01 [facility] [address] [id number] MD Mich Moran MD Phone: [phone] Performed at: 02 [facility] [place] [id number] [place], [place] [id number] MD Mariya Espinoza MD Phone: [phone]
[2019-01-27] MEDS: MORPHINE 2 MG/ML INJ IV ×7 (00:29→22:40)
[2019-01-27] MEDS: PIPERACILLIN-TAZO 3.375 GM/50 ML FROZ.PIGGY IV ×4 (01:19→19:30)
[2019-01-27] MEDS: ACETAMINOPHEN 650 MG SUPP PR ×3 (01:28→21:13)
--- NOTE | 2019-01-27 01:37 | PC.NURSE ---
Ice packs in axilla and behind neck at 0100.
[2019-01-27] MEDS: PROPOFOL 1,000 MG/100 ML VIAL 26.671 MG IV ×3 (01:41→12:18)
[2019-01-27] MEDS: LACTATED RINGERS 1,000 ML 150 ML IV ×3 (02:44→17:31)
[2019-01-27] MEDS: KETOROLAC 30 MG/ML VIAL IV (03:00)
[2019-01-27 05:00] LABS: INR 1.3 (0.9-1.3); Prothrombin Time 15.1 SECONDS (10.1-12.7)
[2019-01-27 05:01] LABS: Lactate (Lactic Acid) 1.9 mmol/L (0.7-2.1)
[2019-01-27 05:02] LABS: Alanine Aminotransferase 14 IU/L (<35); Albumin 2.4 g/dL (3.5-5.0); Alkaline Phosphatase 52 U/L (38-126); Aspartate Aminotransferase 31 IU/L (14-36); BUN Creatinine Ratio 18.6 (6-22); Bilirubin Total 0.8 mg/dL (0.2-1.3); Blood Urea Nitrogen 13 mg/dL (7-17); Calcium 7.4 mg/dL (8.4-10.2); Carbon Dioxide 25 mmol/L (22-32); Chloride 104 mmol/L (98-107); Estimated Glomerular Filt Rate > 60.0 mL/min (>60); Globulin 2.5 g/dL (1.7-4.1); Glucose 110 mg/dL (70-100); HEMOLYSIS 48 (0-50); Hemoglobin 12.4 g/dL (12.0-16.0); Magnesium 2.7 mg/dL (1.6-2.3); Mean Corpuscular HGB Conc 35.6 % (30-36); Mean Corpuscular Hemoglobin 31.4 PG (26-34); Mean Corpuscular Volume 88.3 fL (80-100); Phosphorous 2.2 mg/dL (2.5-4.5); Platelet Count 139 X10^3/uL (150-400); Red Blood Cell Count 3.96 X10^6/uL (4.0-5.2); Sodium 132 mmol/L (137-145); Total Protein 4.9 g/dL (6.3-8.2); White Blood Cell Count 8.8 X10^3/uL (4.5-11.0)
[2019-01-27 05:03] LABS: Add Manual Diff / Slide Review YES
[2019-01-27 05:23] LABS: Fractionated Inspired Oxygen 0.35; HCO3 ABG 24 mmol/L (22-26); Oxygen Saturation ABG 97 % (95-100); PCO2 ABG 39.9 mmHg (35-45); PO2 ABG 92 mmHg (80-100); TCO2 ABG 25 mmol/L (21-31); pH ABG 7.38 (7.35-7.45)
[2019-01-27 07:59] LABS: Neutrophils Absolute Manual 7298 /uL (3000-5900); Total Cells Counted 100
[2019-01-27 08:00] LABS: Basophilic Stippling 1+; Dohle Bodies 2+; Polychromasia 1+; Smudge Cells 1+; Toxic Granulation Present; Toxic Vacuolation Present
[2019-01-27 08:06] LABS: Dohle Bodies 2+; Neutrophils Absolute Manual 8096 /uL (3000-5900); Total Cells Counted 100; Toxic Granulation Present; Toxic Vacuolation Present
[2019-01-27 08:25] LABS: Hematocrit 30.3 % (36-46)
[2019-01-27] MEDS: PROPOFOL 1,000 MG/100 ML VIAL 30.005 MG IV (08:32)
[2019-01-27] MEDS: PANTOPRAZOLE 40 MG VIAL IV (08:38)
--- NOTE | 2019-01-27 09:35 | P.PN_ITS ---
Subjective Subjective Date Patient Seen: 01/27/19 Time Patient Seen: 07:40 Interval history: Patient is somewhat clinically improved, on low dose of Levophed versus 2 pressors. Improving urine output. Improving labs. Exam Vital Signs (past 8 hours): - 01/27/19 02:00 01/27/19 02:05 01/27/19 02:15 Temperature 98.2 F 100.6 F H Pulse Rate 125 H 123 H Respiratory Rate 18 17 Blood Pressure 96/47 L 101/52 L Pulse Oximetry 96 97 01/27/19 02:20 01/27/19 02:30 01/27/19 02:45 Temperature 100.6 F H Pulse Rate 122 H 121 H Respiratory Rate 18 18 Blood Pressure 99/45 L 102/55 L Pulse Oximetry 97 97 01/27/19 03:00 01/27/19 03:15 01/27/19 03:30 Temperature 100.2 F H Pulse Rate 123 H 120 H 119 H Respiratory Rate 18 18 18 Blood Pressure 99/47 L 101/50 L 100/49 L Pulse Oximetry 97 97 97 01/27/19 03:34 01/27/19 03:45 01/27/19 04:00 Temperature 99.9 F H 99.7 F H Pulse Rate 119 H 117 H Respiratory Rate 18 18 Blood Pressure 94/52 L 94/50 L Pulse Oximetry 97 97 01/27/19 04:15 01/27/19 04:30 01/27/19 04:45 Temperature Pulse Rate 118 H 118 H 114 H Respiratory Rate 15 21 18 Blood Pressure 94/52 L 102/48 L 78/36 L Pulse Oximetry 97 96 96 01/27/19 05:00 01/27/19 05:30 01/27/19 05:50 Temperature 99.5 F 99.7 F H Pulse Rate 114 H 109 H 111 H Respiratory Rate 18 18 18 Blood Pressure 76/37 L 86/39 L 84/39 L Pulse Oximetry 96 96 97 01/27/19 06:00 01/27/19 06:16 01/27/19 06:32 Temperature 99.1 F 99.7 F H Pulse Rate 109 H 111 H Respiratory Rate 18 18 Blood Pressure 100/45 L 83/38 L Pulse Oximetry 98 98 01/27/19 06:46 01/27/19 07:00 01/27/19 08:00 Temperature 99.1 F 99.1 F Pulse Rate 108 H 110 H 113 H Respiratory Rate 19 18 Blood Pressure 78/39 L 86/43 L 106/69 Pulse Oximetry 18 L 98 99 01/27/19 09:00 Temperature 99.1 F Pulse Rate 117 H Respiratory Rate 18 Blood Pressure 109/61 Pulse Oximetry 95 Fraction of Inspired Oxygen 35 Oxygen Delivery Method Mechanical Ventilation Oxygen Flow Rate 35 Narrative Exam Narrative: Patient lying in bed, sedated. Objective Labs Result Diagrams: 01/28/19 04:50 01/28/19 04:50 Labs: Laboratory Results - last 24 hr 01/25/19 01/25/19 01/26/19 07:15 19:32 06:06 WBC RBC Hgb Hct MCV MCH MCHC RDW Plt Count Neut % (Auto) Lymph % (Auto) [place] % (Auto) Eos % (Auto) Baso % (Auto) Lymph # (Auto) [place] # (Auto) Baso # (Auto) Total Counted Seg Neutrophils % Band Neutrophils % Lymphocytes % (Manual) Atypical Lymphs % Monocytes % (Manual) Eosinophils % (Manual) Metamyelocytes % Myelocytes % Neutrophils # (Manual) Smudge Cells Toxic Granulation Toxic Vacuolation Dohle Bodies Plt Morphology Comment RBC Morphology Polychromasia Basophilic Stippling PT INR ABG pH 7.28 L* 7.35 ABG pCO2 34.8 L 31.5 L ABG pO2 77 L 84 ABG HCO3 16 L 17 L ABG Total CO2 17 L 18 L ABG O2 Saturation 93 L 96 ABG Base Excess -10.0 L -8.0 L FiO2 35 35 Sodium Potassium Chloride Carbon Dioxide BUN Creatinine Estimated GFR BUN/Creatinine Ratio Glucose Lactate Calcium Phosphorus Magnesium Total Bilirubin AST ALT Alkaline Phosphatase Total Protein Albumin Globulin Albumin/Globulin Ratio Crossmatch See Detail 01/26/19 01/26/19 01/26/19 23:10 23:10 23:10 WBC 8.2 RBC 4.09 Hgb 12.9 Hct 36.1 MCV 88.4 MCH 31.6 MCHC 35.7 RDW 13.2 Plt Count 149 L Neut % (Auto) Not Reportable Lymph % (Auto) Not Reportable [place] % (Auto) Not Reportable Eos % (Auto) Not Reportable Baso % (Auto) Not Reportable Lymph # (Auto) Not Reportable [place] # (Auto) Not Reportable Baso # (Auto) Not Reportable Total Counted 100 Seg Neutrophils % 39.0 D Band Neutrophils % 50.0 H Lymphocytes % (Manual) 4.0 L Atypical Lymphs % 1.0 H Monocytes % (Manual) 1.0 L Eosinophils % (Manual) 1.0 L Metamyelocytes % 3.0 H Myelocytes % 1.0 H Neutrophils # (Manual) 7298 H Smudge Cells 1+ H Toxic Granulation Present H Toxic Vacuolation Present H Dohle Bodies 2+ H Plt Morphology Comment RBC Morphology See below Polychromasia 1+ H Basophilic Stippling 1+ H PT INR ABG pH ABG pCO2 ABG pO2 ABG HCO3 ABG Total CO2 ABG O2 Saturation ABG Base Excess FiO2 Sodium 133 L Potassium 4.0 Chloride 105 Carbon Dioxide 23 BUN 12 Creatinine 0.70 Estimated GFR > 60.0 BUN/Creatinine Ratio 17.1 Glucose 114 H Lactate 2.1 Calcium 7.6 L Phosphorus 2.3 L D Magnesium Total Bilirubin AST ALT Alkaline Phosphatase Total Protein Albumin 2.4 L Globulin Albumin/Globulin Ratio Crossmatch 01/26/19 01/27/19 01/27/19 23:10 04:35 04:35 WBC 8.8 RBC 3.96 L Hgb 12.4 Hct 35.0 L MCV 88.3 MCH 31.4 MCHC 35.6 RDW 13.0 Plt Count 139 L Neut % (Auto) Not Reportable Lymph % (Auto) Not Reportable [place] % (Auto) Not Reportable Eos % (Auto) Not Reportable Baso % (Auto) Not Reportable Lymph # (Auto) Not Reportable [place] # (Auto) Not Reportable Baso # (Auto) Not Reportable Total Counted 100 Seg Neutrophils % 37.0 L Band Neutrophils % 55.0 H Lymphocytes % (Manual) 3.0 L Atypical Lymphs % Monocytes % (Manual) 1.0 L Eosinophils % (Manual) Metamyelocytes % 3.0 H Myelocytes % 1.0 H Neutrophils # (Manual) 8096 H Smudge Cells Toxic Granulation Present H Toxic Vacuolation Present H Dohle Bodies 2+ H Plt Morphology Comment RBC Morphology See below Polychromasia Basophilic Stippling PT 15.1 H D INR 1.3 ABG pH ABG pCO2 ABG pO2 ABG HCO3 ABG Total CO2 ABG O2 Saturation ABG Base Excess FiO2 Sodium Potassium Chloride Carbon Dioxide BUN Creatinine Estimated GFR BUN/Creatinine Ratio Glucose Lactate Calcium Phosphorus Magnesium 2.5 H Total Bilirubin AST ALT Alkaline Phosphatase Total Protein Albumin Globulin Albumin/Globulin Ratio Crossmatch 01/27/19 01/27/19 01/27/19 04:35 04:35 05:08 WBC RBC Hgb Hct MCV MCH MCHC RDW Plt Count Neut % (Auto) Lymph % (Auto) [place] % (Auto) Eos % (Auto) Baso % (Auto) Lymph # (Auto) [place] # (Auto) Baso # (Auto) Total Counted Seg Neutrophils % Band Neutrophils % Lymphocytes % (Manual) Atypical Lymphs % Monocytes % (Manual) Eosinophils % (Manual) Metamyelocytes % Myelocytes % Neutrophils # (Manual) Smudge Cells Toxic Granulation Toxic Vacuolation Dohle Bodies Plt Morphology Comment RBC Morphology Polychromasia Basophilic Stippling PT INR ABG pH 7.38 ABG pCO2 39.9 ABG pO2 92 ABG HCO3 24 ABG Total CO2 25 ABG O2 Saturation 97 ABG Base Excess -1.0 FiO2 0.35 Sodium 132 L Potassium 4.0 Chloride 104 Carbon Dioxide 25 BUN 13 Creatinine 0.70 Estimated GFR > 60.0 BUN/Creatinine Ratio 18.6 Glucose 110 H Lactate 1.9 Calcium 7.4 L Phosphorus 2.2 L Magnesium 2.7 H Total Bilirubin 0.8 AST 31 ALT 14 Alkaline Phosphatase 52 Total Protein 4.9 L Albumin 2.4 L Globulin 2.5 Albumin/Globulin Ratio 1.0 Crossmatch 01/27/19 08:15 WBC RBC Hgb Hct 30.3 L MCV MCH MCHC RDW Plt Count Neut % (Auto) Lymph % (Auto) [place] % (Auto) Eos % (Auto) Baso % (Auto) Lymph # (Auto) [place] # (Auto) Baso # (Auto) Total Counted Seg Neutrophils % Band Neutrophils % Lymphocytes % (Manual) Atypical Lymphs % Monocytes % (Manual) Eosinophils % (Manual) Metamyelocytes % Myelocytes % Neutrophils # (Manual) Smudge Cells Toxic Granulation Toxic Vacuolation Dohle Bodies Plt Morphology Comment RBC Morphology Polychromasia Basophilic Stippling PT INR ABG pH ABG pCO2 ABG pO2 ABG HCO3 ABG Total CO2 ABG O2 Saturation ABG Base Excess FiO2 Sodium Potassium Chloride Carbon Dioxide BUN Creatinine Estimated GFR BUN/Creatinine Ratio Glucose Lactate Calcium Phosphorus Magnesium Total Bilirubin AST ALT Alkaline Phosphatase Total Protein Albumin Globulin Albumin/Globulin Ratio Crossmatch Assessment & Plan Assessment & Plan narrative: This patient is a 33yo admitted with septic shock after an intraoperative bowel injury, POD#2 s/p exploratory laparotomy with end to end small bowel reanastomosis of a small bowel injury. The patient remains critically ill, though with decreased pressor requirements, improving labs, and improving vitals. The patient is for return to the OR this afternoon, with inspection for abscess and possible drainage, inspection of anastomosis, and possible fascial closure. Patient remains intubated, is on a low dose of Levophed. Patient continues Zosyn therapy. Appreciate assistance of Keo Weinberg and Carla in managing her postoperative septic shock and bowel injury. Quality VTE Deep Vein Thrombosis/Pulmonary Embolism Present on Admission: No
[2019-01-27] MEDS: NOREPINEPHRINE 4 MG in DEXTROSE 5% IN WATER 250 ML 7.6 ML IV (09:37)
[2019-01-27] MEDS: LORazepam 20 MG in SODIUM CHLORIDE 0.9% 100 ML 5.5 ML IV (09:42)
--- NOTE | 2019-01-27 10:53 | P.PN_ITS ---
Subjective Subjective Date Patient Seen: 01/27/19 Time Patient Seen: 08:30 Interval history: Sophie Verdin is a 33-year-old female with history of chronic low back pain, and possible PCOS who presented to the emergency room today with abdominal pain and emesis. She is status post laparoscopic left salpingoophorectomy on the morning of 01/24 for a large dermoid cyst, she underwent a diagnostic laparoscopy which revealed a small bowel perforation. She is now status post short-segment small bowel resection on 01/25 and admitted to the ICU. Medicine is consulted for assistance with management for septic shock and ventilator management. This morning she continues to improve as far as her septic shock. Yesterday she became quite awake and needed to be started on an Ativan infusion as she had been maxed out on her propofol. She is on minimal Levophed as of this morning and continues to clinically improve. Her tachycardia has improved this morning, as has her oxygen on blood gas. She remains on minimal vent settings. She is quite sedated this morning upon my exam, and did not respond. She is scheduled to undergo abdominal closure later this afternoon with general surgery. Exam Vital Signs (past 8 hours): - 01/27/19 03:00 01/27/19 03:15 01/27/19 03:30 Temperature 100.2 F H Pulse Rate 123 H 120 H 119 H Respiratory Rate 18 18 18 Blood Pressure 99/47 L 101/50 L 100/49 L Pulse Oximetry 97 97 97 01/27/19 03:34 01/27/19 03:45 01/27/19 04:00 Temperature 99.9 F H 99.7 F H Pulse Rate 119 H 117 H Respiratory Rate 18 18 Blood Pressure 94/52 L 94/50 L Pulse Oximetry 97 97 01/27/19 04:15 01/27/19 04:30 01/27/19 04:45 Temperature Pulse Rate 118 H 118 H 114 H Respiratory Rate 15 21 18 Blood Pressure 94/52 L 102/48 L 78/36 L Pulse Oximetry 97 96 96 01/27/19 05:00 01/27/19 05:30 01/27/19 05:50 Temperature 99.5 F 99.7 F H Pulse Rate 114 H 109 H 111 H Respiratory Rate 18 18 18 Blood Pressure 76/37 L 86/39 L 84/39 L Pulse Oximetry 96 96 97 01/27/19 06:00 01/27/19 06:16 01/27/19 06:32 Temperature 99.1 F 99.7 F H Pulse Rate 109 H 111 H Respiratory Rate 18 18 Blood Pressure 100/45 L 83/38 L Pulse Oximetry 98 98 01/27/19 06:46 01/27/19 07:00 01/27/19 08:00 Temperature 99.1 F 99.1 F Pulse Rate 108 H 110 H 113 H Respiratory Rate 19 18 Blood Pressure 78/39 L 86/43 L 106/69 Pulse Oximetry 18 L 98 99 01/27/19 09:00 01/27/19 10:00 Temperature 99.1 F 97.4 F L Pulse Rate 117 H 110 H Respiratory Rate 18 18 Blood Pressure 109/61 93/47 L Pulse Oximetry 95 96 Fraction of Inspired Oxygen 35 Oxygen Delivery Method Mechanical Ventilation Oxygen Flow Rate 35 Narrative Exam Narrative: GENERAL APPEARANCE: Obese female, improved color today, intubated and sedated SKIN: Inspection of the skin reveals no rashes, ulcerations or petechiae. HEENT: ETT in place, thin white secretions upon suction, oral mucosa is moist. NECK: Supple and symmetric. There was no thyroid enlargement, and no tenderness, or masses were felt. CHEST: Normal AP diameter and normal contour without any kyphoscoliosis. LUNGS: Auscultation of the lungs anteriorly revealed more prominent rales in her right middle lobe, and to a lesser extent on the left, however her upper lung sen are clear. CARDIOVASCULAR: Tachycardic and regular without murmurs rubs or gallops. ABDOMEN: open abdomen with suction dressing and 2 drains with serosanguineous output. Dressings c/d/i. MUSCULOSKELETAL: There were no effusions or joint swelling noted. EXTREMITIES: No cyanosis, clubbing or edema. NEUROLOGIC: Sedated, breathing over set breathing rate. Pupils are equally round and reactive. Objective Labs Result Diagrams: 01/27/19 08:15 01/27/19 04:35 Labs: Laboratory Results - last 24 hr 01/25/19 01/25/19 01/26/19 07:15 19:32 06:06 WBC RBC Hgb Hct MCV MCH MCHC RDW Plt Count Neut % (Auto) Lymph % (Auto) [place] % (Auto) Eos % (Auto) Baso % (Auto) Lymph # (Auto) [place] # (Auto) Baso # (Auto) Total Counted Seg Neutrophils % Band Neutrophils % Lymphocytes % (Manual) Atypical Lymphs % Monocytes % (Manual) Eosinophils % (Manual) Metamyelocytes % Myelocytes % Neutrophils # (Manual) Smudge Cells Toxic Granulation Toxic Vacuolation Dohle Bodies Plt Morphology Comment RBC Morphology Polychromasia Basophilic Stippling PT INR ABG pH 7.28 L* 7.35 ABG pCO2 34.8 L 31.5 L ABG pO2 77 L 84 ABG HCO3 16 L 17 L ABG Total CO2 17 L 18 L ABG O2 Saturation 93 L 96 ABG Base Excess -10.0 L -8.0 L FiO2 35 35 Sodium Potassium Chloride Carbon Dioxide BUN Creatinine Estimated GFR BUN/Creatinine Ratio Glucose Lactate Calcium Phosphorus Magnesium Total Bilirubin AST ALT Alkaline Phosphatase Total Protein Albumin Globulin Albumin/Globulin Ratio Crossmatch See Detail 01/26/19 01/26/19 01/26/19 23:10 23:10 23:10 WBC 8.2 RBC 4.09 Hgb 12.9 Hct 36.1 MCV 88.4 MCH 31.6 MCHC 35.7 RDW 13.2 Plt Count 149 L Neut % (Auto) Not Reportable Lymph % (Auto) Not Reportable [place] % (Auto) Not Reportable Eos % (Auto) Not Reportable Baso % (Auto) Not Reportable Lymph # (Auto) Not Reportable [place] # (Auto) Not Reportable Baso # (Auto) Not Reportable Total Counted 100 Seg Neutrophils % 39.0 D Band Neutrophils % 50.0 H Lymphocytes % (Manual) 4.0 L Atypical Lymphs % 1.0 H Monocytes % (Manual) 1.0 L Eosinophils % (Manual) 1.0 L Metamyelocytes % 3.0 H Myelocytes % 1.0 H Neutrophils # (Manual) 7298 H Smudge Cells 1+ H Toxic Granulation Present H Toxic Vacuolation Present H Dohle Bodies 2+ H Plt Morphology Comment RBC Morphology See below Polychromasia 1+ H Basophilic Stippling 1+ H PT INR ABG pH ABG pCO2 ABG pO2 ABG HCO3 ABG Total CO2 ABG O2 Saturation ABG Base Excess FiO2 Sodium 133 L Potassium 4.0 Chloride 105 Carbon Dioxide 23 BUN 12 Creatinine 0.70 Estimated GFR > 60.0 BUN/Creatinine Ratio 17.1 Glucose 114 H Lactate 2.1 Calcium 7.6 L Phosphorus 2.3 L D Magnesium Total Bilirubin AST ALT Alkaline Phosphatase Total Protein Albumin 2.4 L Globulin Albumin/Globulin Ratio Crossmatch 01/26/19 01/27/19 01/27/19 23:10 04:35 04:35 WBC 8.8 RBC 3.96 L Hgb 12.4 Hct 35.0 L MCV 88.3 MCH 31.4 MCHC 35.6 RDW 13.0 Plt Count 139 L Neut % (Auto) Not Reportable Lymph % (Auto) Not Reportable [place] % (Auto) Not Reportable Eos % (Auto) Not Reportable Baso % (Auto) Not Reportable Lymph # (Auto) Not Reportable [place] # (Auto) Not Reportable Baso # (Auto) Not Reportable Total Counted 100 Seg Neutrophils % 37.0 L Band Neutrophils % 55.0 H Lymphocytes % (Manual) 3.0 L Atypical Lymphs % Monocytes % (Manual) 1.0 L Eosinophils % (Manual) Metamyelocytes % 3.0 H Myelocytes % 1.0 H Neutrophils # (Manual) 8096 H Smudge Cells Toxic Granulation Present H Toxic Vacuolation Present H Dohle Bodies 2+ H Plt Morphology Comment RBC Morphology See below Polychromasia Basophilic Stippling PT 15.1 H D INR 1.3 ABG pH ABG pCO2 ABG pO2 ABG HCO3 ABG Total CO2 ABG O2 Saturation ABG Base Excess FiO2 Sodium Potassium Chloride Carbon Dioxide BUN Creatinine Estimated GFR BUN/Creatinine Ratio Glucose Lactate Calcium Phosphorus Magnesium 2.5 H Total Bilirubin AST ALT Alkaline Phosphatase Total Protein Albumin Globulin Albumin/Globulin Ratio Crossmatch 01/27/19 01/27/19 01/27/19 04:35 04:35 05:08 WBC RBC Hgb Hct MCV MCH MCHC RDW Plt Count Neut % (Auto) Lymph % (Auto) [place] % (Auto) Eos % (Auto) Baso % (Auto) Lymph # (Auto) [place] # (Auto) Baso # (Auto) Total Counted Seg Neutrophils % Band Neutrophils % Lymphocytes % (Manual) Atypical Lymphs % Monocytes % (Manual) Eosinophils % (Manual) Metamyelocytes % Myelocytes % Neutrophils # (Manual) Smudge Cells Toxic Granulation Toxic Vacuolation Dohle Bodies Plt Morphology Comment RBC Morphology Polychromasia Basophilic Stippling PT INR ABG pH 7.38 ABG pCO2 39.9 ABG pO2 92 ABG HCO3 24 ABG Total CO2 25 ABG O2 Saturation 97 ABG Base Excess -1.0 FiO2 0.35 Sodium 132 L Potassium 4.0 Chloride 104 Carbon Dioxide 25 BUN 13 Creatinine 0.70 Estimated GFR > 60.0 BUN/Creatinine Ratio 18.6 Glucose 110 H Lactate 1.9 Calcium 7.4 L Phosphorus 2.2 L Magnesium 2.7 H Total Bilirubin 0.8 AST 31 ALT 14 Alkaline Phosphatase 52 Total Protein 4.9 L Albumin 2.4 L Globulin 2.5 Albumin/Globulin Ratio 1.0 Crossmatch 01/27/19 08:15 WBC RBC Hgb Hct 30.3 L MCV MCH MCHC RDW Plt Count Neut % (Auto) Lymph % (Auto) [place] % (Auto) Eos % (Auto) Baso % (Auto) Lymph # (Auto) [place] # (Auto) Baso # (Auto) Total Counted Seg Neutrophils % Band Neutrophils % Lymphocytes % (Manual) Atypical Lymphs % Monocytes % (Manual) Eosinophils % (Manual) Metamyelocytes % Myelocytes % Neutrophils # (Manual) Smudge Cells Toxic Granulation Toxic Vacuolation Dohle Bodies Plt Morphology Comment RBC Morphology Polychromasia Basophilic Stippling PT INR ABG pH ABG pCO2 ABG pO2 ABG HCO3 ABG Total CO2 ABG O2 Saturation ABG Base Excess FiO2 Sodium Potassium Chloride Carbon Dioxide BUN Creatinine Estimated GFR BUN/Creatinine Ratio Glucose Lactate Calcium Phosphorus Magnesium Total Bilirubin AST ALT Alkaline Phosphatase Total Protein Albumin Globulin Albumin/Globulin Ratio Crossmatch Assessment & Plan Assessment & Plan narrative: Sophie Verdin is a 33-year-old female with history of chronic low back pain, and possible PCOS who presented to the emergency room today with abdominal pain and emesis. She is status post laparoscopic left salpingoophorectomy on the morning of 01/24 for a large dermoid cyst, she under went a diagnostic laparoscopy which revealed a small bowel perforation. She is now status post short-segment small bowel resection and admitted to the ICU. Medicine is consulted for assistance with management for septic shock and ventilator management. She still remains on pressor support but is improving today. She is planned to return to the OR today for abdominal closure. 1. Septic shock, present on admission, improving -secondary to bowel perforation and subsequent stool spillage into her abdomen. Patient was given antibiotics and was fluid resuscitated but her pressures remain low but are improving. She ultimately required vasopressin and Levophed but is now improving, on minimal Levophed which if she continues her current trend should be titrated off later today. -continue to wean from Levophed as able. -monitor drain output -chest x-ray read as left retrocardiac infiltrate versus atelectasis. However patient was urgently taken to operating room and had vomited prior. Her breath sounds are more coarse today. Continue to monitor for aspiration and patient's current antibiotics are covering any aspiration event. - repeat CXR today given change in lung exam (R rales are new). -continue Zosyn -continue fluid resuscitation, monitor drain output. -continue mechanical ventilation until improved hemodynamically. Continue propofol and prn morphine. -respiratory therapy eval and treat - UA negative for infection 2. Acute renal failure, present on admission, resolved- Baseline cr 0.6, on admission 1.2 from septic shock and hypovolemic. Cr now improved to 0.7. - continue care as noted above. 3. Acute hypoxemic respiratory failure secondary to sepsis, ABG on vent showing PF ratio of 202 initially and is slightly improved today to 260. Will continue to treat underling sepsis and optimize ventilatory status until hemodynamically improved. Possible aspiration given emesis and then subsequent intubation as well, however patient is on zosyn at this time for intra-abdominal source which will cover aspiration event. - continue blood gas in AM while intubated. - continue management of sepsis as noted above. - repeat CXR. 4. Anion gap metabolic acidosis, present on admission, resolved- secondary to septic shock and elevated lactate. Improved with treatement of above sepsis. 5. Hyponatremia, mild, acute -likely secondary to hypovolemia as evidence by UA which has high specific gravity. -continue fluid support for sepsis as noted above. 6. Coagulopathy - elevated INR and bilirubin likely related to sepsis and hypotension. Resolved. 7. Elevated glucose - may be reactive secondary to sepsis however given possible PCOS and obesity diabetes is a possibilty. - A1c will be unreliable given recent transfusion - FS q6 hr with corrective sliding scale - recommend outpatient A1c after approx. 90 days given transfusion. 8. Dehydration, acute, present on admission - secondary to nausea / vomiting and intra-abdominal spillage. Hg on admission was 19 (baseline of around 13). She will need continued IVF for management of sepsis as well as replacement of her abdominal losses given drains. 9. S/p Small bowel resection - complication of laparoscopic salpingoophorectomy. - Plan for return to the operating room this afternoon per general surgery for possible closure. - monitor drain output and replete as necessary. I spent 35 minutes providing critical care management this patient. This excludes time spent in performing separately billed procedures. Medicine will continue to follow this patient. Quality VTE Deep Vein Thrombosis/Pulmonary Embolism Present on Admission: No
--- NOTE | 2019-01-27 11:06 | DI.RAD.S_ITS ---
PROCEDURE: XR CHEST 1V INDICATIONS: intubated, increased rales in right lobe TECHNIQUE: One view of the chest was acquired. COMPARISON: [facility], CR, XR CHEST 1V, 01/26/2019, 6:02. FINDINGS: Surgical changes and devices: An endotracheal tube is positioned above the level of the adama by approximately 3-4 cm. A left-sided PICC line catheter is identified with the tip overlying the high superior vena cava. A nasogastric tube is seen extending below the diaphragm. Lungs and pleura: The aeration of the lungs is similar to the prior study with bibasilar opacities evident. The opacity at the left lung base obscures the diaphragm. No definite pneumothorax is appreciated. The lung volumes are present. Mediastinum: Mediastinal contours appear normal. The heart appears to be enlarged. Bones and chest wall: No suspicious bony lesions. Overlying soft tissues appear unremarkable. IMPRESSION: 1. Bibasilar opacities probably represent pleural effusions and associated atelectasis. However, superimposed pneumonia or aspiration is difficult to exclude. 2. Cardiomegaly. 3. Tubes and lines, as described. Dictated by: Dez Gibson M.D. on 01/27/2019 at 10:51 Approved by: Dez Gibson M.D. on 01/27/2019 at 10:52
[2019-01-27] MEDS: LORazepam 20 MG in SODIUM CHLORIDE 0.9% 100 ML IV (12:22)
--- NOTE | 2019-01-27 12:23 | CM.DPC ---
DCP Cont: Per MD, pt scheduled for surgery this afternoon for washout and closure and currently remains intubated and will remain so through surgery. Plan for sedation vacation tomorrow if pt remains stable towards hopeful extubation tomorrow. Per RN, pt more stable today and making medical progress and currently sleeping comfortably. Plan: DCP to follow closely tomorrow to determine if pt can be successfully extubated and to determine if pt will be safe for plan of home with family when medically stable. JASBIR Bullock
--- NOTE | 2019-01-27 13:59 | PM.PREOP ---
Pre-operative Note Interval Note History & Physical reviewed/Exam performed by Physician: Yes Changes to H&P: Yes H&P completed within 30 days and has changed as indicated here:: The patient has been on a ventilator for the last 2 days with propofol sedation. She has had spontaneous breathing whenever her sedation has been lightened. Her hematocrit has dropped significantly though her other labs have normalized. I'd do not believe this is from bleeding given the drainage from the peritoneal cavity is not blood tinged at all. Her midline is opened and sealed with an ioban drape. Her pulse has come down from the 150s to 1 teens. Blood pressure is low but stable and she is off pressors. Now seems to be the appropriate time to return her to the operating room and close her abdomen. This is been discussed with her including risks of bleeding infection hernia anastomotic breakdown.
--- NOTE | 2019-01-27 15:06 | PC.NURSE ---
PT MUCH MORE COMFORTABLE DURING THIS SHIFT WITH HR 107-126 BPM, ON VENT AT 35%, PROPOFOL FOR SEDATION, JPX 3 , MOELLER, NGT, 2 LUMEN PICC LINE, PERIPHERAL IV X 1, SCD'S, - LEFT FOR SURGERY FOR CLOSURE AT 1435 - FAMILY AT BEDSIDE
--- NOTE | 2019-01-27 17:08 | PM.OP.1 ---
Procedure & Clinicians Procedure: Exploration, irrigation, resection of small bowel with primary anastomosis and application of wound VAC after fascial closure Same procedure as scheduled: Yes Indications: Patient recently explored with intestinal contents throughout the peritoneal cavity from a small-bowel injury. She was intentionally left open and brought back to washer back out re-evaluate her anastomosis and close her abdomen Director Of Enterprise Architecture: Re Islas Anesthesia Type: General Operative Notes Findings: With pressure testing of the anastomosis there was a very small leak. I opted to resect and reanastomose Closure Type: non-primary Specimen(s): other (Small-bowel segment) Applied: device(s) (Wound VAC) Estimated Blood Loss (mL): 10 Blood products transfused: none Procedure in detail: The patient is placed supine on the operating room table. She was already intubated. I removed the outer plastic and the 5 lap sponges that had been left in the abdomen at her 1st operation. There were rather foul smelling. Her abdominal wall was washed with Hibiclens soap and then painted with Betadine. The wound was just irrigated. She was draped in the usual fashion. I remove the plastic over the intestine and examined it. The bowel was viable. I proceeded to carefully inspect the bowel breaking apart any loops and irrigating the abdomen copiously to drain any fluid collections. I examined the anastomosis and initially I felt it looked fine. However I decided to tested in so doing I was able to elicit a very small leak. Because the patient had been on pressors and there was concern over the blood flow at times to intestine because of that I decided to resect this segment do a new anastomosis. A RANDOLPH was stapled across and cut the intestine proximal and distal to the anastomosis. This was a short segment of bowel removed. The mesentery was divided and tied with 2 0 silk ties. A [id number] anastomosis was then created using a RANDOLPH followed by a T A to close the opened end. The linear a qlma-hx-govf anastomosis was examined and found to have no bleeding or defect prior to closure of the end. Silk was used to loosely reinforce the [id number] anastomosis. These were seromuscular silks. There was no significant mesenteric defect away the anastomosis was created. I copiously irrigated the abdomen again and suctioned free of fluid. The drain was placed back in the pelvis. Midline fascia was closed with interrupted 1. Maxon iachyp-tk-[id number] sutures. Wound VAC was placed after copiously irrigating the subcu. The patient was left intubated and returned to the ICU. She did not require pressors during the operation and her pulse hung around 100. Complications: none Post-operative Condition: stable Disposition: ICU
--- NOTE | 2019-01-27 17:15 | DI.RAD.S_ITS ---
PROCEDURE: XR CHEST 1V INDICATIONS: intubated. immediate post op, line placement TECHNIQUE: One view of the chest was acquired. COMPARISON: [facility], CR, XR CHEST FOR PICC 1V, 01/25/2019, 14:33. [facility], CR, XR CHEST 1V, 01/25/2019, 12:21. [facility], CR, XR CHEST 1V, 01/26/2019, 6:02. [facility], CR, XR CHEST 1V, 01/27/2019, 11:11. FINDINGS: Surgical changes and devices: The endotracheal tube tip projects 3.3 cm above adama. There is a nasogastric tube in the stomach. A left PICC is noted with the tip in the area of the SVC. Lungs and pleura: Bilateral airspace opacities and left basilar consolidation, increased compared to the last exam. No pleural effusions or pneumothorax. Mediastinum: Mediastinal contours appear normal. Heart size is normal. Bones and chest wall: No suspicious bony lesions. Overlying soft tissues appear unremarkable. IMPRESSION: 1. Tacking Stitch Remover, nasogastric tube and left PICC as described. 2. Increased bilateral airspace opacities and left basilar consolidation. Dictated by: Page Chris M.D. on 01/28/2019 at 12:09 Approved by: Page Chris M.D. on 01/28/2019 at 12:14
[2019-01-27] MEDS: PROPOFOL 1,000 MG/100 ML VIAL 13.336 MG IV (17:39)
--- NOTE | 2019-01-27 17:47 | PC.NURSE ---
Addendum entered by Vivienne Nieto R.N. 01/27/19 22:45: 2230 - Pt open eyes during care. Reoriented to place and situation. Educated to the need for restraints, released for care and replaced. Pt able to nod head/eye brows yes to question of pain. Morphine given. Propofol continues infusing at 20 mcg/kg/min. Ativan 0.5mg/hr. Hr 121, Sats 96%, vent settings remain unchanged. Temp 100.8 despite Tylenol suppository. BP 121/67. Original Note: 1645 - Pt returned from OR. RT available, adjusting vent settings per protocol. Per report from Anesthesiologist, Dilaudid given prior to transport, and paralytic agent approximately 1625. Pt currently not responsive to physical stimuli at this time. Wound vac in place 125cm of suction. One VIPUL bulb, compressed with scant serosang. drainage. OGT to re-established to LIS, blue port open per MD request. Red port on PICC line saved for TPN. Popofol infusion initiated at 20 mcg/kg/min, Ativan gtt returned to 0.5cc/hr, LR at 150cc. Rectal temp 99.9. Restraints replaced following repositioning. SCD's applied. Family at bedside.
[2019-01-27 19:23] LABS: Hematocrit 33.6 % (36-46); Hemoglobin 11.9 g/dL (12.0-16.0); Mean Corpuscular HGB Conc 35.2 % (30-36); Mean Corpuscular Hemoglobin 31.1 PG (26-34); Mean Corpuscular Volume 88.2 fL (80-100); Platelet Count 140 X10^3/uL (150-400); Red Blood Cell Count 3.82 X10^6/uL (4.0-5.2); Red Cell Distribution Width 13.1 % (11.6-14.8); White Blood Cell Count 9.4 X10^3/uL (4.5-11.0)
[2019-01-27 19:26] LABS: Add Manual Diff / Slide Review YES
[2019-01-27 19:34] LABS: Alanine Aminotransferase 17 IU/L (<35); Albumin 2.4 g/dL (3.5-5.0); Albumin Globulin Ratio 0.9 (1.0-2.8); Alkaline Phosphatase 70 U/L (38-126); Aspartate Aminotransferase 46 IU/L (14-36); BUN Creatinine Ratio 21.4 (6-22); Bilirubin Total 0.7 mg/dL (0.2-1.3); Blood Urea Nitrogen 15 mg/dL (7-17); Calcium 7.3 mg/dL (8.4-10.2); Carbon Dioxide 26 mmol/L (22-32); Chloride 102 mmol/L (98-107); Estimated Glomerular Filt Rate > 60.0 mL/min (>60); Globulin 2.6 g/dL (1.7-4.1); Glucose 103 mg/dL (70-100); HEMOLYSIS 23 (0-50); Potassium 3.6 mmol/L (3.4-5.1); Sodium 131 mmol/L (137-145)
[2019-01-27 19:53] LABS: Neutrophils Absolute Manual 9118 /uL (3000-5900); RBC Morphology Normal Morphology; Total Cells Counted 100
[2019-01-27] MEDS: DEXTROSE 5% WATER 500 ML 21 ML IV (22:19)
[2019-01-27] MEDS: LACTATED RINGERS 1,000 ML 175 ML IV (23:50)
[2019-01-28] VITALS (43 sets, daily range): BP systolic 104–140; BP diastolic 58–86; PULSE 103–130; RESP 19–124; TEMP 37.7–38.8; O2SAT 93–100; BMI 43.2
[2019-01-28] MEDS: FLUCONAZOLE 200 MG/100 ML PIGGYBACK 100 MG IV (00:49)
[2019-01-28] MEDS: ACETAMINOPHEN 650 MG SUPP PR ×3 (01:22→13:57)
[2019-01-28] MEDS: MORPHINE 2 MG/ML INJ IV ×5 (01:23→15:35)
[2019-01-28] MEDS: PROPOFOL 1,000 MG/100 ML VIAL 13.336 MG IV ×4 (01:41→19:29)
[2019-01-28] MEDS: PIPERACILLIN-TAZO 3.375 GM/50 ML FROZ.PIGGY IV ×4 (01:42→19:45)
[2019-01-28] MEDS: LACTATED RINGERS 1,000 ML 175 ML IV (02:39)
[2019-01-28 05:18] LABS: Hematocrit 32.1 % (36-46); Hemoglobin 11.1 g/dL (12.0-16.0); Mean Corpuscular HGB Conc 34.6 % (30-36); Mean Corpuscular Hemoglobin 30.5 PG (26-34); Mean Corpuscular Volume 88.2 fL (80-100); Platelet Count 142 X10^3/uL (150-400); Red Blood Cell Count 3.64 X10^6/uL (4.0-5.2); Red Cell Distribution Width 13.7 % (11.6-14.8); White Blood Cell Count 9.9 X10^3/uL (4.5-11.0)
[2019-01-28 05:19] LABS: Add Manual Diff / Slide Review YES
[2019-01-28 05:21] LABS: INR 1.1 (0.9-1.3); Prothrombin Time 12.8 SECONDS (10.1-12.7)
[2019-01-28 05:25] LABS: Magnesium 2.8 mg/dL (1.6-2.3)
[2019-01-28 05:27] LABS: HCO3 ABG 25 mmol/L (22-26); PCO2 ABG 41.6 mmHg (35-45); PO2 ABG 107 mmHg (80-100); TCO2 ABG 27 mmol/L (21-31); pH ABG 7.39 (7.35-7.45)
[2019-01-28 05:28] LABS: Fractionated Inspired Oxygen 40; Oxygen Saturation ABG 98 % (95-100)
[2019-01-28 07:05] LABS: Neutrophils Absolute Manual 8316 /uL (3000-5900); Total Cells Counted 100
[2019-01-28 07:06] LABS: Dohle Bodies 2+; Toxic Granulation Present
[2019-01-28 08:42] LABS: Alanine Aminotransferase 17 IU/L (<35); Albumin 2.3 g/dL (3.5-5.0); Albumin Globulin Ratio 0.9 (1.0-2.8); Alkaline Phosphatase 89 U/L (38-126); Aspartate Aminotransferase 58 IU/L (14-36); BUN Creatinine Ratio 18.6 (6-22); Bilirubin Total 0.7 mg/dL (0.2-1.3); Blood Urea Nitrogen 13 mg/dL (7-17); Calcium 7.4 mg/dL (8.4-10.2); Carbon Dioxide 26 mmol/L (22-32); Chloride 102 mmol/L (98-107); Estimated Glomerular Filt Rate > 60.0 mL/min (>60); Globulin 2.5 g/dL (1.7-4.1); Glucose 108 mg/dL (70-100); HEMOLYSIS < 15 (0-50); Potassium 3.3 mmol/L (3.4-5.1); Sodium 134 mmol/L (137-145); Total Protein 4.8 g/dL (6.3-8.2)
[2019-01-28] MEDS: PANTOPRAZOLE 40 MG VIAL IV (08:50)
[2019-01-28] MEDS: LACTATED RINGERS 1,000 ML 100 ML IV (08:50)
--- NOTE | 2019-01-28 08:56 | PM.PN.1 ---
Subjective Subjective Date Patient Seen: 01/28/19 Time Patient Seen: 08:56 Interval history: Patient appears overall improved today. Improved color, normal blood pressure without pressors, normalizing poles. Sedation is currently turned off the patient still sedated, per nurse discussion breathing trial this morning or early afternoon. Per nursing staff, fevers overnight, now resolved. Exam Vital Signs (past 8 hours): - 01/28/19 01:00 01/28/19 01:22 01/28/19 02:00 Temperature 101.3 F H 101.3 F H 102 F H Pulse Rate 116 H 130 H Respiratory Rate 20 32 H Blood Pressure 104/58 L 140/84 Pulse Oximetry 94 97 01/28/19 03:00 01/28/19 03:41 01/28/19 04:00 Temperature 101.5 F H 100.8 F H 100.6 F H Pulse Rate 118 H 110 H Respiratory Rate 20 Blood Pressure 115/61 113/64 Pulse Oximetry 97 01/28/19 05:00 01/28/19 05:27 01/28/19 06:00 Temperature 100.2 F H 100.2 F H 99.9 F H Pulse Rate 106 H 106 H Respiratory Rate 20 20 Blood Pressure 117/74 108/60 Pulse Oximetry 94 98 01/28/19 06:16 01/28/19 07:00 01/28/19 08:00 Temperature 99.9 F H 99.9 F H 99.9 F H Pulse Rate 105 H 110 H Respiratory Rate 20 21 Blood Pressure 118/63 116/70 Pulse Oximetry 100 100 Fraction of Inspired Oxygen 40 Oxygen Delivery Method Mechanical Ventilation Oxygen Flow Rate 40 Narrative Exam Narrative: Patient lying in bed, color improved. GI Inspection: obesity Other: Wound VAC in place and well applied with no leaks. No surrounding erythema. Per nursing staff, 50 cc of serosanguineous drainage per wound VAC overnight. Objective Labs Result Diagrams: 01/28/19 04:50 01/28/19 04:50 Labs: Laboratory Results - last 24 hr 01/27/19 01/27/19 01/27/19 05:07 19:05 19:05 WBC 9.4 RBC 3.82 L Hgb 11.9 L Hct 33.6 L MCV 88.2 MCH 31.1 MCHC 35.2 RDW 13.1 Plt Count 140 L Neut % (Auto) Not Reportable Lymph % (Auto) Not Reportable [place] % (Auto) Not Reportable Eos % (Auto) Not Reportable Baso % (Auto) Not Reportable Lymph # (Auto) Not Reportable [place] # (Auto) Not Reportable Baso # (Auto) Not Reportable Total Counted 100 Seg Neutrophils % 77.0 H D Band Neutrophils % 20.0 H Lymphocytes % (Manual) 1.0 L Monocytes % (Manual) 2.0 Metamyelocytes % Myelocytes % Neutrophils # (Manual) 9118 H Toxic Granulation Dohle Bodies RBC Morphology Normal morphology PT INR ABG pH 7.38 ABG pCO2 39.9 ABG pO2 92 ABG HCO3 24 ABG Total CO2 25 ABG O2 Saturation 97 ABG Base Excess -1.0 FiO2 0.35 Sodium 131 L Potassium 3.6 Chloride 102 Carbon Dioxide 26 BUN 15 Creatinine 0.70 Estimated GFR > 60.0 BUN/Creatinine Ratio 21.4 Glucose 103 H Calcium 7.3 L Phosphorus Magnesium Total Bilirubin 0.7 AST 46 H ALT 17 Alkaline Phosphatase 70 Total Protein 5.0 L Albumin 2.4 L Globulin 2.6 Albumin/Globulin Ratio 0.9 L 01/28/19 01/28/19 01/28/19 04:50 04:50 04:50 WBC 9.9 RBC 3.64 L Hgb 11.1 L Hct 32.1 L MCV 88.2 MCH 30.5 MCHC 34.6 RDW 13.7 Plt Count 142 L Neut % (Auto) Not Reportable Lymph % (Auto) Not Reportable [place] % (Auto) Not Reportable Eos % (Auto) Not Reportable Baso % (Auto) Not Reportable Lymph # (Auto) Not Reportable [place] # (Auto) Not Reportable Baso # (Auto) Not Reportable Total Counted 100 Seg Neutrophils % 72.0 H Band Neutrophils % 12.0 H Lymphocytes % (Manual) 5.0 L D Monocytes % (Manual) 5.0 Metamyelocytes % 3.0 H Myelocytes % 3.0 H Neutrophils # (Manual) 8316 H Toxic Granulation Present H Dohle Bodies 2+ H RBC Morphology See below PT 12.8 H INR 1.1 ABG pH ABG pCO2 ABG pO2 ABG HCO3 ABG Total CO2 ABG O2 Saturation ABG Base Excess FiO2 Sodium Potassium Chloride Carbon Dioxide BUN Creatinine Estimated GFR BUN/Creatinine Ratio Glucose Calcium Phosphorus 3.0 Magnesium 2.8 H Total Bilirubin AST ALT Alkaline Phosphatase Total Protein Albumin Globulin Albumin/Globulin Ratio 01/28/19 01/28/19 04:50 05:10 WBC RBC Hgb Hct MCV MCH MCHC RDW Plt Count Neut % (Auto) Lymph % (Auto) [place] % (Auto) Eos % (Auto) Baso % (Auto) Lymph # (Auto) [place] # (Auto) Baso # (Auto) Total Counted Seg Neutrophils % Band Neutrophils % Lymphocytes % (Manual) Monocytes % (Manual) Metamyelocytes % Myelocytes % Neutrophils # (Manual) Toxic Granulation Dohle Bodies RBC Morphology PT INR ABG pH 7.39 ABG pCO2 41.6 ABG pO2 107 H ABG HCO3 25 ABG Total CO2 27 ABG O2 Saturation 98 ABG Base Excess 1.0 FiO2 40 Sodium 134 L Potassium 3.3 L Chloride 102 Carbon Dioxide 26 BUN 13 Creatinine 0.70 Estimated GFR > 60.0 BUN/Creatinine Ratio 18.6 Glucose 108 H Calcium 7.4 L Phosphorus Magnesium Total Bilirubin 0.7 AST 58 H ALT 17 Alkaline Phosphatase 89 Total Protein 4.8 L Albumin 2.3 L Globulin 2.5 Albumin/Globulin Ratio 0.9 L Assessment & Plan Assessment & Plan narrative: This patient is a 33yo POD#3 s/p exploratory laparotomy with end to end small bowel reanastomosis of a small bowel injury, which occurred during a laparoscopic left salpingooophorectomy for a left ovarian dermoid cyst. She is now POD#1 s/p an exploratory laparotomy with abscess drainage and anastamosis revision. The patient remains critically ill, but no longer requires pressors, has normalizing labs and vital signs, and is overall clinically improving. She is for attempted extubation today per Dr. Weinberg. Appreciate assistance from Dr. Weinberg and Dr. Aguirre in management of her postoperative septic shock and bowel injury. Quality VTE Deep Vein Thrombosis/Pulmonary Embolism Present on Admission: No
[2019-01-28] MEDS: POTASSIUM CHLORIDE 40 MEQ in SODIUM CHLORIDE 0.9% 500 ML 130 ML IV (09:41)
--- NOTE | 2019-01-28 10:04 | DIET.PN ---
Dietary Progress Note Assessment: Ms. Verdin is a 33y F s/p washout and repair of small bowel perforation following laparoscopic left salpingooophorectomy for a left ovarian dermoid cyst. Pt is currently vented, not on pressors. Pt has dedicated access to start TPN when deemed appropriate per Carla for gut rest following open abdomen surgeries. Pt last meal 5 d ago reducing risk for refeeding syndrome, however, please start pt @ 25mL/hr r/t ICU status. Continuous central TPN Clinimix 5/20 starting @ 25mL/h increasing by 10mL q6h as tolerated until goal reached providing 1530kcal, 63g PRO adding 250mL IVFE 20% on M, W, F. 1. Please check phosphorus for first 3d while vented as weaning failure associated c low phos. 2. consider supplementing selenium 500mcg/d r/t sepsis 3. Please note Clinimix ready made TPN does not supply pt's ideal protein needs, however, increasing kcals not indicated r/t pt's BMI and vented status. EERs: 1500kcal 11-14kcal/kg (obese vented); 118g PRO 2g/kg IBW, 30mL/kg fluids HT: 167.6cm WT: 121.6cm BMI: 43.3 MNA: 14 Tr: 14 Nutrition Diagnosis: Altered GI function r/t dx (small bowel perforation) aeb pt last meal was 6d ago, pt s/p open abdominal surgery and repair, pt vented, pt BMI 43.3. Interventions: Continuous central TPN Clinimix 5/20 starting @ 25mL/h increasing by 10mL q6h as tolerated until goal reached providing 1530kcal, 63g PRO adding 250mL IVFE 20% on M, W, F. 1. Please check phosphorus for first 3d while vented as weaning failure associated c low phos. 2. consider supplementing selenium 500mcg/d r/t sepsis Diet Order: NPO vented EER: 1500kcal 11-14kcal/kg (obese vented); 118g PRO 2g/kg IBW, 30mL/kg fluids Monitoring/Evaluations: TPN tolerance, diet advancement: first foods should be PRO rich to support healing
[2019-01-28 12:12] LABS: PCO2 ABG 37.8 mmHg (35-45); PO2 ABG 55 mmHg (80-100); pH ABG 7.42 (7.35-7.45)
[2019-01-28 12:13] LABS: Fractionated Inspired Oxygen 0.35; HCO3 ABG 24 mmol/L (22-26); Oxygen Saturation ABG 89 % (95-100); TCO2 ABG 26 mmol/L (21-31)
[2019-01-28] MEDS: LORazepam 20 MG in SODIUM CHLORIDE 0.9% 100 ML IV (12:36)
--- NOTE | 2019-01-28 14:49 | SLP.IPNOTE ---
Status on worksheet has order listed for evaluation. No order listed in pt's fill under orders. Nsg reported that pt is intubated and not appropriate for evaluation at this time.
--- NOTE | 2019-01-28 15:06 | PC.NURSE ---
Day Shift Note Pt sedated to RASS of -2 on AM assessment, Ativan gtt at 0.5 mg/hr and propofol at 20 mcg/kg/min. Sedation vacation started at 0815, pt slow to wake up to participate in breathing trial. CPAP trial started at 1055 once pt opening eyes and following commands. Able to answer yes or no questions while sedation off. RR in the 30s through CPAP trial and increased to 40s toward the end with SpO2 decreasing to 83%. Off trial at 1145. ST in the 100-120 bpm range. OG tube to LIS. Wound vac in place to abdomen C/D/I - cont. suction at 125 mmHg. VIPUL drain to right abdomen compressed and patent. Byers in place and draining clear yellow urine. Turning every 2 hrs. Bed alarm on.
--- NOTE | 2019-01-28 16:33 | PM.PN.1 ---
Subjective Subjective Date Patient Seen: 01/28/19 Time Patient Seen: 16:33 Interval history: Sophie Verdin is a 33-year-old female with history of chronic low back pain, and possible PCOS who presented to the emergency room today with abdominal pain and emesis. She is status post laparoscopic left salpingoophorectomy on the morning of 01/24 for a large dermoid cyst, she underwent a diagnostic laparoscopy which revealed a small bowel perforation. She is now status post short-segment small bowel resection on 01/25 and abdominal closure on 01/27 and admitted to the ICU. Medicine is consulted for assistance with management for septic shock and ventilator management. This morning she is off of pressors. Sedation vacation was done followed by a 1/2 hour breathing trial. She became tachypneic on pressure support, and her gas at the end of the trial showed a PO2 of 55. She was placed back on sedation, as she did not appear ready for extubation today. She was started on TPN per general surgery. Exam Vital Signs (past 8 hours): - 01/28/19 09:00 01/28/19 10:00 01/28/19 10:56 Temperature 99.9 F H 99.9 F H Pulse Rate 109 H 114 H Respiratory Rate 20 22 Blood Pressure 123/66 124/74 Pulse Oximetry 96 96 93 01/28/19 12:00 01/28/19 13:00 01/28/19 13:57 Temperature 100.2 F H 100.4 F H 100.6 F H Pulse Rate 124 H 114 H Respiratory Rate 31 H 19 Blood Pressure 122/74 119/71 Pulse Oximetry 94 97 01/28/19 14:00 01/28/19 15:00 01/28/19 15:01 Temperature 100.4 F H 100.8 F H 100.8 F H Pulse Rate 113 H 120 H Respiratory Rate 124 H Blood Pressure 127/83 127/71 Pulse Oximetry 100 Fraction of Inspired Oxygen 40 Oxygen Delivery Method Mechanical Ventilation Oxygen Flow Rate 40 Narrative Exam Narrative: GENERAL APPEARANCE: Obese female, improved pallor, intubated, opens eyes to voice. SKIN: Inspection of the skin reveals no rashes, ulcerations or petechiae. HEENT: ETT in place, no secretions, oral mucosa appears dry but improved. NECK: Supple and symmetric. There was no thyroid enlargement, and no tenderness, or masses were felt. CHEST: Normal AP diameter and normal contour without any kyphoscoliosis. LUNGS: Auscultation of the lungs anteriorly revealed coarse breath sounds on the right, left lung clear to auscultation. CARDIOVASCULAR: Tachycardic and regular without murmurs rubs or gallops. ABDOMEN: abdomen with wound VAC. Dressings c/d/i. MUSCULOSKELETAL: There were no effusions noted. EXTREMITIES: No cyanosis, clubbing. There is slight peripheral nonpitting edema bilaterally, minimal to trace. NEUROLOGIC: Lightly sedated but opens eyes to voice, follows commands, moving all extremities equally. Objective Labs Result Diagrams: 01/28/19 04:50 01/28/19 04:50 Labs: Laboratory Results - last 24 hr 01/27/19 01/27/19 01/28/19 19:05 19:05 04:50 WBC 9.4 9.9 RBC 3.82 L 3.64 L Hgb 11.9 L 11.1 L Hct 33.6 L 32.1 L MCV 88.2 88.2 MCH 31.1 30.5 MCHC 35.2 34.6 RDW 13.1 13.7 Plt Count 140 L 142 L Neut % (Auto) Not Reportable Not Reportable Lymph % (Auto) Not Reportable Not Reportable [place] % (Auto) Not Reportable Not Reportable Eos % (Auto) Not Reportable Not Reportable Baso % (Auto) Not Reportable Not Reportable Lymph # (Auto) Not Reportable Not Reportable [place] # (Auto) Not Reportable Not Reportable Baso # (Auto) Not Reportable Not Reportable Total Counted 100 100 Seg Neutrophils % 77.0 H D 72.0 H Band Neutrophils % 20.0 H 12.0 H Lymphocytes % (Manual) 1.0 L 5.0 L D Monocytes % (Manual) 2.0 5.0 Metamyelocytes % 3.0 H Myelocytes % 3.0 H Neutrophils # (Manual) 9118 H 8316 H Toxic Granulation Present H Dohle Bodies 2+ H RBC Morphology Normal morphology See below PT INR ABG pH ABG pCO2 ABG pO2 ABG HCO3 ABG Total CO2 ABG O2 Saturation ABG Base Excess FiO2 Sodium 131 L Potassium 3.6 Chloride 102 Carbon Dioxide 26 BUN 15 Creatinine 0.70 Estimated GFR > 60.0 BUN/Creatinine Ratio 21.4 Glucose 103 H Calcium 7.3 L Phosphorus Magnesium Total Bilirubin 0.7 AST 46 H ALT 17 Alkaline Phosphatase 70 Total Protein 5.0 L Albumin 2.4 L Globulin 2.6 Albumin/Globulin Ratio 0.9 L 01/28/19 01/28/19 01/28/19 04:50 04:50 04:50 WBC RBC Hgb Hct MCV MCH MCHC RDW Plt Count Neut % (Auto) Lymph % (Auto) [place] % (Auto) Eos % (Auto) Baso % (Auto) Lymph # (Auto) [place] # (Auto) Baso # (Auto) Total Counted Seg Neutrophils % Band Neutrophils % Lymphocytes % (Manual) Monocytes % (Manual) Metamyelocytes % Myelocytes % Neutrophils # (Manual) Toxic Granulation Dohle Bodies RBC Morphology PT 12.8 H INR 1.1 ABG pH ABG pCO2 ABG pO2 ABG HCO3 ABG Total CO2 ABG O2 Saturation ABG Base Excess FiO2 Sodium 134 L Potassium 3.3 L Chloride 102 Carbon Dioxide 26 BUN 13 Creatinine 0.70 Estimated GFR > 60.0 BUN/Creatinine Ratio 18.6 Glucose 108 H Calcium 7.4 L Phosphorus 3.0 Magnesium 2.8 H Total Bilirubin 0.7 AST 58 H ALT 17 Alkaline Phosphatase 89 Total Protein 4.8 L Albumin 2.3 L Globulin 2.5 Albumin/Globulin Ratio 0.9 L 01/28/19 01/28/19 05:08 11:48 WBC RBC Hgb Hct MCV MCH MCHC RDW Plt Count Neut % (Auto) Lymph % (Auto) [place] % (Auto) Eos % (Auto) Baso % (Auto) Lymph # (Auto) [place] # (Auto) Baso # (Auto) Total Counted Seg Neutrophils % Band Neutrophils % Lymphocytes % (Manual) Monocytes % (Manual) Metamyelocytes % Myelocytes % Neutrophils # (Manual) Toxic Granulation Dohle Bodies RBC Morphology PT INR ABG pH 7.39 7.42 ABG pCO2 41.6 37.8 ABG pO2 107 H 55 L ABG HCO3 25 24 ABG Total CO2 27 26 ABG O2 Saturation 98 89 L ABG Base Excess 1.0 0.0 FiO2 40 0.35 Sodium Potassium Chloride Carbon Dioxide BUN Creatinine Estimated GFR BUN/Creatinine Ratio Glucose Calcium Phosphorus Magnesium Total Bilirubin AST ALT Alkaline Phosphatase Total Protein Albumin Globulin Albumin/Globulin Ratio Assessment & Plan Assessment & Plan narrative: Sophie Verdin is a 33-year-old female with history of chronic low back pain, and possible PCOS who presented to the emergency room today with abdominal pain and emesis. She is status post laparoscopic left salpingoophorectomy on the morning of 01/24 for a large dermoid cyst, she underwent a diagnostic laparoscopy which revealed a small bowel perforation. She is now status post short-segment small bowel resection and subsequent abdominal closure and admitted to the ICU. Medicine is consulted for assistance with management for septic shock and ventilator management. She is now off pressor support and continues to improve. She failed a spontaneous breathing trial today. Will continue daily sedation vacations and breathing trials until she is able to be extubated. 1. Septic shock, present on admission, resolved -secondary to bowel perforation and subsequent stool spillage into her abdomen. Patient was given antibiotics and was fluid resuscitated. She ultimately required vasopressin and Levophed but is now off pressors. She has been spiking fevers again, these may be reactive to surgery or secondary to likely aspiration. -chest x-ray read as left retrocardiac infiltrate versus atelectasis. However patient was urgently taken to operating room and had vomited prior. Her breath sounds remain coarse on the right. Repeat chest x-ray showed a worsening infiltrate. -continue Zosyn -attempt daily sedation vacation and breathing trial in attempts to possibly extubate. -respiratory therapy eval and treat - UA negative for infection 2. Acute renal failure, present on admission, resolved- Baseline cr 0.6, on admission 1.2 from septic shock and hypovolemic. Cr now improved to 0.7. - continue care as noted above. 3. Acute hypoxemic respiratory failure secondary to sepsis, ABG on vent showing PF ratio of 202 initially and is slightly improved today. Will continue to treat underling sepsis and optimize ventilatory status until hemodynamically improved. Possible aspiration given emesis and then subsequent intubation as well, however patient is on zosyn at this time for intra-abdominal source which will cover aspiration event. - continue blood gas in AM while intubated. - continue management of sepsis as noted above. 4. Probable aspiration. Patient with continued fevers, chest x-ray showing opacity she remains on Zosyn. 5. Anion gap metabolic acidosis, present on admission, resolved- secondary to septic shock and elevated lactate. Improved with treatement of above sepsis. 6. Hyponatremia, mild, acute -likely secondary to hypovolemia as evidence by UA which has high specific gravity. -continue fluid support for sepsis as noted above. 7. Coagulopathy - elevated INR and bilirubin likely related to sepsis and hypotension. Resolved. 8. Elevated glucose - may be reactive secondary to sepsis however given possible PCOS and obesity diabetes is a possibilty. - A1c will be unreliable given recent transfusion - FS q6 hr with corrective sliding scale - recommend outpatient A1c after approx. 90 days given transfusion. 9. Dehydration, acute, present on admission, improved - secondary to nausea / vomiting and intra-abdominal spillage. Hg on admission was 19 (baseline of around 13). She will need continued IVF for management of sepsis as well as replacement of her abdominal losses given drains. 10. S/p Small bowel resection - complication of laparoscopic salpingoophorectomy. -now status post abdominal closure on 01/27 -now started on TPN I spent 35 minutes providing critical care management this patient. This excludes time spent in performing separately billed procedures. Medicine will continue to follow this patient. Quality VTE Deep Vein Thrombosis/Pulmonary Embolism Present on Admission: No
--- NOTE | 2019-01-28 17:15 | DI.RAD.S_ITS ---
PROCEDURE: XR CHEST 1V INDICATIONS: intubated. status post surgery. line placement TECHNIQUE: One view of the chest was acquired. COMPARISON: [facility], CR, XR CHEST 1V, 01/27/2019, 17:22. FINDINGS: Surgical changes and devices: The tip of the ET tube is 2.8 cm above adama. There is a catheter at midline with the tip above the GE junction, probably the NG tube. Lungs and pleura: Bilateral airspace opacities consistent with pulmonary edema or bilateral pneumonia. No pleural effusions or pneumothorax. Mediastinum: Mediastinal contours appear normal. Heart size is normal. Bones and chest wall: No suspicious bony lesions. Overlying soft tissues appear unremarkable. IMPRESSION: 1. Endotracheal tube tip is 2.8 cm above the adama. 2. The tip of the NG tube is above the GE junction. Please confirm desired position and repositioning if clinically indicated. 3. Bilateral airspace opacities compatible with pulmonary edema or bilateral pneumonia. Dictated by: Page Chris M.D. on 01/28/2019 at 17:47 Approved by: Page Chris M.D. on 01/28/2019 at 17:50
--- NOTE | 2019-01-28 17:30 | P.PN_ITS ---
Subjective Subjective Date Patient Seen: 01/28/19 Time Patient Seen: 17:31 Interval history: The patient remains on a ventilator. She had a trial earlier today to see if she was able to be extubated after about 45 minutes she became hypoxic and it was decided to place her back on ventilator. Will try again tomorrow. Exam Vital Signs (past 8 hours): - 01/28/19 10:00 01/28/19 10:56 01/28/19 12:00 Temperature 99.9 F H 100.2 F H Pulse Rate 114 H 124 H Respiratory Rate 22 31 H Blood Pressure 124/74 122/74 Pulse Oximetry 96 93 94 01/28/19 13:00 01/28/19 13:57 01/28/19 14:00 Temperature 100.4 F H 100.6 F H 100.4 F H Pulse Rate 114 H 113 H Respiratory Rate 19 124 H Blood Pressure 119/71 127/83 Pulse Oximetry 97 100 01/28/19 15:00 01/28/19 15:01 Temperature 100.8 F H 100.8 F H Pulse Rate 120 H Respiratory Rate Blood Pressure 127/71 Pulse Oximetry Fraction of Inspired Oxygen 40 Oxygen Delivery Method Mechanical Ventilation Oxygen Flow Rate 40 Narrative Exam Narrative: The patient has maintained her blood pressure all day without pressors. Her pulse rate is mostly been around the low 100s but it has creep up right now and her temperature is began to rise. She was hypokalemic earlier and was given potassium. Her lungs she has course rales in the bases there clear anteriorly heart regular rate and rhythm rapid wound VAC intact and her abdomen. Her temperatures are all rectal temps therefore her temp is not particularly elevated yet though it was last night. Objective Labs Result Diagrams: 01/28/19 04:50 01/28/19 04:50 Labs: Laboratory Results - last 24 hr 01/27/19 01/27/19 01/28/19 19:05 19:05 04:50 WBC 9.4 9.9 RBC 3.82 L 3.64 L Hgb 11.9 L 11.1 L Hct 33.6 L 32.1 L MCV 88.2 88.2 MCH 31.1 30.5 MCHC 35.2 34.6 RDW 13.1 13.7 Plt Count 140 L 142 L Neut % (Auto) Not Reportable Not Reportable Lymph % (Auto) Not Reportable Not Reportable [place] % (Auto) Not Reportable Not Reportable Eos % (Auto) Not Reportable Not Reportable Baso % (Auto) Not Reportable Not Reportable Lymph # (Auto) Not Reportable Not Reportable [place] # (Auto) Not Reportable Not Reportable Baso # (Auto) Not Reportable Not Reportable Total Counted 100 100 Seg Neutrophils % 77.0 H D 72.0 H Band Neutrophils % 20.0 H 12.0 H Lymphocytes % (Manual) 1.0 L 5.0 L D Monocytes % (Manual) 2.0 5.0 Metamyelocytes % 3.0 H Myelocytes % 3.0 H Neutrophils # (Manual) 9118 H 8316 H Toxic Granulation Present H Dohle Bodies 2+ H RBC Morphology Normal morphology See below PT INR ABG pH ABG pCO2 ABG pO2 ABG HCO3 ABG Total CO2 ABG O2 Saturation ABG Base Excess FiO2 Sodium 131 L Potassium 3.6 Chloride 102 Carbon Dioxide 26 BUN 15 Creatinine 0.70 Estimated GFR > 60.0 BUN/Creatinine Ratio 21.4 Glucose 103 H Calcium 7.3 L Phosphorus Magnesium Total Bilirubin 0.7 AST 46 H ALT 17 Alkaline Phosphatase 70 Total Protein 5.0 L Albumin 2.4 L Globulin 2.6 Albumin/Globulin Ratio 0.9 L 01/28/19 01/28/19 01/28/19 04:50 04:50 04:50 WBC RBC Hgb Hct MCV MCH MCHC RDW Plt Count Neut % (Auto) Lymph % (Auto) [place] % (Auto) Eos % (Auto) Baso % (Auto) Lymph # (Auto) [place] # (Auto) Baso # (Auto) Total Counted Seg Neutrophils % Band Neutrophils % Lymphocytes % (Manual) Monocytes % (Manual) Metamyelocytes % Myelocytes % Neutrophils # (Manual) Toxic Granulation Dohle Bodies RBC Morphology PT 12.8 H INR 1.1 ABG pH ABG pCO2 ABG pO2 ABG HCO3 ABG Total CO2 ABG O2 Saturation ABG Base Excess FiO2 Sodium 134 L Potassium 3.3 L Chloride 102 Carbon Dioxide 26 BUN 13 Creatinine 0.70 Estimated GFR > 60.0 BUN/Creatinine Ratio 18.6 Glucose 108 H Calcium 7.4 L Phosphorus 3.0 Magnesium 2.8 H Total Bilirubin 0.7 AST 58 H ALT 17 Alkaline Phosphatase 89 Total Protein 4.8 L Albumin 2.3 L Globulin 2.5 Albumin/Globulin Ratio 0.9 L 01/28/19 01/28/19 05:08 11:48 WBC RBC Hgb Hct MCV MCH MCHC RDW Plt Count Neut % (Auto) Lymph % (Auto) [place] % (Auto) Eos % (Auto) Baso % (Auto) Lymph # (Auto) [place] # (Auto) Baso # (Auto) Total Counted Seg Neutrophils % Band Neutrophils % Lymphocytes % (Manual) Monocytes % (Manual) Metamyelocytes % Myelocytes % Neutrophils # (Manual) Toxic Granulation Dohle Bodies RBC Morphology PT INR ABG pH 7.39 7.42 ABG pCO2 41.6 37.8 ABG pO2 107 H 55 L ABG HCO3 25 24 ABG Total CO2 27 26 ABG O2 Saturation 98 89 L ABG Base Excess 1.0 0.0 FiO2 40 0.35 Sodium Potassium Chloride Carbon Dioxide BUN Creatinine Estimated GFR BUN/Creatinine Ratio Glucose Calcium Phosphorus Magnesium Total Bilirubin AST ALT Alkaline Phosphatase Total Protein Albumin Globulin Albumin/Globulin Ratio Assessment & Plan Post-op Postoperative Procedures: Procedures Operation Date: 01/25/19 08:15 <No data on this case meets the specified criteria> Operation Date: 01/25/19 08:25 Actual Procedures Side Surgeon p Laparoscopy, Diagnostic, MOLD MACHINE OPERATOR/ resection of small portion of small bowel and primary anastamosis Re Islas MD Operation Date: 01/27/19 17:15 Actual Procedures Side Surgeon p Exploratory Laparotomy GEN/resection with primary anastomosis, washout/closed abd Dayo Aguirre MD Postoperative day: 1 Postoperative status narrative: Patient is postop day 1 of re-exploration resection primary anastomosis and closure of her abdomen. Cultures are growing gram-negative pako id is yet to follow. She is on broad-spectrum coverage which should give good coverage to most g negatives. I will add Toradol for pain relief without sedation but also may help her fever. She is beginning to become tachycardic again I think is related to her fever. Could also be related to the fact that her x-ray show appear to be showing increased fluid in her lungs along with probable infiltrate. Postoperative plan narrative: Hyperkalemia corrected with IV infusion of potassium. Will start TPN later today. I do not expect her gut to be usable for at least 7-10 days. Peritonitis acute: Existed preoperatively due to spillage of intestinal contents and is certainly present postoperatively. Gram-negative bacteria in the peritoneal cavity this is anticipated. I weight id of the pathogen and will adapt antibiotics if the present ones are not cover ing it. Given the nature of spillage of small bowel contents there is likely yeast and fungal I in the peritoneal cavity as well cultures have not yet grown it but will continue to treat with Diflucan empirically Patient's mother reports that morphine as never been a very effective pain reliever for her I switched her to Dilaudid. She is urinating over 100 cc an hour. Part of her tachycardia may be that she is now mobilizing her 3rd spaced fluid. Will give her Lasix and see what it does to see if this improves her tachycardia and respiratory status. Time Spent With Patient Time with patient: 15-24 minutes Quality VTE Deep Vein Thrombosis/Pulmonary Embolism Present on Admission: No
[2019-01-28] MEDS: HYDROMORPHONE 2 MG INJ 1 MG IV ×2 (17:56→21:32)
[2019-01-28] MEDS: KETOROLAC 30 MG/ML VIAL IV (18:01)
[2019-01-28] MEDS: FUROSEMIDE 20 MG/2 ML VIAL IV (18:03)
[2019-01-28] MEDS: AA 5 %/CALCIUM/LYTES/DEXT 20 % 1,000 ML with MULTIVITAMIN 10 ML, TRACE ELEMENTS 1 ML, I... 42.254 ML IV (18:35)
[2019-01-28] MEDS: FAT EMULSIONS 50 GM/250 ML EMULSION IV (18:36)
[2019-01-28 22:19] LABS: Hematocrit 30.9 % (36-46); Mean Corpuscular HGB Conc 35.5 % (30-36); Mean Corpuscular Hemoglobin 31.4 PG (26-34); Mean Corpuscular Volume 88.4 fL (80-100); Platelet Count 139 X10^3/uL (150-400); Red Blood Cell Count 3.49 X10^6/uL (4.0-5.2); Red Cell Distribution Width 13.5 % (11.6-14.8); White Blood Cell Count 8.1 X10^3/uL (4.5-11.0)
[2019-01-28 22:22] LABS: Add Manual Diff / Slide Review YES
[2019-01-28 22:31] LABS: Alanine Aminotransferase 20 IU/L (<35); Albumin 2.4 g/dL (3.5-5.0); Albumin Globulin Ratio 0.9 (1.0-2.8); Alkaline Phosphatase 93 U/L (38-126); Aspartate Aminotransferase 61 IU/L (14-36); BUN Creatinine Ratio 21.7 (6-22); Bilirubin Total 0.7 mg/dL (0.2-1.3); Blood Urea Nitrogen 13 mg/dL (7-17); Calcium 7.2 mg/dL (8.4-10.2); Carbon Dioxide 28 mmol/L (22-32); Chloride 102 mmol/L (98-107); Estimated Glomerular Filt Rate > 60.0 mL/min (>60); Globulin 2.7 g/dL (1.7-4.1); Glucose 133 mg/dL (70-100); HEMOLYSIS 15 (0-50); Sodium 134 mmol/L (137-145); Total Protein 5.1 g/dL (6.3-8.2)
[2019-01-28 22:36] LABS: Neutrophils Absolute Manual 6642 /uL (3000-5900); Total Cells Counted 100
[2019-01-28 22:37] LABS: Platelet Estimate Decreased on smear; RBC Morphology Normal Morphology
[2019-01-29] VITALS (48 sets, daily range): BP systolic 99–166; BP diastolic 48–101; PULSE 106–127; RESP 20–42; TEMP 38.1–38.9; O2SAT 91–118
[2019-01-29] MEDS: FLUCONAZOLE 200 MG/100 ML PIGGYBACK 100 MG IV (00:13)
[2019-01-29] MEDS: KETOROLAC 15 MG/ML VIAL IV ×4 (00:50→17:23)
[2019-01-29] MEDS: HYDROMORPHONE 2 MG INJ 1 MG IV ×5 (01:30→15:40)
[2019-01-29] MEDS: PIPERACILLIN-TAZO 3.375 GM/50 ML FROZ.PIGGY IV ×2 (01:42→06:49)
[2019-01-29] MEDS: PROPOFOL 1,000 MG/100 ML VIAL 13.336 MG IV ×3 (02:09→12:40)
[2019-01-29] MEDS: POTASSIUM CHLORIDE 40 MEQ in SODIUM CHLORIDE 0.9% 500 ML 130 ML IV ×2 (02:15→19:18)
--- NOTE | 2019-01-29 03:47 | PC.NURSE ---
Addendum entered by Romelia Haynes R.N. 01/29/19 05:55: Small amount of red drainage noted on leg and around kramer with carina care. Pt tolerating repositioning to back with O2 sats 95-97%. Minimal clear to white secretions per ETT with suctioning. Pt medicated with Tylenol suppository for Temp 101.1 rectally. Original Note: 0230 Pt repositioned to L side. Pt opens eyes briefly. Pt suctioned per ETT pre and post repositioning. Pt desating to 91% initially with repositioning. Abd with wound vac intact and some redness noted just above superior portion of wound vac. Bt+. OG tube patent to LIS. Air injected tp blue port. Gastric contents noted in tubing only. Kramer draining clear Ashley urine. Lungs diminished posteriorly and clear anteriorly. O2 sats recovering to 94% when pt allowed to rest. ETT suctioned for minimal amount of secretions with pt coughing.
[2019-01-29] MEDS: ACETAMINOPHEN 650 MG SUPP PR ×3 (05:08→21:33)
[2019-01-29 05:49] LABS: Fractionated Inspired Oxygen 0.35; HCO3 ABG 26 mmol/L (22-26); Oxygen Saturation ABG 96 % (95-100); PCO2 ABG 42.7 mmHg (35-45); PO2 ABG 80 mmHg (80-100); TCO2 ABG 28 mmol/L (21-31)
[2019-01-29] MEDS: INSULIN ASPART 100 UNIT/ML INSULN PEN SUBCUT ×2 (06:47→12:42)
--- NOTE | 2019-01-29 08:19 | P.PN_ITS ---
Subjective Subjective Date Patient Seen: 01/29/19 Time Patient Seen: 07:50 Interval history: Patient overall appears improved, remains intubated after failing breathing trial yesterday. Patient no longer requiring pressors. Patient is spiking fevers, per Dr. Weinberg suspect aspiration pneumonia in the setting of vomiting and intubation. Patient currently on Zosyn, which should cover this. Patient also being empirically treated for yeast given spillage with Diflucan. Cultures of purulent material from Mondays surgery pending this a.m.. Exam Vital Signs (past 8 hours): - 01/29/19 00:50 01/29/19 01:00 01/29/19 01:30 Temperature 101.0 F H 101.3 F H 101.3 F H Pulse Rate 106 H Respiratory Rate 22 Blood Pressure 128/74 Pulse Oximetry 100 01/29/19 02:00 01/29/19 03:00 01/29/19 03:06 Temperature 101.3 F H 101.1 F H 101.1 F H Pulse Rate 106 H 111 H 110 H Respiratory Rate 22 21 21 Blood Pressure 103/62 106/61 106/61 Pulse Oximetry 100 94 01/29/19 04:00 01/29/19 04:29 01/29/19 05:00 Temperature 100.8 F H 100.8 F H 101.1 F H Pulse Rate 111 H 110 H Respiratory Rate 24 24 Blood Pressure 105/58 L 115/62 Pulse Oximetry 95 97 01/29/19 05:08 01/29/19 05:19 01/29/19 06:00 Temperature 101.1 F H 101.1 F H 101.1 F H Pulse Rate 111 H 113 H Respiratory Rate 21 22 Blood Pressure 115/62 132/70 Pulse Oximetry 97 93 01/29/19 06:33 01/29/19 06:42 01/29/19 07:00 Temperature 101.1 F H 101.1 F H 101.1 F H Pulse Rate 109 H Respiratory Rate 21 Blood Pressure 99/63 Pulse Oximetry 92 Fraction of Inspired Oxygen 35 Oxygen Delivery Method Mechanical Ventilation Oxygen Flow Rate 35 Const Other: Patient resting in bed, opens eyes to voice cyst. GI Inspection: obesity Palpation: soft Other: Wound Vac present, appears intact. Mild erythema at the just skin edge. Objective Labs Result Diagrams: 01/29/19 10:45 01/29/19 10:45 Labs: Laboratory Results - last 24 hr 01/25/19 01/28/19 01/28/19 07:15 04:50 05:08 WBC RBC Hgb Hct MCV MCH MCHC RDW Plt Count Neut % (Auto) Lymph % (Auto) [place] % (Auto) Eos % (Auto) Baso % (Auto) Neut # (Auto) Lymph # (Auto) [place] # (Auto) Eos # (Auto) Baso # (Auto) Total Counted Seg Neutrophils % Band Neutrophils % Lymphocytes % (Manual) Monocytes % (Manual) Metamyelocytes % Neutrophils # (Manual) Platelet Estimate RBC Morphology ABG pH 7.39 ABG pCO2 41.6 ABG pO2 107 H ABG HCO3 25 ABG Total CO2 27 ABG O2 Saturation 98 ABG Base Excess 1.0 FiO2 40 Sodium 134 L Potassium 3.3 L Chloride 102 Carbon Dioxide 26 BUN 13 Creatinine 0.70 Estimated GFR > 60.0 BUN/Creatinine Ratio 18.6 Glucose 108 H Calcium 7.4 L Total Bilirubin 0.7 AST 58 H ALT 17 Alkaline Phosphatase 89 Total Protein 4.8 L Albumin 2.3 L Globulin 2.5 Albumin/Globulin Ratio 0.9 L Crossmatch See Detail 01/28/19 01/28/19 01/28/19 11:48 22:05 22:05 WBC 8.1 RBC 3.49 L Hgb 11.0 L Hct 30.9 L MCV 88.4 MCH 31.4 MCHC 35.5 RDW 13.5 Plt Count 139 L Neut % (Auto) Software Architect Lymph % (Auto) Software Architect [place] % (Auto) Software Architect Eos % (Auto) Software Architect Baso % (Auto) Software Architect Neut # (Auto) Software Architect Lymph # (Auto) Software Architect [place] # (Auto) Software Architect Eos # (Auto) Software Architect Baso # (Auto) Software Architect Total Counted 100 Seg Neutrophils % 64.0 Band Neutrophils % 18.0 H Lymphocytes % (Manual) 11.0 L Monocytes % (Manual) 6.0 Metamyelocytes % 1.0 H Neutrophils # (Manual) 6642 H Platelet Estimate Decreased on smear RBC Morphology Normal morphology ABG pH 7.42 ABG pCO2 37.8 ABG pO2 55 L ABG HCO3 24 ABG Total CO2 26 ABG O2 Saturation 89 L ABG Base Excess 0.0 FiO2 0.35 Sodium 134 L Potassium 3.0 L Chloride 102 Carbon Dioxide 28 BUN 13 Creatinine 0.60 Estimated GFR > 60.0 BUN/Creatinine Ratio 21.7 Glucose 133 H Calcium 7.2 L Total Bilirubin 0.7 AST 61 H ALT 20 Alkaline Phosphatase 93 Total Protein 5.1 L Albumin 2.4 L Globulin 2.7 Albumin/Globulin Ratio 0.9 L Crossmatch 01/29/19 05:29 WBC RBC Hgb Hct MCV MCH MCHC RDW Plt Count Neut % (Auto) Lymph % (Auto) [place] % (Auto) Eos % (Auto) Baso % (Auto) Neut # (Auto) Lymph # (Auto) [place] # (Auto) Eos # (Auto) Baso # (Auto) Total Counted Seg Neutrophils % Band Neutrophils % Lymphocytes % (Manual) Monocytes % (Manual) Metamyelocytes % Neutrophils # (Manual) Platelet Estimate RBC Morphology ABG pH 7.40 ABG pCO2 42.7 ABG pO2 80 ABG HCO3 26 ABG Total CO2 28 ABG O2 Saturation 96 ABG Base Excess 2.0 FiO2 0.35 Sodium Potassium Chloride Carbon Dioxide BUN Creatinine Estimated GFR BUN/Creatinine Ratio Glucose Calcium Total Bilirubin AST ALT Alkaline Phosphatase Total Protein Albumin Globulin Albumin/Globulin Ratio Crossmatch Assessment & Plan Assessment & Plan narrative: his patient is a 33yo POD#4 s/p exploratory laparotomy with end to end small bowel reanastomosis of a small bowel injury, which occurred during a laparoscopic left salpingooophorectomy for a left ovarian dermoid cyst. She is now POD#2 s/p an exploratory laparotomy with abscess drainage and anastamosis revision. The patient remains critically ill, remains intubated after failed breathing trial yesterday, but no longer requires pressors and has normalized and labs. The patient remains on Zosyn and has been treated empirically with Diflucan given stool spillage. Suspected aspiration pneumonia in the setting of vomiting and intubation, but patient being covered with broad-spectrum antibiotics in the Zosyn for this. Wound VAC in place, wound appears to be healing well. Patient with good urine output, hopefully mobilizing 3rd space fluid. Appreciate assistance with management of septic shock and bowel injury by Dr. Weinberg and Dr. Aguirre. Quality VTE Deep Vein Thrombosis/Pulmonary Embolism Present on Admission: No
[2019-01-29] MEDS: metroNIDAZOLE 500 MG/100 ML PIGGYBACK 100 MG IV ×3 (08:50→21:16)
[2019-01-29] MEDS: PANTOPRAZOLE 40 MG VIAL IV (08:52)
[2019-01-29] MEDS: ALBUTEROL 2.5 MG/3 ML NEB (ADULT) INH ×5 (10:09→23:54)
[2019-01-29] MEDS: CEFEPIME 2 GM in SODIUM CHLORIDE 0.9% 100 ML 200 ML IV ×2 (10:12→22:26)
[2019-01-29 10:59] LABS: Hematocrit 30.8 % (36-46); Hemoglobin 10.8 g/dL (12.0-16.0); Mean Corpuscular HGB Conc 35.3 % (30-36); Mean Corpuscular Hemoglobin 30.8 PG (26-34); Mean Corpuscular Volume 87.3 fL (80-100); Platelet Count 147 X10^3/uL (150-400); Red Blood Cell Count 3.52 X10^6/uL (4.0-5.2); Red Cell Distribution Width 13.7 % (11.6-14.8)
[2019-01-29 11:10] LABS: Alanine Aminotransferase 22 IU/L (<35); Albumin 2.5 g/dL (3.5-5.0); Albumin Globulin Ratio 0.9 (1.0-2.8); Alkaline Phosphatase 107 U/L (38-126); Aspartate Aminotransferase 80 IU/L (14-36); BUN Creatinine Ratio 23.3 (6-22); Bilirubin Total 0.8 mg/dL (0.2-1.3); Blood Urea Nitrogen 14 mg/dL (7-17); Calcium 7.2 mg/dL (8.4-10.2); Carbon Dioxide 28 mmol/L (22-32); Chloride 102 mmol/L (98-107); Estimated Glomerular Filt Rate > 60.0 mL/min (>60); Globulin 2.8 g/dL (1.7-4.1); Glucose 140 mg/dL (70-100); HEMOLYSIS < 15 (0-50); Magnesium 2.4 mg/dL (1.6-2.3); Potassium 3.4 mmol/L (3.4-5.1); Sodium 135 mmol/L (137-145); Total Protein 5.3 g/dL (6.3-8.2)
[2019-01-29 11:39] LABS: Neutrophils Absolute Manual 6570 /uL (3000-5900); Total Cells Counted 100
[2019-01-29 11:40] LABS: Dohle Bodies 1+; Toxic Granulation Present
[2019-01-29] MEDS: LACTATED RINGERS 1,000 ML 108 ML IV (12:38)
[2019-01-29] MEDS: DEXTROSE 5% WATER 500 ML 21 ML IV (12:39)
[2019-01-29] MEDS: LORazepam 20 MG in SODIUM CHLORIDE 0.9% 100 ML IV (12:39)
--- NOTE | 2019-01-29 14:31 | PC.NURSE ---
Day Shift Note Pt sedated on Ativan at 0.5 mg/hr and propofol 20 mcg/kg/min. Off at 0805 for sedation vacation, at 0905 pt eyes open and tracking, following commands. CPAP trial started at this time by RT - lasted 13 min and had to be put back to ventilator settings due to RR up to the 40s and pulling low volumes. Update given to Dr. Weinberg with plans to try again this afternoon. Ativan gtt restarted at 0.25 mg and propofol resumed. Lung sounds decreased with some scattered rhonchi, minimal secretions suctioned out of ET tube. ST in the 110-120 bpm range. Byers in place and draining clear yuniel urine - 100 ml output at about 1030, reviewed with Dr. Aguirre who was at bedside and order received to increased IV fluids to 150 ml/hr total. OG tube noted on AM assessment to be unsecured with no output in suction canister, out of place per AM CXR. Advanced OG tube about 20 cm with green output resulting, Dr. Aguirre updated. Turning every 2 hrs. Bed alarm on. Soft restraints in place to bilateral wrist.
--- NOTE | 2019-01-29 15:13 | PM.PN.1 ---
Subjective Subjective Date Patient Seen: 01/29/19 Time Patient Seen: 08:30 Interval history: Sophie Verdin is a 33-year-old female with history of chronic low back pain, and possible PCOS who presented to the emergency room today with abdominal pain and emesis. She is status post laparoscopic left salpingoophorectomy on the morning of 01/24 for a large dermoid cyst, she underwent a diagnostic laparoscopy which revealed a small bowel perforation. She is now status post short-segment small bowel resection on 01/25 and abdominal closure on 01/27 and admitted to the ICU. Medicine is consulted for assistance with management for septic shock and ventilator management. This morning she is remains off of pressors. Sedation vacation was done followed by breathing trial which she became tachypneic on pressure support. She also became quite tachycardic as well. She remains febrile as well. Her cultures came back with Enterobacter resistant to Zosyn. Given sensitivities she was switched to cefepime for her infection, and changed to Flagyl for aspiration coverage. She did not tolerate a breathing trial this morning, lasting only a few minutes. She may be quite anxious and will re-attempt this afternoon while leaving on Ativan infusion to see if this helps. Exam Vital Signs (past 8 hours): - 01/29/19 08:00 01/29/19 09:00 01/29/19 09:03 Temperature 100.9 F H 100.8 F H Pulse Rate 114 H 117 H Respiratory Rate 25 H 42 H Blood Pressure 131/81 140/85 Pulse Oximetry 99 96 118 H 01/29/19 10:00 01/29/19 11:00 01/29/19 12:00 Temperature 100.8 F H 100.6 F H 101.1 F H Pulse Rate 117 H 122 H 118 H Respiratory Rate 23 26 H 21 Blood Pressure 129/73 118/67 124/67 Pulse Oximetry 97 98 98 01/29/19 13:00 01/29/19 14:00 Temperature 101.3 F H 100.9 F H Pulse Rate 118 H 118 H Respiratory Rate 20 21 Blood Pressure 129/74 101/48 L Pulse Oximetry 97 97 Fraction of Inspired Oxygen 35 Oxygen Delivery Method Mechanical Ventilation Oxygen Flow Rate 35 Narrative Exam Narrative: GENERAL APPEARANCE: Obese female, improved pallor, intubated, opens eyes to voice. SKIN: Inspection of the skin reveals no rashes, ulcerations or petechiae. HEENT: ETT in place, no secretions, oral mucosa appears dry but improved. NECK: Supple and symmetric. There was no thyroid enlargement, and no tenderness, or masses were felt. CHEST: Normal AP diameter and normal contour without any kyphoscoliosis. LUNGS: Auscultation of the lungs anteriorly revealed coarse breath sounds on the right however these have improved, left lung clear to auscultation. CARDIOVASCULAR: Tachycardic and regular without murmurs rubs or gallops. ABDOMEN: abdomen with wound VAC. Dressings c/d/i. MUSCULOSKELETAL: There were no effusions noted. EXTREMITIES: No cyanosis, clubbing. There is slight peripheral nonpitting edema bilaterally, minimal to trace. NEUROLOGIC: Lightly sedated but opens eyes to voice, follows commands, moving all extremities equally. Objective Labs Result Diagrams: 01/29/19 10:45 01/29/19 10:45 Labs: Laboratory Results - last 24 hr 01/25/19 01/28/19 01/28/19 07:15 22:05 22:05 WBC 8.1 RBC 3.49 L Hgb 11.0 L Hct 30.9 L MCV 88.4 MCH 31.4 MCHC 35.5 RDW 13.5 Plt Count 139 L Neut % (Auto) Palletizer Lymph % (Auto) Palletizer [place] % (Auto) Palletizer Eos % (Auto) Palletizer Baso % (Auto) Palletizer Neut # (Auto) Palletizer Lymph # (Auto) Palletizer [place] # (Auto) Palletizer Eos # (Auto) Palletizer Baso # (Auto) Palletizer Total Counted 100 Seg Neutrophils % 64.0 Band Neutrophils % 18.0 H Lymphocytes % (Manual) 11.0 L Atypical Lymphs % Monocytes % (Manual) 6.0 Eosinophils % (Manual) Basophils % (Manual) Metamyelocytes % 1.0 H Myelocytes % Neutrophils # (Manual) 6642 H Toxic Granulation Dohle Bodies Platelet Estimate Decreased on smear RBC Morphology Normal morphology ABG pH ABG pCO2 ABG pO2 ABG HCO3 ABG Total CO2 ABG O2 Saturation ABG Base Excess FiO2 Sodium 134 L Potassium 3.0 L Chloride 102 Carbon Dioxide 28 BUN 13 Creatinine 0.60 Estimated GFR > 60.0 BUN/Creatinine Ratio 21.7 Glucose 133 H Calcium 7.2 L Phosphorus Magnesium Total Bilirubin 0.7 AST 61 H ALT 20 Alkaline Phosphatase 93 Total Protein 5.1 L Albumin 2.4 L Globulin 2.7 Albumin/Globulin Ratio 0.9 L Crossmatch See Detail 01/29/19 01/29/19 01/29/19 05:29 10:45 10:45 WBC 9.0 RBC 3.52 L Hgb 10.8 L Hct 30.8 L MCV 87.3 MCH 30.8 MCHC 35.3 RDW 13.7 Plt Count 147 L Neut % (Auto) Lymph % (Auto) [place] % (Auto) Eos % (Auto) Baso % (Auto) Neut # (Auto) Lymph # (Auto) [place] # (Auto) Eos # (Auto) Baso # (Auto) Total Counted 100 Seg Neutrophils % 62.0 Band Neutrophils % 11.0 H Lymphocytes % (Manual) 5.0 L Atypical Lymphs % 1.0 H Monocytes % (Manual) 11.0 Eosinophils % (Manual) 2.0 Basophils % (Manual) 1.0 Metamyelocytes % 3.0 H Myelocytes % 4.0 H Neutrophils # (Manual) 6570 H Toxic Granulation Present H Dohle Bodies 1+ H Platelet Estimate RBC Morphology See below ABG pH 7.40 ABG pCO2 42.7 ABG pO2 80 ABG HCO3 26 ABG Total CO2 28 ABG O2 Saturation 96 ABG Base Excess 2.0 FiO2 0.35 Sodium 135 L Potassium 3.4 Chloride 102 Carbon Dioxide 28 BUN 14 Creatinine 0.60 Estimated GFR > 60.0 BUN/Creatinine Ratio 23.3 H Glucose 140 H Calcium 7.2 L Phosphorus 3.0 Magnesium 2.4 H Total Bilirubin 0.8 AST 80 H ALT 22 Alkaline Phosphatase 107 Total Protein 5.3 L Albumin 2.5 L Globulin 2.8 Albumin/Globulin Ratio 0.9 L Crossmatch Assessment & Plan Assessment & Plan narrative: Sopihe Verdin is a 33-year-old female with history of chronic low back pain, and possible PCOS who presented to the emergency room today with abdominal pain and emesis. She is status post laparoscopic left salpingoophorectomy on the morning of 01/24 for a large dermoid cyst, she underwent a diagnostic laparoscopy which revealed a small bowel perforation. She is now status post short-segment small bowel resection and subsequent abdominal closure and admitted to the ICU. Medicine is consulted for assistance with management for septic shock and ventilator management. She is now off pressor support and continues to improve. She failed a spontaneous breathing trial today (day #2). Will continue daily sedation vacations and breathing trials until she is able to be extubated. 1. Septic shock, present on admission, resolved -secondary to bowel perforation and subsequent stool spillage into her abdomen. Patient was given antibiotics and was fluid resuscitated. She ultimately required vasopressin and Levophed but is now off pressors. She has been spiking fevers again, and her cultures came back resistant to Zosyn. Her antibiotics were changed to cefepime and Flagyl was added for possible aspiration. -chest x-ray read as left retrocardiac infiltrate versus atelectasis. However patient was urgently taken to operating room and had vomited prior. Her breath sounds remain coarse on the right. Repeat chest x-ray showed a worsening infiltrate. -Zosyn was continued until 01/29, then changed to cefepime and Flagyl based on cultures. -attempt daily sedation vacation and breathing trial in attempts to possibly extubate. Will attempt trial with Ativan infusion today as patient does have a significant history of anxiety, and multiple reasons to be anxious while not sedated. -respiratory therapy eval and treat - UA negative for infection 2. Acute renal failure, present on admission, resolved- Baseline cr 0.6, on admission 1.2 from septic shock and hypovolemic. Cr now improved to 0.7. - continue care as noted above. 3. Acute hypoxemic respiratory failure secondary to sepsis, ABG on vent showing PF ratio of 202 initially and is slightly improved today. Will continue to treat underling sepsis and optimize ventilatory status until hemodynamically improved. Possible aspiration given emesis and then subsequent intubation as well, however patient is on zosyn at this time for intra-abdominal source which will cover aspiration event. - continue blood gas in AM while intubated. - continue management of sepsis as noted above. 4. Probable aspiration. Patient with continued fevers, chest x-ray showing opacity. Her Zosyn was changed to cefepime and Flagyl today 5. Anion gap metabolic acidosis, present on admission, resolved- secondary to septic shock and elevated lactate. Improved with treatement of above sepsis. 6. Hyponatremia, mild, acute -likely secondary to hypovolemia as evidence by UA which has high specific gravity. -continue fluid support for sepsis as noted above. 7. Coagulopathy - elevated INR and bilirubin likely related to sepsis and hypotension. Resolved. 8. Elevated glucose - may be reactive secondary to sepsis however given possible PCOS and obesity diabetes is a possibilty. - A1c will be unreliable given recent transfusion - FS q6 hr with corrective sliding scale - recommend outpatient A1c after approx. 90 days given transfusion. 9. Dehydration, acute, present on admission, improved - secondary to nausea / vomiting and intra-abdominal spillage. Hg on admission was 19 (baseline of around 13). She will need continued IVF for management of sepsis as well as replacement of her abdominal losses given drains. 10. S/p Small bowel resection - complication of laparoscopic salpingoophorectomy. -now status post abdominal closure on 01/27 -now started on TPN I spent 35 minutes providing critical care management this patient. This excludes time spent in performing separately billed procedures. Medicine will continue to follow this patient. Quality VTE Deep Vein Thrombosis/Pulmonary Embolism Present on Admission: No
--- NOTE | 2019-01-29 16:01 | DI.RAD.S_ITS ---
PROCEDURE: XR CHEST 1V INDICATIONS: repeat assessment, intubated, worsened breath sounds TECHNIQUE: One view of the chest was acquired. COMPARISON: [facility], CR, XR CHEST 1V, 01/29/2019, 5:44. [facility], CR, XR CHEST 1V, 01/28/2019, 17:09. FINDINGS: Surgical changes and devices: Endotracheal tube in normal position. Esophagogastric tube extends below the gastric body area. A previously present PICC line from left-sided approach process the midline and enters at least the uppermost margin of the superior vena cava at the junction of the right and left brachiocephalic veins Lungs and pleura: Lungs are abnormal, with a generalized alveolar infiltration pattern and superimposed dense consolidation at the right lung base in the retrocardiac left lower lobe. This pattern has been previously present including earlier same day and 01/28/19.. No pleural effusions or pneumothorax. Mediastinum: Mediastinal contours appear normal. Heart size is normal. Bones and chest wall: No suspicious bony lesions. Overlying soft tissues appear unremarkable. IMPRESSION: Relatively severe airspace disease present bilaterally, greater at the retrocardiac left lower lobe than elsewhere, but without definite change control analyst time over the prior 2 days. Lines and tubes as discussed, normal positioning. PICC line extends to the junction of the right and left brachiocephalic veins (the origin of the superior vena cava). Dictated by: Maxi Metz M.D. on 01/29/2019 at 16:44 Approved by: Maxi Metz M.D. on 01/29/2019 at 16:46
--- NOTE | 2019-01-29 17:04 | PC.NURSE ---
Addendum entered by Nga Stakrey R.N. 01/29/19 22:07: 2200- Patient less tolerant of movement and desaturates with turning. Temp remains elevated despite treatment. Patient requiring more frequent suctioning secretions remain white. KRider interrupted to infuse antibiotics. Patient has potassium in her TPN as well. Patient urine output is good but urine is much more yuniel as the night has progressed. Heart rate remains elevated 115-120. We are waiting on bed assignment from [facility] for transfer to higher level of care. Original Note: 1700- Unable to do weaning trial patients lungs are coarse throughout. Small amount of secretions white noted with suctioning. Mom is at bedside. Temperature rectal is 101.1 and by 1700 had risen to 101.3 patient medicated with tylenol per rectum. Patient is over breathing the vent and is tacycardic. Sedation increased as patient is awake. Soft wrist restraints in place per order. Will monitor.
--- NOTE | 2019-01-29 17:15 | DI.RAD.S_ITS ---
PROCEDURE: XR CHEST 1V INDICATIONS: intubated TECHNIQUE: One view of the chest was acquired. COMPARISON: [facility], CR, XR CHEST 1V, 01/28/2019, 17:09. [facility], CR, XR CHEST 1V, 01/27/2019, 17:22. FINDINGS: Surgical changes and devices: Endotracheal tube appears in normal position. Esophagogastric tube is at the midline but terminates before the EG junction.. Lungs and pleura: Lungs are abnormal with persistent patchy pneumonia pattern with dense consolidation retrocardiac left lung base. No pleural effusions or pneumothorax. Mediastinum: Mediastinal contours appear normal. Heart size is normal. Bones and chest wall: No suspicious bony lesions. Overlying soft tissues appear unremarkable. IMPRESSION: Dense consolidation retrocardiac left lung base in addition to patchy pneumonia elsewhere. Esophagogastric tube has not advanced below the EG junction. Dictated by: Maxi Metz M.D. on 01/29/2019 at 8:50 Approved by: Maxi Metz M.D. on 01/29/2019 at 9:12
--- NOTE | 2019-01-29 17:22 | P.PN_ITS ---
Subjective Subjective Date Patient Seen: 01/29/19 Time Patient Seen: 17:00 Interval history: The patient is still on a ventilator. She had a trial earlier today and failed it to wean her from the ventilator Exam Vital Signs (past 8 hours): - 01/29/19 10:00 01/29/19 11:00 01/29/19 12:00 Temperature 100.8 F H 100.6 F H 101.1 F H Pulse Rate 117 H 122 H 118 H Respiratory Rate 23 26 H 21 Blood Pressure 129/73 118/67 124/67 Pulse Oximetry 97 98 98 01/29/19 13:00 01/29/19 14:00 01/29/19 15:00 Temperature 101.3 F H 100.9 F H 100.8 F H Pulse Rate 118 H 118 H 114 H Respiratory Rate 20 21 24 Blood Pressure 129/74 101/48 L 110/69 Pulse Oximetry 97 97 01/29/19 16:00 01/29/19 16:55 Temperature 101.1 F H 101.1 F H Pulse Rate 124 H Respiratory Rate Blood Pressure 127/76 Pulse Oximetry Fraction of Inspired Oxygen 35 Oxygen Delivery Method Mechanical Ventilation Oxygen Flow Rate 35 Narrative Exam Narrative: Temperature is presently on its way up. She has received Tylenol an asked him to give her Toradol as well. Lungs heart should breath sounds bilaterally throughout the lung sen heart rapid regular rate and rhythm abdomen is protuberant wound VAC is in place no unusual drainage VIPUL draining serous fluid Objective Imaging Chest x-ray: My impression: Bilateral infiltrates. Little change from prior x-rays Labs Result Diagrams: 01/29/19 10:45 01/29/19 10:45 Labs: Laboratory Results - last 24 hr 01/25/19 01/28/19 01/28/19 07:15 22:05 22:05 WBC 8.1 RBC 3.49 L Hgb 11.0 L Hct 30.9 L MCV 88.4 MCH 31.4 MCHC 35.5 RDW 13.5 Plt Count 139 L Neut % (Auto) Public Health Administrator Lymph % (Auto) Public Health Administrator [place] % (Auto) Public Health Administrator Eos % (Auto) Public Health Administrator Baso % (Auto) Public Health Administrator Neut # (Auto) Public Health Administrator Lymph # (Auto) Public Health Administrator [place] # (Auto) Public Health Administrator Eos # (Auto) Public Health Administrator Baso # (Auto) Public Health Administrator Total Counted 100 Seg Neutrophils % 64.0 Band Neutrophils % 18.0 H Lymphocytes % (Manual) 11.0 L Atypical Lymphs % Monocytes % (Manual) 6.0 Eosinophils % (Manual) Basophils % (Manual) Metamyelocytes % 1.0 H Myelocytes % Neutrophils # (Manual) 6642 H Toxic Granulation Dohle Bodies Platelet Estimate Decreased on smear RBC Morphology Normal morphology ABG pH ABG pCO2 ABG pO2 ABG HCO3 ABG Total CO2 ABG O2 Saturation ABG Base Excess FiO2 Sodium 134 L Potassium 3.0 L Chloride 102 Carbon Dioxide 28 BUN 13 Creatinine 0.60 Estimated GFR > 60.0 BUN/Creatinine Ratio 21.7 Glucose 133 H Calcium 7.2 L Phosphorus Magnesium Total Bilirubin 0.7 AST 61 H ALT 20 Alkaline Phosphatase 93 Total Protein 5.1 L Albumin 2.4 L Globulin 2.7 Albumin/Globulin Ratio 0.9 L Crossmatch See Detail 01/29/19 01/29/19 01/29/19 05:29 10:45 10:45 WBC 9.0 RBC 3.52 L Hgb 10.8 L Hct 30.8 L MCV 87.3 MCH 30.8 MCHC 35.3 RDW 13.7 Plt Count 147 L Neut % (Auto) Lymph % (Auto) [place] % (Auto) Eos % (Auto) Baso % (Auto) Neut # (Auto) Lymph # (Auto) [place] # (Auto) Eos # (Auto) Baso # (Auto) Total Counted 100 Seg Neutrophils % 62.0 Band Neutrophils % 11.0 H Lymphocytes % (Manual) 5.0 L Atypical Lymphs % 1.0 H Monocytes % (Manual) 11.0 Eosinophils % (Manual) 2.0 Basophils % (Manual) 1.0 Metamyelocytes % 3.0 H Myelocytes % 4.0 H Neutrophils # (Manual) 6570 H Toxic Granulation Present H Dohle Bodies 1+ H Platelet Estimate RBC Morphology See below ABG pH 7.40 ABG pCO2 42.7 ABG pO2 80 ABG HCO3 26 ABG Total CO2 28 ABG O2 Saturation 96 ABG Base Excess 2.0 FiO2 0.35 Sodium 135 L Potassium 3.4 Chloride 102 Carbon Dioxide 28 BUN 14 Creatinine 0.60 Estimated GFR > 60.0 BUN/Creatinine Ratio 23.3 H Glucose 140 H Calcium 7.2 L Phosphorus 3.0 Magnesium 2.4 H Total Bilirubin 0.8 AST 80 H ALT 22 Alkaline Phosphatase 107 Total Protein 5.3 L Albumin 2.5 L Globulin 2.8 Albumin/Globulin Ratio 0.9 L Crossmatch Assessment & Plan Post-op Postoperative Procedures: Procedures Operation Date: 01/25/19 08:15 <No data on this case meets the specified criteria> Operation Date: 01/25/19 08:25 Actual Procedures Side Surgeon p Laparoscopy, Diagnostic, STOCKROOM KEEPER/ resection of small portion of small bowel and primary anastamosis Re Hernandez MD Operation Date: 01/27/19 17:15 Actual Procedures Side Surgeon p Exploratory Laparotomy GEN/resection with primary anastomosis, washout/closed abd Dayo Aguirre MD Postoperative status narrative: Stable but critical she is tachycardic in her pulse is elevating as she has become febrile. Treating or fever now. Culture results showed an enterobacter that was not sensitive to Zosyn. She was switched to appropriate antibiotics. She is now on a broad-spectrum cephalosporin to which the bacteria was sensitive and metronidazole. She also is receiving Diflucan. Urine output has been slightly below have cc per kg per hour. Her IV fluid rate was increased slightly. TPA has been tolerated fairly well so far I added additional insulin to her bag as her sugars are running in the 140s. The after 1 L at present but continuing to give her lipids. Postoperative plan narrative: Continue antibiotics continue DVT prophylaxis check electrolytes CBC her white blood cell count actually has gone up a little bit and the differentials little more normal today. Check labs in the a.m. liver seems to be tolerating the TPN thus far. Discussed with Dr. Shah and Dr. hernandez and the patient's mother the possibility of transfer if we're unable to wean her from the vent tomorrow. Quality VTE Deep Vein Thrombosis/Pulmonary Embolism Present on Admission: No
[2019-01-29 17:46] LABS: Alanine Aminotransferase 24 IU/L (<35); Albumin 2.6 g/dL (3.5-5.0); Albumin Globulin Ratio 0.9 (1.0-2.8); Alkaline Phosphatase 109 U/L (38-126); Aspartate Aminotransferase 85 IU/L (14-36); BUN Creatinine Ratio 21.7 (6-22); Bilirubin Total 0.8 mg/dL (0.2-1.3); Blood Urea Nitrogen 13 mg/dL (7-17); Calcium 7.2 mg/dL (8.4-10.2); Carbon Dioxide 28 mmol/L (22-32); Chloride 102 mmol/L (98-107); Estimated Glomerular Filt Rate > 60.0 mL/min (>60); Globulin 2.9 g/dL (1.7-4.1); Glucose 132 mg/dL (70-100); HEMOLYSIS < 15 (0-50); Potassium 3.3 mmol/L (3.4-5.1); Sodium 136 mmol/L (137-145); Total Protein 5.5 g/dL (6.3-8.2)
[2019-01-29 17:57] LABS: Hemoglobin 10.7 g/dL (12.0-16.0); White Blood Cell Count 9.2 X10^3/uL (4.5-11.0)
--- NOTE | 2019-01-29 17:59 | PM.DS.1 ---
History of Present Illness History of Present Illness Date Patient Seen: 01/29/19 Time Patient Seen: 17:59 Chief complaint: surgery yesterday/throwing up Narrative: This note is being dictated in anticipation of transfer to a higher level of care. The patient is a woman who had a laparoscopic removal of a dermoid on 01/24. A completion of operation and irrigation there was no evidence of any problem. However the patient returned the next day hypotensive and tachycardic to the emergency room. Because of a presumption of intraperitoneal bleeding she underwent emergency transfusion of a unit of O negative blood and a CT scan. She was taken emergently to the operating room and found to have spillage of intestinal contents in her abdomen. I was called during that operation to conduct an exploration and deal with the intestinal issue. Discharge Providers Provider Date of admission: 01/25/19 07:44 Discharge Date: 01/29/19 Primary care physician: Maye Borja PA-C Consults: 01/25/19 12:05 Consult to Hospitalist Service Routine Comment: Consulting Provider: Hipolito Weinberg Reason for consultation: NEED FOR VENT/PRESSOR ASSISTANCE 01/25/19 12:22 Consult After Hours PICC Line RN Routine Comment: 01/25/19 13:16 Consult to Discharge Planning Routine Comment: 01/25/19 14:20 Consult to Respiratory Therapy Evaluate & Treat Comment: Physician Instructions: Evaluate and treat 01/27/19 17:15 Consult to Dietitian, Adult Routine Comment: Reason For Exam: Patient on Ventilator and NPO Discharge provider: Dayo Aguirre MD Summary Hospital Course Discharge Diagnosis: 1. Acute septic shock secondary to 2 With hypotension, tachycardia, low white blood cell count, lactic acidosis resolved at transfer 2. Acute Iatrogenic small bowel transection with spillage of intestinal contents throughout the abdomen. 3. Acute Respiratory failure with ventilator dependence at time of discharge 4. Acute Hypokalemia corrected at time of discharge 5. Glucose intolerance uncertain of duration but possibly exacerbated by sepsis treated with insulin 6. Chronic asthma treated with respiratory treatments 7. Acute ileus due to acute illness/sepsis /2 operations 8. Acute infiltrates both lungs consistent with pneumonia. Cultures are pending. 9. Acute blood loss anemia. Hospital Course: The patient was taken emergently to the operating room and underwent a laparoscopy. It was rapidly determined that she had intestinal spillage and I was called she underwent an open exploration of her abdomen and was found to have a large amount of spillage throughout the abdomen including under both sides of her diaphragm. She was found to have a complete transection of the small intestine Krebs good was controlled and ultimately an end-to-end anastomosis was carried out and tested for leak. The abdomen was copiously irrigated and I because of the large amount of spilling in her instability I chose to leave her abdomen open and take her back to the operating room when more stable for closure and further washout. Her postoperative night and the following day she was on pressors including Levophed and dopamine to maintain NM AP greater than 60. She was tachycardic as high as 150 but mostly in the 130s throughout the night day. She was given broad-spectrum antibiotics intraoperatively and postoperatively Zosyn and was also treated with Diflucan because of presumed spillage of yeast fungus with the small bowel contents. She required a large amount of fluid resuscitation as well. Ultimately through the next day and the following morning were able to wean her off her pressors and on 03/30 was taken back to the operating room to wash her out re-examined the anastomosis and close. While the anastomosis looked fine and healthy, Under pressure testing of the anastomosis there was a very small leak. I chose to resect and reanastomose rather than try to repair this. A new [id number] stapled anastomosis was created and appeared to be intact at completion. The abdomen was irrigated copiously and drain left in the pelvis. The midline was closed with interrupted 1. Maxon [id number] sutures and the skin and subcutaneous tissue left open and a wound VAC applied. Since her 2nd procedure she has remained tachycardic with a pulse in the low 100s to 120s. She has been intermittently febrile. Cultures taken at the 2nd operation grew an enterobacter that was not sensitive to Zosyn and so her antibiotics were switched to cefepime to which the organism was sensitive, and Flagyl. Those antibiotics were begun this morning 01/29 when the culture result was available. Cultures of her sputum thus far have grown a scant amount of bacteria and were being re-incubated. No ID of a bacteria has been released as of yet. The patient has not required any pressors since her 2nd operation. She has made adequate urine. Her BUN and creatinine have remained normal. Her white count has slowly climbed as might be expected and her band forms have decreased. She has a hematocrit of 30.(she lost little blood during the 2 operations that she had since 01/27). Patient was coagulopathic initially but that corrected prior to her 2nd operation. The patient was begun on 1 L of TPN on 01 28, the day after her 2nd operation. Her glucoses were in the 140s. There was 10 units of insulin in this L bag of TPN. She was also given lipids. Additional insulin was placed on the bag today (15 units of Humulin regular) and a small amount of potassium was added as well as other standard addition such as multiple vitamins, electrolytes and micronutrients. In anticipation of the need to change her wound VAC and the need for the accepting physician to examine her wound we will remove the wound VAC at our institution and replace it with a saline wet to dry prior to transfer. One particular unusual event occurred. On arrival to the ER, because of her hypotension and tachycardia and recent operation, she was thought to be in hypovolemic shock from intraperitoneal bleeding. She was given a unit of O negative blood emergently. however post transfusion she had a positive agglutination test. The patient has never had a transfusion and this seemed rather unusual. Further testing however of warm samples revealed that the unit was compatible with her blood. It is presumed she may have a cold agglutinin reaction. She may be difficult to cross match should she require additional transfusion. We had no evidence of any untoward reaction to this transfusion, though many of the signs of a transfusion reaction would be masked by her response to septic shock and a major operation. Presently she is on a volume control of 450 tidal volume and rate of 14 with an FiO2 of 35%. She is breathing at a rate of 24. Exam Vital Signs (past 8 hours): - 01/29/19 10:00 01/29/19 11:00 01/29/19 12:00 Temperature 100.8 F H 100.6 F H 101.1 F H Pulse Rate 117 H 122 H 118 H Respiratory Rate 23 26 H 21 Blood Pressure 129/73 118/67 124/67 Pulse Oximetry 97 98 98 01/29/19 13:00 01/29/19 14:00 01/29/19 15:00 Temperature 101.3 F H 100.9 F H 100.8 F H Pulse Rate 118 H 118 H 114 H Respiratory Rate 20 21 24 Blood Pressure 129/74 101/48 L 110/69 Pulse Oximetry 97 97 01/29/19 16:00 01/29/19 16:55 01/29/19 17:00 Temperature 101.1 F H 101.1 F H 101.5 F H Pulse Rate 124 H 115 H Respiratory Rate Blood Pressure 127/76 154/88 H Pulse Oximetry 01/29/19 17:23 Temperature 101.3 F H Pulse Rate Respiratory Rate Blood Pressure Pulse Oximetry Fraction of Inspired Oxygen 35 Oxygen Delivery Method Mechanical Ventilation Oxygen Flow Rate 35 Narrative Exam Narrative: Patient remains on a ventilator with an OG tube. She is intermittently responsive when her sedation is lightened. She has coarse breath sounds bilaterally throughout both lung sen. Heart rapid rate and rhythm I don't appreciate a murmur. Abdomen is protuberant with a wound VAC in place.(we will remove this and place a saline wet to dry dressing for transfer as the wound VAC is due to be changed and the wound will need to be examined at the next hospital arrival point). Byers is in place. Pelvic drain is in place. Objective Labs Result Diagrams: 01/29/19 10:45 01/29/19 17:18 Labs: Laboratory Results - last 24 hr 01/25/19 01/28/19 01/28/19 07:15 22:05 22:05 WBC 8.1 RBC 3.49 L Hgb 11.0 L Hct 30.9 L MCV 88.4 MCH 31.4 MCHC 35.5 RDW 13.5 Plt Count 139 L Neut % (Auto) [employer] Lymph % (Auto) [employer] [place] % (Auto) [employer] Eos % (Auto) [employer] Baso % (Auto) [employer] Neut # (Auto) Super[employer] Lymph # (Auto) Super[facility] [employer] [place] # (Auto) Supervisor [employer] Eos # (Auto) Supervisor [employer] Baso # (Auto) Supervisor [employer] Total Counted 100 Seg Neutrophils % 64.0 Band Neutrophils % 18.0 H Lymphocytes % (Manual) 11.0 L Atypical Lymphs % Monocytes % (Manual) 6.0 Eosinophils % (Manual) Basophils % (Manual) Metamyelocytes % 1.0 H Myelocytes % Neutrophils # (Manual) 6642 H Toxic Granulation Dohle Bodies Platelet Estimate Decreased on smear RBC Morphology Normal morphology ABG pH ABG pCO2 ABG pO2 ABG HCO3 ABG Total CO2 ABG O2 Saturation ABG Base Excess FiO2 Sodium 134 L Potassium 3.0 L Chloride 102 Carbon Dioxide 28 BUN 13 Creatinine 0.60 Estimated GFR > 60.0 BUN/Creatinine Ratio 21.7 Glucose 133 H Calcium 7.2 L Phosphorus Magnesium Total Bilirubin 0.7 AST 61 H ALT 20 Alkaline Phosphatase 93 Total Protein 5.1 L Albumin 2.4 L Globulin 2.7 Albumin/Globulin Ratio 0.9 L Crossmatch See Detail 01/29/19 01/29/19 01/29/19 05:29 10:45 10:45 WBC 9.0 RBC 3.52 L Hgb 10.8 L Hct 30.8 L MCV 87.3 MCH 30.8 MCHC 35.3 RDW 13.7 Plt Count 147 L Neut % (Auto) Lymph % (Auto) [place] % (Auto) Eos % (Auto) Baso % (Auto) Neut # (Auto) Lymph # (Auto) [place] # (Auto) Eos # (Auto) Baso # (Auto) Total Counted 100 Seg Neutrophils % 62.0 Band Neutrophils % 11.0 H Lymphocytes % (Manual) 5.0 L Atypical Lymphs % 1.0 H Monocytes % (Manual) 11.0 Eosinophils % (Manual) 2.0 Basophils % (Manual) 1.0 Metamyelocytes % 3.0 H Myelocytes % 4.0 H Neutrophils # (Manual) 6570 H Toxic Granulation Present H Dohle Bodies 1+ H Platelet Estimate RBC Morphology See below ABG pH 7.40 ABG pCO2 42.7 ABG pO2 80 ABG HCO3 26 ABG Total CO2 28 ABG O2 Saturation 96 ABG Base Excess 2.0 FiO2 0.35 Sodium 135 L Potassium 3.4 Chloride 102 Carbon Dioxide 28 BUN 14 Creatinine 0.60 Estimated GFR > 60.0 BUN/Creatinine Ratio 23.3 H Glucose 140 H Calcium 7.2 L Phosphorus 3.0 Magnesium 2.4 H Total Bilirubin 0.8 AST 80 H ALT 22 Alkaline Phosphatase 107 Total Protein 5.3 L Albumin 2.5 L Globulin 2.8 Albumin/Globulin Ratio 0.9 L Crossmatch 01/29/19 17:18 WBC RBC Hgb Hct MCV MCH MCHC RDW Plt Count Neut % (Auto) Lymph % (Auto) [place] % (Auto) Eos % (Auto) Baso % (Auto) Neut # (Auto) Lymph # (Auto) [place] # (Auto) Eos # (Auto) Baso # (Auto) Total Counted Seg Neutrophils % Band Neutrophils % Lymphocytes % (Manual) Atypical Lymphs % Monocytes % (Manual) Eosinophils % (Manual) Basophils % (Manual) Metamyelocytes % Myelocytes % Neutrophils # (Manual) Toxic Granulation Dohle Bodies Platelet Estimate RBC Morphology ABG pH ABG pCO2 ABG pO2 ABG HCO3 ABG Total CO2 ABG O2 Saturation ABG Base Excess FiO2 Sodium 136 L Potassium 3.3 L Chloride 102 Carbon Dioxide 28 BUN 13 Creatinine 0.60 Estimated GFR > 60.0 BUN/Creatinine Ratio 21.7 Glucose 132 H Calcium 7.2 L Phosphorus Magnesium Total Bilirubin 0.8 AST 85 H ALT 24 Alkaline Phosphatase 109 Total Protein 5.5 L Albumin 2.6 L Globulin 2.9 Albumin/Globulin Ratio 0.9 L Crossmatch Discharge Plan Discharge Plan Patient Disposition: Xfer Acute Care Hospital Discharge comment: ICU patient being transferred to a higher level of care Discharge orders & Medications Prescriptions: No Action pseudoephedrine HCl 30 MG tablet 30 mg PO Q6HP PRN (Reason: Congestion) Qty: 0 RF: 0 magnesium oxide 500 mg Tablet 500 mg PO BEDTIME Qty: 0 RF: 0 multivitamin [Multiple Vitamins] 1 EACH tablet 1 tab PO DAILY Qty: 0 RF: 0 cetirizine 10 MG tablet 10 mg PO DAILY PRN (Reason: Allergy Symptoms) Qty: 0 RF: 0 oxycodone 5 mg tablet 5 mg PO Q6H PRN (Reason: pain) Qty: 5 RF: 0 ondansetron 4 mg film 4 mg PO Q8H Qty: 30 RF: 0 methocarbamol 500 mg tablet 500 - 1,000 mg PO DAILY PRN (Reason: muscle spasm) RF: 0 clonazepam 1 mg tablet 0.5 - 1 mg PO DAILY PRN (Reason: Anxiety) RF: 0 gabapentin [Neurontin] 300 mg capsule 300 mg PO BEDTIME RF: 0 albuterol sulfate [Proventil HFA] 90 MCG/PUFF HFA aerosol inhaler 2 puff INH Q4H PRN (Reason: Shortness Of Breath) RF: 0 sertraline 50 mg tablet 50 mg PO QPM RF: 0 desog-e.estradiol/e.estradiol [Kariva (28)] 0.15-0.02 mgx21 /0.01 mg x 5 tablet 1 tab PO QPM RF: 0 Follow up/Referrals: Maye Borja PA-C [Primary Care Provider] - Discharge Health Status Multidrug resistant organism: No MDRO Precautions: [place] Diet/Activity/Treatments Diet: Nothing by Mouth Diet comment: Started on TPN and lipids Activity: Bed rest on ventilator Oxygen: F I O2 of 35% and intubated Discharge Data Primary Care Provider: Maye Borja VTE Deep Vein Thrombosis/Pulmonary Embolism Present on Admission: No
[2019-01-29] MEDS: AA 5 %/CALCIUM/LYTES/DEXT 20 % 1,000 ML with POTASSIUM CHLORIDE 20 MEQ, MULTIVITAMIN 10... 42.673 ML IV (18:04)
[2019-01-29] MEDS: FAT EMULSIONS 50 GM/250 ML EMULSION IV (18:04)
[2019-01-29] MEDS: ENOXAPARIN 40 MG/0.4 ML SYRINGE SUBCUT (18:04)
[2019-01-29 18:05] LABS: Hematocrit 31.3 % (36-46); Mean Corpuscular HGB Conc 34.3 % (30-36); Mean Corpuscular Hemoglobin 30.4 PG (26-34); Mean Corpuscular Volume 88.7 fL (80-100); Platelet Count 147 X10^3/uL (150-400); Red Blood Cell Count 3.53 X10^6/uL (4.0-5.2); Red Cell Distribution Width 14.1 % (11.6-14.8)
[2019-01-29 18:11] LABS: Add Manual Diff / Slide Review YES
[2019-01-29] MEDS: PROPOFOL 1,000 MG/100 ML VIAL 16.67 MG IV (18:29)
[2019-01-29 18:30] LABS: Neutrophils Absolute Manual 7268 /uL (3000-5900); Total Cells Counted 100
[2019-01-29 18:32] LABS: RBC Morphology Normal Morphology
[2019-01-29 18:33] LABS: Platelet Estimate Decreased on smear
[2019-01-29] MEDS: HYDROMORPHONE 1 MG INJ IV ×3 (18:58→23:53)
[2019-01-29 20:55] LABS: Fractionated Inspired Oxygen 35; HCO3 ABG 29 mmol/L (22-26); Oxygen Saturation ABG 96 % (95-100); PCO2 ABG 43.1 mmHg (35-45); PO2 ABG 79 mmHg (80-100); TCO2 ABG 30 mmol/L (21-31); pH ABG 7.43 (7.35-7.45)
[2019-01-30] VITALS (7 sets, daily range): BP systolic 125–140; BP diastolic 69–74; PULSE 105–125; RESP 19–24; TEMP 38–39; O2SAT 92–95
[2019-01-30] MEDS: KETOROLAC 15 MG/ML VIAL IV (00:09)
[2019-01-30] MEDS: FLUCONAZOLE 200 MG/100 ML PIGGYBACK 100 MG IV (00:59)
[2019-01-30] MEDS: HYDROMORPHONE 1 MG INJ IV ×2 (01:24→03:46)
[2019-01-30] MEDS: PROPOFOL 1,000 MG/100 ML VIAL 16.67 MG IV ×2 (02:01→03:47)
[2019-01-30] MEDS: metroNIDAZOLE 500 MG/100 ML PIGGYBACK 100 MG IV (03:16)
[2019-01-30] MEDS: ALBUTEROL 2.5 MG/3 ML NEB (ADULT) INH (03:29)
[2019-01-30] MEDS: MIDAZOLAM 5 MG/5 ML VIAL 10 MG IV (04:10)
--- NOTE | 2019-01-30 04:20 | PC.NURSE ---
Jumpbasting Machine Operator Note- Received patient at 2300, transport to [facility] Nga jamil RN phoning report to receiving facility. Patient sedated with propofol gtt, increased from 25mcg/min to 40mcg/min for RASS -2 and to keep comfortable, Ativan also infusing at 0.5mg/hr. IV Dilaudid prn and scheduled IV Toradol for pain. TPN and lipids infusing, CBG 134. ST 110-120, BP stable, see vital trends, RR 20-30, will breath with ventilator when calm. Prior to transport, Wound-Vac removed, open abdominal incision dressed with wet-to-dry dressing. Wound bed has granulated tissue, surrounding skin is erythemic. [facility] transport arrived at 0145, but gurney too narrow for patient, waited for Bariatric gurney which arrived at 0330. Patient premedicated with IV Dilaudid and Now dose of 5mg IV Versed for the transport. Medic sent with one bottle of propofol and another 5mg vial of Versed. HR 125, RR 25, BP 140/74, SpO2 94% on transport vent when patient DC'd from ICU at 0415. Patient's mother was in room most of the time. See all assessment, intervention, and Emar notes.
== END 2019-01-30 04:15 | disposition short-term general hospital (02) | DRG 856 ==
LOC: ED 07:18 → AC 07:45 → ICU 01-26 08:09
PROVIDERS: Internal Medicine; Nurse Practitioner Gerontology; Specialist; Admitting Provider Obstetrics & Gynecology; Emergency Provider Emergency Medicine; PCP Physician Assistant; Visit Provider Obstetrics & Gynecology
PROC: 0WJG4ZZ Inspection of Peritoneal Cavity, Percutaneous Endoscopic Approach (ICD-10-PCS; CPT 49320; principal; 2019-01-25 08:25)
PROC: 0DB80ZZ Excision of Small Intestine, Open Approach (ICD-10-PCS; CPT 49000; principal; 2019-01-27 17:15)
DX: T81.43XA Infection following a procedure, organ and space surgical site, initial encounter (principal); R65.21 Severe sepsis with septic shock; J96.01 Acute respiratory failure with hypoxia; K65.1 Peritoneal abscess; J18.9 Pneumonia, unspecified organism; K91.72 Accidental puncture and laceration of a digestive system organ or structure during other procedure; N17.9 Acute kidney failure, unspecified; E87.2 Acidosis; D68.8 Other specified coagulation defects; K91.89 Other postprocedural complications and disorders of digestive system; D62 Acute posthemorrhagic anemia; D59.1 Other autoimmune hemolytic anemias; Z68.42 Body mass index [BMI] 45.0-49.9, adult; K56.7 Ileus, unspecified; T81.44XA Sepsis following a procedure, initial encounter; E86.0 Dehydration; E87.5 Hyperkalemia; E66.9 Obesity, unspecified; R73.9 Hyperglycemia, unspecified; J45.909 Unspecified asthma, uncomplicated
CPT/HCPCS: 36415; 36430; 36569; 36592; 36600; 71045; 74177; 80048; 80053; 80069; 81001; 82550; 82805; 82962; 83605; 83690; 83735; 84100; 84484; 85014; 85025; 85027; 85379; 85384; 85610; 85730; 86850; 86900; 86901; 87040; 87070; 87075; 87077; 87186; 87205; 87797; 93005; 94002; 94003; 94640; 94762; 94770; 94799; 96374; 96375; 96376; 99285; 99291; 99292; P9016; B4189; C9113; J0131; J0330; J0690; J0692; J1100; J1170; J1200; J1450; J1650; J1885; J1940; J2060; J2250; J2270; J2405; J2543; J2704; J3010; J3475; J3480; J7613; Q9967

== ENCOUNTER → 2019-03-07 14:56 | Outpatient (CLI) | payer OTHER, SELFPAY ==
[2019-01-25 13:56] VITALS: BMI 39.5
[2019-01-30 03:29] VITALS: PULSE 107; RESP 23; O2SAT 95
[2019-03-07 15:12] LABS: Add Manual Diff / Slide Review NO; Basophils Absolute Auto 0 /uL (0-100); Basophils Percent Auto 0.5 % (0-2); Eosinophils Absolute Auto 100 /uL (0-450); Eosinophils Percent Auto 0.6 % (2-4); Hematocrit 27.4 % (36-46); Lymphocytes Absolute Auto 1700 /uL (1100-4500); Lymphocytes Percent Auto 18.4 % (25-40); Mean Corpuscular HGB Conc 32.8 % (30-36); Mean Corpuscular Volume 82.5 fL (80-100); Monocytes Absolute Auto 500 /uL (0-900); Monocytes Percent Auto 5.4 % (3-14); Neutrophils Absolute Auto 6700 /uL (1500-7000); Neutrophils Percent Auto 75.1 % (50-75); Platelet Count 488 X10^3/uL (150-400); Red Blood Cell Count 3.32 X10^6/uL (4.0-5.2); Red Cell Distribution Width 15.3 % (11.6-14.8)
[2019-03-07 15:23] LABS: Alanine Aminotransferase 14 IU/L (<35); Albumin 3.5 g/dL (3.5-5.0); Albumin Globulin Ratio 0.8 (1.0-2.8); Alkaline Phosphatase 130 U/L (38-126); Aspartate Aminotransferase 17 IU/L (14-36); Bilirubin Total 0.5 mg/dL (0.2-1.3); Blood Urea Nitrogen 8 mg/dL (7-17); Calcium 9.3 mg/dL (8.4-10.2); Carbon Dioxide 27 mmol/L (22-32); Chloride 99 mmol/L (98-107); Estimated Glomerular Filt Rate > 60.0 mL/min (>60); Globulin 4.5 g/dL (1.7-4.1); Glucose 83 mg/dL (70-100); HEMOLYSIS < 15 (0-50); Potassium 4.1 mmol/L (3.4-5.1); Sodium 136 mmol/L (137-145)
[2019-03-07 15:35] LABS: C-Reactive Protein Quant 13.9 mg/dL (<1.0)
== END ==
PROVIDERS: PCP Physician Assistant; Visit Provider Physician Assistant
DX: K65.1 Peritoneal abscess (principal); A41.4 Sepsis due to anaerobes
CPT/HCPCS: 80053; 85025; 86140

== ENCOUNTER → 2019-05-07 13:41 | Outpatient (CLI) | payer OTHER, SELFPAY ==
[2019-01-25 13:56] VITALS: BMI 39.5
[2019-01-30 03:29] VITALS: PULSE 107; RESP 23; O2SAT 95
[2019-05-07 14:45] LABS: Add Manual Diff / Slide Review NO; Basophils Absolute Auto 0 /uL (0-100); Basophils Percent Auto 0.1 % (0-2); Eosinophils Absolute Auto 100 /uL (0-450); Eosinophils Percent Auto 0.8 % (2-4); Hematocrit 39.9 % (36-46); Hemoglobin 13.1 g/dL (12.0-16.0); Lymphocytes Absolute Auto 1900 /uL (1100-4500); Lymphocytes Percent Auto 21.7 % (25-40); Mean Corpuscular HGB Conc 32.8 % (30-36); Mean Corpuscular Hemoglobin 26.9 PG (26-34); Mean Corpuscular Volume 81.9 fL (80-100); Monocytes Absolute Auto 400 /uL (0-900); Monocytes Percent Auto 4.6 % (3-14); Neutrophils Absolute Auto 6200 /uL (1500-7000); Neutrophils Percent Auto 72.8 % (50-75); Platelet Count 276 X10^3/uL (150-400); Red Blood Cell Count 4.88 X10^6/uL (4.0-5.2); White Blood Cell Count 8.5 X10^3/uL (4.5-11.0)
== END ==
PROVIDERS: PCP Family Medicine; Referring Provider Family Medicine; Visit Provider Family Medicine
DX: D64.9 Anemia, unspecified (principal)
CPT/HCPCS: 36415; 85025

== ENCOUNTER → 2019-05-22 14:38 | Outpatient (CLI) | payer OTHER, SELFPAY ==
[2019-01-25 13:56] VITALS: BMI 39.5
[2019-01-30 03:29] VITALS: PULSE 107; RESP 23; O2SAT 95
[2019-05-22 16:38] LABS: Thyroid Stimulating Hormone 0.58 uIU/mL (0.47-4.68)
== END ==
PROVIDERS: PCP Family Medicine; Referring Provider Internal Medicine Cardiovascular Disease; Visit Provider Internal Medicine Cardiovascular Disease
DX: R00.0 Tachycardia, unspecified (principal)
CPT/HCPCS: 36415; 84439; 84443